=== PATIENT | male | born 1970 | race Caucasian/White ===

== ENCOUNTER → 2025-10-06 19:30 | Outpatient (BNV) | payer OTHER, SELFPAY | PROVIDERS: PCP Nurse Practitioner Family; Visit Provider Internal Medicine | DX: G47.33 Obstructive sleep apnea (adult) (pediatric) (principal) | CPT/HCPCS: 95810 ==

== ENCOUNTER → 2025-10-06 20:30 | Outpatient (REF) | payer OTHER, SELFPAY ==
--- OUTSIDE RECORDS SUMMARY | 2024-11-10 04:30 | XMS_ITS | Encounter Summary ---
Author Name [facility] [place] [facility] [place] Address [address] [place] [address] Care Team Providers Care Rn Intern Name Role Phone ZANE CAO Primary Care Provider Unavaila GASTON Richardson Primary Care Provider Unavailabl e Insurance Providers: All historical and current Section Date Range: From patient's date of to the date document was created. This section includes the names of all active insurance providers for the patient. Insurance Provider Type of Coverage Plan Name Start of Policy Coverage End of Policy Coverage Group Number Member ID Insurance Provider's Telephone Number Policy Dong's Name Patient's Relationship to Policy Dong ANTHEM [place] HIGH DEDUCTIBL E HEALTH PLAN [place] [facility] Oct 09, [id number] HUGEL,DARRICK HAEL PATIENT [place]BS [place] HIGH DEDUCTIBL E HEALTH PLAN [place] [facility] Oct 09, [id number] [phone] HUGEL,DARRICK HAEL PATIENT [place] PREFERRED PROVIDER ORGANIZAT ION (PPO) [employer] [place] [employer] Oct 09, [id number] HUGEL,DARRICK HAEL PATIENT [place] PRESCRIPT ION BCBS [place] [facility] Oct 12, 2022 [id number] HUNTERLDARRICK PATIENT [place] PRESCRIPT ION [place] [facility] Oct 09, 2022 [id number] HUNTERLDARRICK PATIENT [place] ([id number]) PRESCRIPT ION [facility] Oct 12, 2022 [id number] HUNTERL,ADRRICK KEENE PATIENT [employer] PRESCRIPT ION [employer] [place] [employer] Nov 06, 2020 [id number] HUNTERL,DARRICK KEENE PATIENT [employer] PRESCRIPT ION [employer] [place] [employer] Nov 06, 2020 [id number] HUNTERL,DARRICK KEENE PATIENT [employer] [employer] PRESCRIPT [place] Nov 06, 2020 [id number] HUNTERL,DARRICK KEENE PATIENT Selected Encounter This section includes the information on record at [place] for the Encounter. Date/Time Encounter Type Encounter Description Reason Provider Source Nov 10, 2024 09:30 AM OFF/OP EST FEBRUARY X REQ PHY/QHP PRIMARY CARE/MEDICINE ICD-10-CM Z71.89 Other specified counseling SHARON MARCELO [facility] Encounter Template Text not used by [place] Assessments - Encounter Diagnoses This section includes the primary and secondary diagnoses documented for the Encounter. Date/Time Primary/Secondary Diagnosis Diagnosis Name Provider Source Nov 10, 2024 09:50 AM PRIMARY Other specified counseling SHARON MARCELO [facility] [place] [facility] Plan of Treatment: Future Appointments (+ 6 months) and Future Tests (+/- 45 days) The Plan of Treatment section includes future care activities for the patient from all [place] treatmentfacilities. This section includes future appointments and future orders which are active, pending or scheduled. Future Appointments This section includes appointments that were scheduled to occur 6 months from the date of the Encounter, up to a maximum of 20 appointments. The data comes from all [place] treatment facilities. Appointment Date/Time Appointment Type Appointme nt Facility Name Nov 17, 2024 10:00 AM [facility]ORY - [facility] Nov 17, 2024 10:00 AM [facility]ONE [facility] [place] [facility] Nov 24, 2024 03:15 PM [facility] [place] Dec 08, 2024 03:30 PM [facility] [place] [facility] Dec 19, 2024 04:00 PM [facility] [place] Dec 26, 2024 03:00 PM [facility] [place] Jan 06, 2025 02:00 PM [facility] [place] [facility] Jan 06, 2025 02:45 PM [facility] NONE [facility] [place] Jan 09, 2025 03:00 PM [facility] [place] [facility] Jan 23, 2025 03:00 PM [facility] [place] Feb 06, 2025 03:00 PM [facility] [place] February 20, 2025 03:00 PM [facility] [place] March 10, 2025 11:00 AM [facility] [place] [facility] Mar 21, 2025 01:00 PM [facility] [place] [facility] Apr 03, 2025 03:00 PM [facility] [place] [facility] Apr 17, 2025 03:00 PM [facility] [place] [facility] May 10, 2025 03:00 PM [facility] [place] Lab Results: +/- 30 days of the encounter This section includes the Chemistry and Hematology Lab Results [facility] record with [facility] for the patient. Radiology Reports and Pathology Reports are provided separately, in subsequent sections. Lab Results This section contains the Chemistry/Hematology Results that were resulted 30 days before or 30 daysafter the date of the Encounter. Date/Time Source Result Type Result - Unit Interpretation Reference Range Specimen Type Comment Nov 10, 2024 10:37 AM [facility] ALPHA 1 ANTITRYPSIN SERUM Specimen Type: SERUM No comment entered. Ordering Provider: RADHA CAO Report Released Date/Time: Sep 30, 2024 03:27 PM Reporting Lab: [facility] [address] [facility] [address] Performing Lab: [facility] [address] [facility] [facility] [address] ALPHA 1 ANTITRYPSIN 140 mg/dL 90-200 Nov 10, 2024 10:37 AM [facility] BASIC METABOLIC PANEL (non-fasting) SERUM Spe cimen Type: SERUM No comment entered. Ordering Provider: PHILIP KESSLER Report Released Date/Time: Nov 10, 2024 10:02 AM Reporting Lab: [address] [address] Performing Lab: [address] [address] UREA NITROGEN 8 mg/dL 7-25 GLUCOSE 83 mg/dL 65-100 SODIUM 139 mmol/L 135-145 POTASSIUM 3.5 mmol/L 3.5-5.0 CHLORIDE 101 mmol/L 100-110 CO2 29 meq/L 20-30 CREATININE, Serum 0.87 mg/dL 0.50-1.40 eGFR(CKD-EPI 2020) >90 mL/min >60 Nov 10, 2024 10:37 AM [facility] CBC AND DIFF (AUTO) BLOOD Specimen Type: BLOO D No comment entered. Ordering Provider: PHILIP KESSLER Report Released Date/Time: Nov 10, 2024 10:02 AM Reporting Lab: [facility] [address] [facility] [address] Performing Lab: [address] [address] WBC 5.69 10*3/uL 4.50-11.00 RBC 5.46 10*6/uL 4.23-5.66 HGB 16.1 g/dL 12.8-17 HCT 46.9 39.2-50.4 MCV 85.9 fL 82-99 MCHC 34.3 g/dL 30.8-35.1 PLT 254 10*3/uL 140-360 RDW-CV 13.2 12.0-16.0 MONO, ABS 0.58 10*3/uL 0.30-1.10 MCH 29.5 pg 26.2-32.6 NEUT % 55.1 43.7-75.8 LYMPH % 31.1 14.0-42.3 MONO % 10.2 5.1-13.7 EOS % 3.0 0.4-6.8 BASO % 0.4 0.1-2.0 NEUT, ABS 3.14 10*3/uL 2.20-7.60 LYMPH, ABS 1.77 10*3/uL 1.00-3.20 EOS, ABS 0.17 10*3/uL 0.03-0.44 BASO, ABS 0.02 10*3/uL 0.01-0.13 IMMATURE GRAN % 0.2 0.0-0.7 IMMATURE GRAN, ABS 0.01 10*3/uL 0.00-0.0 6 NRBC % 0.0 0.0-0.0 NRBC, ABS 0.00 10*3/uL 0.00-0.00 Vital Signs: All taken on the encounter date This section contains inpatient and outpatient Vital Signs collected on the date of the Encounter. Date/Time Temperature Pulse Blood Pressure Respiratory Rate SP02 Pain Height Weight Body Mass Index Source Nov 10, 2024 09:41 AM 97.9 72 120/78 18 98 5 [facility] Social History: Smoking Status (Most current) and Tobacco Use (All prior to encounter date) This section includes the most current, and the historical, smoking and tobacco- related health factors from the [place] facility where the Encounter took place. Current Smoking Status This section includes the most current smoking, or tobacco-related health factor, from the [place] facility where the Encounter took place. Date/Time Current Smoking Status Comment Henrietta crow Jul 07, 2024 03:00 PM CO-TOBACCO FORMER USER [facility] Tobacco Use History This section includes a history of the smoking, or tobacco-related health factors, that were collected on or before the date of the Encounter. The data comes from the [place] facility where the Encounter took place. Date/Time Smoking Status/Tobacco Use Comment F acility Jul 07, 2024 03:00 PM VA-TOBACCO QUIT 5 TO < 15 YRS [facility] Jun 01, 2023 03:30 PM CO-TOBACCO FORMER USER [facility] Jun 01, 2023 03:30 PM CO-TOBACCO QUIT 5 TO < 15 YRS [facility] Radiology Reports: +/- 30 days of the encounter Radiology Reports For cases when an order for radiology services may have been completed prior to the date of the Encounter, the report list includes the Radiology Reports that were completed up to 30 days before dateof the Encounter. For cases when an order for radiology services may have been completed after the date of the Encounter, the report list also includes the Radiology Reports that were completed up to30 days after date of the Encounter. The data comes from all [place] treatment facilities. Date/Time Radiology Report Provider Source Nov 10, 2024 10:53 AM CHEST (2 VIEWS): TODD JORGENSEN MARTIN [id number] -[id number] M Exm Date: NOV 10, 2024@10:53 Req Phys: PHILIP KESSLER Pat Loc: C[facility]/NO/SICK CALL PA (Req'g Loc Img Loc: [facility]BUILDING 1 Service: [place] [address] (Case [id number] COMPLETE) CHEST (2 VIEWS) (RAD Detailed) CPT:54197 Reason for Study: cough, left rales Clinical History: Report Status: Verified Date Reported: NOV 10, 2024 Date Verified: NOV 10, 2024 Plumber'S Assistant E-Sig:/ES/MARTÍN MCLEOD JR Report: Study: PA and lateral chest x-ray. Comparison: CT scan of the chest from December 29, 2023. Findings: Apical parenchymal scarring again seen and unchanged given differences in technique. The lungs are otherwise clear. Multiple scattered bilateral punctate calcified granulomata are again seen. No acute pulmonary process is identified. The costophrenic sulci are sharp. Cardiac and mediastinal contours and pulmonary vascularity are normal. No acute skeletal abnormalities are identified. Age-appropriate degenerative changes are seen to the spine. Impression: No acute pulmonary pathology. Primary Diagnostic Code: No immediate attention required Primary Interpreting Staff: MARTÍN MCLEOD JR, Radiologist (Plumber'S Assistant) /MARTÍN STERLING JR [facility] Encounter Notes: All associated encounter notes This section contains the clinical notes associated to the Encounter. Date/Time Encounter Note(s) Provider Source Nov 10, 2024 09:42 AM PRIMARY CARE OUTPATIENT NOTE: LOCAL TITLE: AMBULATORY/OUTPATIENT CARE NOTE STANDARD TITLE: PRIMARY CARE OUTPATIENT NOTE DATE OF NOTE: NOV 10, 2024@09:42 ENTRY DATE: NOV 10, 2024@09:42:43 AUTHOR: BISI MARCELO EXP COSIGNER: URGENCY: STATUS: COMPLETED F: Walk In D/A: Vet presents to primary care with complaint of URI. Vet reports becoming ill [place]. Reports fever of 102 beginning on Thursday with productive cough. Vet reports last fever was last evening, afebrile today. Cough continues, initially producing brown phlegm, now clear. Vet believes he had flu, took Tamiflu he had at home which seems to have helped. Vet was not officially tested for flu/covid/rsv. Vet reports continued cough with deep breaths, feels he is shallow breathing because of this. Vet also reports lightheadedness and some disorientation since illness onset. Vet also states he feels congestion has moved from upper chest to lower chest and continues with heat flashes. Vet with history of asthma and lung nodules. Of note Vet also seen for RSV illness 09/13 at [facility]. Lungs are clear and equal bilaterally. Vet here today with concern for pneumonia, also Vet recently prescribe Pulmicort from [facility] which he found helpful. R: Vet to see MD provider today. /tanmay/ Bisi Marcelo MSN RN CNL Primary Care RN Signed: 11/10/2024 09:51 Receipt Acknowledged By: 11/10/2024 09:58 /tanmay/ PHILIP BOOTHE, MS,PA-C PHYSICIAN DIRECTOR MBA BISI MARCELO [facility]
--- OUTSIDE RECORDS SUMMARY | 2024-11-10 05:00 | XMS_ITS | Encounter Summary ---
Author Name [facility] [place] [facility] [place] Address [address] [place] [address] Care Team Providers Care Payroll Representative Name Role Phone ZANE CAO Primary Care [...] E HEALTH PLAN [facility] [place] [facility] Oct 09, [id number] [phone] HUGEL,DARRICK HAEL PATIENT [place] HIGH DEDUCTIBL E HEALTH PLAN [facility] [facility] Oct 09, [id number] HUGEL,DARRICK HAEL PATIENT [place] OF [place] PREFERRED PROVIDER ORGANIZAT ION (PPO) [facility] Oct 09, [id number] HUGEL,DARRICK HAEL PATIENT [place] PRESCRIPT ION BCBS [facility] Oct 12, 2022 [id number] [phone] HUNTERL,DARRICK KEENE PATIENT [place] PRESCRIPT ION [facility] [place] [facility] Oct 09, 2022 [id number] [id number] HUGEL,DARRICK KEENE PATIENT [place] ([id number]) PRESCRIPT ION [facility] Oct 12, 2022 [id number] HUGEL,DARRICK HAMARCO ANTONIO PATIENT [employer] PRESCRIPT ION [facility] [place] [facility] Nov 06, 2020 [id number] HUGEL,DARRICK HAMARCO ANTONIO PATIENT [employer] PRESCRIPT ION [place] [place] Nov 06, 2020 [id number] [phone] HUGEL,DARRICK HAMARCO ANTONIO PATIENT [employer] PRESCRIPT ION [facility] [place] [facility] Nov 06, 2020 [id number] HUGEL,DARRICK KEENE PATIENT Selected Encounter This section includes the information on record at [place] for the Encounter. Date/Time Encounter Type Encounter Description Reason Provider Source Nov 10, 2024 10:00 AM OFFICE O/P EST HI 40 MIN PRIMARY CARE/MEDICINE ICD-10-CM J44.9 Chronic obstructive pulmonary disease, unspecified SHELTON KESSLER [facility] Encounter Template Text not used by [place] Assessments - Encounter Diagnoses This section includes the primary and secondary diagnoses documented for the Encounter. Date/Time Primary/Secondary Diagnosis Diagnosis Name Provider Source Nov 10, 2024 11:23 AM PRIMARY Chronic obstructive pulmonary disease, unspecified [facility] Nov 10, 2024 11:23 AM SECONDARY Post-traumatic stress disorder, chronic SHELTON KESSLER [facility] Plan of Treatment: Future Appointments (+ 6 months) and Future Tests (+/- 45 days) The Plan of Treatment section includes future care activities for the patient from all [place] treatmentfacilities. This section includes future appointments and future orders which are active, pending or scheduled. Future Appointments This section includes appointments that were scheduled to occur 6 months from the date of the Encounter, up to a maximum of 20 appointments. The data comes from all [place] treatment facilities. Appointment Date/Time Appointment Type Appointme nt Facility Name Nov 17, 2024 10:00 AM [facility]ORY - [facility] Nov 17, 2024 10:00 AM [facility]ULATORY - NONE [facility] Nov 24, 2024 03:15 PM AMBULATORY - PSYCHIATRY [facility] Dec 08, 2024 03:30 PM AMBUL[facility]ORY [facility]AT[facility] Dec 19, 2024 04:00 PM AMBULATORY - [...] AMBULATORY - PSYCHIATRY [facility] Jan 23, 2025 03:00 PM AMBULATORY - [facility] Feb 06, 2025 03:00 PM AMBULATORY [facility] February 20, 2025 03:00 PM AMBULATORY [facility]IATRY [facility] March 10, 2025 11:00 AM AMBULATORY - PS[facility]ATRY [facility] Mar 21, 2025 01:00 PM AMBULATORY - PS[facility]ATRY [facility] Apr 03, 2025 03:00 PM AMBULATORY - PS[facility]ATRY [facility] Apr 17, 2025 03:00 PM AMBUL[facility]ORY - [facility]RY [facility] May 10, 2025 03:00 PM AMBULATORY - PS[facility]IATRY [facility] Lab Results: +/- 30 days of the [...] Type Comment Nov 10, 2024 10:37 AM [facility] ALPHA 1 ANTITRYPSIN SERUM Specimen Type: SERUM No comment entered. Ordering Provider: RADHA CAO Report Released Date/Time: Sep 30, 2024 03:27 PM Reporting Lab: [facility] [address] [address] Performing Lab: [facility] [address] [facility] [address] ALPHA 1 ANTITRYPSIN 140 mg/dL 90-200 Nov 10, 2024 10:37 AM [facility] BASIC METABOLIC PANEL (non-fasting) SERUM Spe cimen Type: SERUM No comment entered. Ordering Provider: SHELTON KESSLER Report Released Date/Time: Nov 10, 2024 10:02 AM Reporting Lab: [facility] [address] [address] Performing Lab: [address] [address] UREA NITROGEN 8 mg/dL 7-25 GLUCOSE 83 mg/dL 65-100 SODIUM 139 mmol/L 135-145 POTASSIUM 3.5 mmol/L 3.5-5.0 CHLORIDE 101 mmol/L 100-110 CO2 29 meq/L 20-30 CREATININE, Serum 0.87 mg/dL 0.50-1.40 eGFR(CKD-EPI 2020) >90 mL/min >60 Nov 10, 2024 10:37 AM [facility] CBC AND DIFF (AUTO) BLOOD Specimen Type: BLOO D No comment entered. Ordering Provider: SHELTON KESSLER Report Released Date/Time: Nov 10, 2024 10:02 AM Reporting Lab: [facility] [address] [address] Performing Lab: [address] [address] WBC 5.69 10*3/uL 4.50-11.00 RBC 5.46 10*6/uL [...] AM 97.9 72 120/78 18 98 5 [facility] Social History: Smoking Status (Most current) and Tobacco Use (All prior to encounter date) This section includes the most current, and the historical, smoking and tobacco- related health factors from the [place] facility where the Encounter took place. Current Smoking Status This section includes the most current smoking, or tobacco-related health factor, from the [place] facility where the Encounter took place. Date/Time Current Smoking Status Comment Facil ity Jul 07, 2024 03:00 PM VA-TOBACCO FORMER USER [facility] Tobacco Use History This section includes a history of the smoking, or tobacco-related health factors, that were collected on or before the date of the Encounter. The data comes from the [place] facility where the Encounter took place. Date/Time Smoking Status/Tobacco Use Comment F acility Jul 07, 2024 03:00 PM VA-TOBACCO QUIT 5 TO < 15 YRS [facility] Jun 01, 2023 03:30 PM VA-TOBACCO FORMER USER [facility] Jun 01, 2023 03:30 PM [place]-TOBACCO QUIT 5 TO < 15 YRS [facility] Radiology Reports: +/- 30 days of [...] the Encounter. The data comes from all [place] treatment facilities. Date/Time Radiology Report Provider Source Nov 10, 2024 10:53 AM CHEST (2 VIEWS): TODD JORGENSEN [id number] -[id number] M Exm Date: NOV 10, 2024@10:53 Req Phys: SHELTON KESSLER Pat Loc: CWM/NO/SICK CALL PA (Req'g Loc Img Loc: [facility]/BUILDING 1 Service: [place] [address] (Case [id number] COMPLETE) CHEST (2 VIEWS) (RAD Detailed) CPT:84604 Reason for Study: cough, left rales Clinical History: Report Status: Verified Date Reported: NOV 10, 2024 Date Verified: NOV 10, 2024 Alligator Shear Operator E-Sig:/ES/MARTÍN MCLEOD JR Report: Study: PA and [...] Primary Interpreting Staff: MARTÍN MCLEOD JR, Radiologist (Alligator Shear Operator) /MARTÍN STERLING JR [facility] Encounter Notes: All associated encounter notes This section contains the clinical notes associated to the Encounter. Date/Time Encounter Note(s) Provider Source Nov 10, 2024 11:15 AM LETTERS: LOCAL TITLE: PATIENT LETTER (T) STANDARD TITLE: LETTERS DATE OF NOTE: NOV 10, 2024@11:15 ENTRY DATE: NOV 10, 2024@11:16:05 AUTHOR: SHELTON KESSLER EXP COSIGNER: URGENCY: STATUS: COMPLETED DEPARTMENT OF [facility] Toll Free Number Primary Care Telephone Assistance can be reached at extension [phone] [facility] scheduling can be reached at extension [phone] [facility] scheduling can be reached at ext [phone] TODD JORGENSEN [address] [place] [address], [phone] TO WHOM IT MAY CONCERN: TODD JORGENSEN was seen today 11/10/2024 and may resume his regular duty at work as of 11/14/2024. Thank you. Sincerely, Shelton Kessler, MS, PA-C [facility] Sincerely, Your Primary Care Team [facility] [address] [address] [place] [address] [phone] [facility] [address] [place] [address] [place] [address] [phone] [facility] [address] [facility],1st [facility] [address] [place] [address] [place] [address] SHELTON KESSLER [facility] Nov 10, 2024 09:59 AM PHYSICIAN CRISIS MENTAL HEALTH THERAPIST NOTE: LOCAL TITLE: PA NOTE STANDARD TITLE: PHYSICIAN CRISIS MENTAL HEALTH THERAPIST NOTE DATE OF NOTE: NOV 10, 2024@09:59 ENTRY DATE: NOV 10, 2024@09:59:58 AUTHOR: SHELTON KESSLER EXP COSIGNER: URGENCY: STATUS: COMPLETED MARYLOU NOTE Has ADDENDA SICK CALL VISIT HPI: 54-year-old male with below noted past medical history presents today for evaluation of a series of upper respiratory and lower respiratory infections since September. He was diagnosed with RSV in September at [facility]. He was given Pulmicort which she finds helpful. He does endorse childhood asthma. [place] is a previous tobacco user but he is smoking cigarettes approximately 1 pack/day with cessation in 2011. He reports a fever of 102 last Thursday with symptoms consistent with influenza. He had a pack of Tamiflu at the house and used it with improvement. He is almost out of Pulmicort. He did have a discolored sputum of brown which is now mostly clear. He still feels as if he cannot get a good deep breath. has excessive stress both with work and with situations at home including a in the family. He is very anxious about possibly having pneumonia or something more sinister. Denies any chest pain. Does feel slightly weak and intermittently lightheaded with seeing spots which she feels is his blood pressure. Review of his vital signs show no abnormality. REVIEW OF SYSTEMS: A 12 point review of systems is negative except as noted in the HPI. Active Medical Problems: Active Problem Exposure to potentially hazardous s 12/30/2023 JOSE POSADA Right knee pain M25.561 10/19/2023 ZANE CAO Chronic Post-Traumatic Stress Disor 07/09/2023 ADELSO HERNANDEZ Social anxiety disorder F40.10 07/14/2023 YAYA CHOWDHURY Primary erectile dysfunction N52.9, 07/09/2023 BRANT SEGOVIA Multiple nodules of lung R91.8 06/30/2023 SHELTON KESSLER Screening for malignant neoplasm of 06/25/2023 ZANE CAO Family history of cancer of colon Z 06/25/2023 ZANE CAO Hypothyroidism ([facility] [id number]) E03.9 06/25/2023 ZANE CAO Hyperlipidemia ([facility] [id number]) E78.5 06/25/2023 ZANE CAO Asthma ([facility] [id number]) J45.909 06/25/2023 ZANE CAO Fatty liver K76.0 06/25/2023 ZANE CAO Moderate Recurrent Major Depression 06/01/2023 ADELSO HERNANDEZ Attention deficit hyperactivity dis 06/01/2023 ADELSO HERNANDEZ Meds: Active Outpatient Medications (including Supplies): ATOMOXETINE 60MG CAP TAKE ONE CAPSULE BY MOUTH TWICE DAILY ACTIVE Indication: FOR ADHD CYANOCOBALAMIN 1000MCG TAB TAKE ONE TABLET BY MOUTH ONCE ACTIVE DAILY Indication: FOR PREVENTION OF VITAMIN B12 DEFICIENCY DM 10/GUAIFENESN 100MG/5ML (AF & SF) LIQ TAKE 5 MLS BY ACTIVE MOUTH EVERY 6 HOURS NEEDED Indication: FOR COUGH LEVOTHYROXINE NA (SYNTHROID) 125MCG TAB TAKE ONE TABLET BY ACTIVE (S) MOUTH EVERY MORNING 30 MINUTES BEFORE BREAKFAST TAKE ON AN EMPTY STOMACH WITH A FULL GLASS OF WATER Indication: FOR THYROID OMEPRAZOLE 20MG EC CAP TAKE TWO CAPSULES BY MOUTH EVERY ACTIVE MORNING 30 MINUTES BEFORE BREAKFAST Indication: FOR EXCESSIVE PRODUCTION OF STOMACH ACID SERTRALINE HCL 100MG TAB TAKE ONE-HALF TABLET BY MOUTH ACTIVE ONCE DAILY Indication: FOR MAJOR DEPRESSIVE DISORDER SIMVASTATIN 80MG TAB TAKE ONE-HALF TABLET BY MOUTH ONCE ACTIVE DAILY FOR CHOLESTEROL Indication: FOR HIGH CHOLESTEROL Allergies: AMPHETAMINES, RITALIN, ADDERALL Date Vital Measurement Qualifiers 11/10/2024 09:41 Temp F (C) 97.9 (36.6) Pulse 72 Respir 18 BP 120/78 Pain 5 POx (L/Min)(%) 98 At Rest FOCUSED EXAMINATION GEN: WD, non-toxic, anxious male, NAD HEENT: NC/AT Neck: supple, No LAD Lungs: Left upper lobe with wheezes and rales noted both anterior and posterior otherwise clear COR: Regular rate and rhythm Labs: WBC 5.69 K/cmm 4.50 - 11.00 RBC 5.46 M/cmm 4.23 - 5.66 HGB 16.1 g/dL 12.8 - 17 HCT 46.9 % 39.2 - 50.4 MCV 85.9 fl 82 - 99 MCH 29.5 pg 26.2 - 32.6 MCHC 34.3 g/dL 30.8 - 35.1 RDW-CV 13.2 % 12.0 - 16.0 PLT 254 K/cmm 140 - 360 Basic: pending Chest x-ray: Report: Study: PA and lateral chest x-ray. [...] the spine. Impression: No acute pulmonary pathology. MDM: No evidence of toxicity , airway compromise or acute bacterial infection. would like a work note (written). He would like a refill of Pulmocort (this is NF). He is agreeable to Wixela with instructions to rinse after use. He will follow up with PCP if wixela is ineffective. RTC PRN. ASSESSMENT/PLAN Chronic Obstructive Pulmonary Disease, unspecified as above Chronic Post-Traumatic Stress Disorder stable, No HI/SI. Will F/U with On this date of the encounter, I spent 40 minutes on some or all of the following: chart review ,history, physical examination, treatment planning, education and counseling of the patient/family/health care / medical job titles, placing orders, communicating with other health care providers and documentation in the electronic health record. able to verbalize understanding of plan of care and agrees. >> MEDICATIONS Reviewed and reconciled with /tanmay/ SHELTON BOOTHE MS,PAShiC PHYSICIAN CRISIS MENTAL HEALTH THERAPIST Signed: 11/10/2024 11:25 11/10/2024 ADDENDUM STATUS: COMPLETED SODIUM 139 mmol/L 135 - 145 POTASSIUM 3.5 mmol/L 3.5 - 5.0 CHLORIDE 101 mmol/L 100 - 110 CO2 29 mEq/L 20 - 30 UREA NITROGEN 8 mg/dL 7 - 25 GLUCOSE 83 mg/dL 65 - 100 CREATININE, Serum 0.87 mg/dL 0.50 - 1.40 eGFR(CKD-EPI 2020) >90 mL/min Ref: >=60 /tanmay/ SHELTON BOOTHE MS,PAShiC PHYSICIAN CRISIS MENTAL HEALTH THERAPIST Signed: 11/10/2024 11:31 [facility]ESS[facility]ER [facility]
--- OUTSIDE RECORDS SUMMARY | 2024-11-24 10:15 | XMS_ITS | Encounter Summary ---
Author Name [facility] [facility] [place] [facility] [place] Address [address] [place] [address] Care Team Providers Care Charger Tester Name Role Phone ZANE CAO Primary Care [...] N [facility] Oct 09, [id number] [phone] HUGEL,DARRICK HAEL PATIENT [place] HIGH DEDUCTIBL E HEALTH PLAN [facility] [place] [facility] [facility] Oct 09, [id number] [phone] HUGEL,DARRICK HAEL PATIENT [place] OF [place] PREFERRED PROVIDER ORGANIZAT ION (PPO) [facility] [employer] Oct 09, [id number] HUGEL,DARRICK HAEL PATIENT [place] PRESCRIPT ION BCBS CAR[place] ARK [facility] Oct 12, 2022 [id number] [phone] HUGEL,DARRICK HAMARCO ANTONIO PATIENT [place] PRESCRIPT ION [place] [facility] Oct 09, 2022 [id number] [phone] HUGEL,DARRICK HAEL PATIENT [place] ([id number]) PRESCRIPT ION [facility] Oct 12, 2022 [id number] HUGEL,DARRICK HAEL PATIENT [employer] PRESCRIPT ION [facility] Nov 06, 2020 [id number] [phone] HUGEL,DARRICK HAEL PATIENT [employer] PRESCRIPT ION [place] [place] Nov 06, 2020 [id number] HUGEL,DARRICK HAEL PATIENT [employer] PRESCRIPT ION [employer] Nov 06, 2020 [id number] HUGEL,DARRICK KEENE PATIENT Selected Encounter This section includes the information on record at [place] for the Encounter. Date/Time Encounter Type Encounter Description Reason Provider Source Nov 24, 2024 03:15 PM PSYTX W PT 45 MINUTES [facility] - IND ICD-10-CM F33.1 Major depressive disorder, recurrent, moderate BINU ANGUIANO E Encounter Template Text not used by [place] Assessments - Encounter Diagnoses This section includes the primary and secondary diagnoses documented for the Encounter. Date/Time Primary/Secondary Diagnosis Diagnosis Name Provider Source Dec 03, 2024 11:20 AM PRIMARY Major depressive disorder, recurrent, moderate [facility]GUI[facility]O [facility] Dec 03, 2024 11:20 AM SECONDARY Post-traumatic stress disorder, chronic [facility] Plan of Treatment: Future Appointments (+ 6 months) and Future Tests (+/- 45 days) The Plan of Treatment section includes future care activities for the patient from all [place] treatmentfacilities. This section includes future appointments and future orders which are active, pending or scheduled. Future Appointments This section includes appointments that were scheduled to occur 6 months from the date of the Encounter, up to a maximum of 20 appointments. The data comes from all [place] treatment facilities. Appointment Date/Time Appointment Type Appointme nt Facility Name Dec 08, 2024 03:30 PM AMBULATORY - [...] AMBULATORY - PSYCHIATRY [facility] Jan 23, 2025 03:00 PM [facility] Feb 06, 2025 03:00 PM AMBULATORY - [facility] February 20, 2025 03:00 PM AMBULATORY - [facility] March 10, 2025 11:00 AM AMBULATORY - PS[facility] Mar 21, 2025 01:00 PM AMBULATORY - [facility] Apr 03, 2025 03:00 PM AMBULATORY - PS[facility]IATRY [facility] Apr 17, 2025 03:00 PM AMBULATORY - PS[facility] May 10, 2025 03:00 PM AMBULATORY - PSYCHIATRY [facility] Lab Results: +/- 30 days of [...] Type Comment Nov 10, 2024 10:37 AM [facility] ALPHA 1 ANTITRYPSIN SERUM Specimen Type: SERUM No comment entered. Ordering Provider: RADHA CAO Report Released Date/Time: Sep 30, 2024 03:27 PM Reporting Lab: [facility] [address] [address] Performing Lab: [facility] [address] [facility] [address] ALPHA 1 ANTITRYPSIN 140 mg/dL 90-200 Nov 10, 2024 10:37 AM [facility] BASIC METABOLIC PANEL (non-fasting) SERUM Spe cimen Type: SERUM No comment entered. Ordering Provider: PHILIP KESSLER Report Released Date/Time: Nov 10, 2024 10:02 AM Reporting Lab: [address] [address] Performing Lab: [facility] [address] [facility] [address] UREA NITROGEN 8 mg/dL 7-25 GLUCOSE 83 mg/dL 65-100 SODIUM 139 mmol/L 135-145 POTASSIUM 3.5 mmol/L 3.5-5.0 CHLORIDE 101 mmol/L 100-110 CO2 29 meq/L 20-30 CREATININE, Serum 0.87 mg/dL 0.50-1.40 eGFR(CKD-EPI 2020) >90 mL/min >60 Nov 10, 2024 10:37 AM [facility] CBC AND DIFF (AUTO) BLOOD Specimen Type: BLOO D No comment entered. Ordering Provider: PHILIP KESSLER Report Released Date/Time: Nov 10, 2024 10:02 AM Reporting Lab: [facility] [address] [facility] [address] Performing Lab: [facility] [address] [address] WBC 5.69 10*3/uL 4.50-11.00 RBC 5.46 10*6/uL [...] 0.0 0.0-0.0 NRBC, ABS 0.00 10*3/uL 0.00-0.00 Social History: Smoking Status (Most current) and Tobacco Use (All prior to encounter date) This section includes the most current, and the historical, smoking and tobacco- related health factors from the [place] facility where the Encounter took place. Current Smoking Status This section includes the most current smoking, or tobacco-related health factor, from the [place] facility where the Encounter took place. Date/Time Current Smoking Status Comment Facil ity Jul 07, 2024 03:00 PM VA[facility]TO[facility]ACCO [facility] Tobacco Use History This section includes a history of the smoking, or tobacco-related health factors, that were collected on or before the date of the Encounter. The data comes from the [place] facility where the Encounter took place. Date/Time Smoking Status/Tobacco Use Comment F acility Jul 07, 2024 03:00 PM VA-TOBACCO QUIT 5 TO < 15 YRS [facility] [place] [facility] Jun 01, 2023 03:30 PM VA-TOBACCO FORMER USER [facility] [place] [facility] Jun 01, 2023 03:30 PM VA-TOBACCO QUIT 5 TO < 15 YRS [place] [facility] Radiology Reports: +/- 30 days of the [...] the Encounter. The data comes from all [place] treatment facilities. Date/Time Radiology Report Provider Source Nov 10, 2024 10:53 AM CHEST (2 VIEWS): TODD JORGENSEN [id number] [phone] M Exm Date: NOV 10, 2024@10:53 Req Phys: PHILIP KESSLER Pat Loc: CWM/NO/SICK CALL PA (Req'g Loc Img Loc: [facility] 1 Service: [place] [address] (Case [id number] COMPLETE) CHEST (2 VIEWS) (RAD Detailed) CPT:16437 Reason for Study: cough, left rales Clinical History: Report Status: Verified Date Reported: NOV 10, 2024 Date Verified: NOV 10, 2024 Rehabilitation Services Counselor E-Sig:/[email or web address]/MARTÍN MCLEOD JR Report: Study: PA and lateral [...] Primary Interpreting Staff: MARTÍN MCLEOD JR, Radiologist (Rehabilitation Services Counselor) /MARTÍN STERLING JR [facility] Encounter Notes: All associated encounter notes This section contains the clinical notes associated to the Encounter. 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 and TW collaboratively discussed options to best support , namely either moving forward with a consult for an EBP to address childhood traumas and PTSD underlying present difficulties, or focusing bridge sessions (scheduled as-needed) on coping skill development to manage current stressors; [place] elected for the latter and is agreeable to a skills-based, active, and present-focused approach to bolster current coping capacities. Dx: MDD, recurrent PTSD ADHD, per chart MSE: A&O x 4, cooperative Speech: normal RRTP Psychomotor/bx/presentatio n: unremarkable Thought process: linear; goal-directed Thought content: unremarkable Mood: appeared somewhat dysphoric; congruent, full affect No recent nor remote memory impairment endorsed; not formally assessed No recent AVH endorsed nor observed in present session; did not appear to be responding to internal stimuli Insight: fair Judgment: fair denied current SI/HI; did not appear to be in any acute distress Ongoing Plan: Next appt with this content writer scheduled for 12/08/24. encouraged to continue participation in psychiatry services. /linda/ KAREN ANGUIANO PSYD CLINICAL PSYCHOLOGIST - [facility] Signed: 12/05/2024 16:08 KAREN ANGUIANO [facility]
--- OUTSIDE RECORDS SUMMARY | 2024-12-08 10:30 | XMS_ITS ---
Author Name [facility] Organization [facility] [place] Address [address] [place] [address] Care Team Providers Care Evp And Chief Operating Officer Name Role Phone ZANE CAO Primary Care [...] [place] [facility] Oct 09, [id number] [phone] HUGEL,DARRICK HAEL PATIENT [place]BS [place] HIGH DEDUCTIBL E HEALTH PLAN [facility] [place] [facility] Oct 09, [id number] [phone] HUGEL,DARRICK HAEL PATIENT [place] OF [place] PREFERRED PROVIDER ORGANIZAT ION (PPO) [facility] [employer] Oct 09, [id number] HUGEL,DARRICK HAEL PATIENT [place] PRESCRIPT ION BCBS [facility] [facility] Oct 12, 2022 [id number] HUNTERLDARRICK PATIENT [place] PRESCRIPT ION [facility] [place] [facility] Oct 09, 2022 [id number] [id number] HUNTERLDARRICK PATIENT CAREMARK ([id number]) PRESCRIPT ION [facility] Oct 12, 2022 [id number] HUNTERL,DARRICK KEENE PATIENT [employer] BR[employer]ATION PRESCRIPT ION [facility] Nov 06, 2020 [id number] HUNTERL,DARRICK HAMARCO ANTONIO PATIENT [employer] PRESCRIPT ION [facility] [place] [employer] Nov 06, 2020 [id number] HUGEL,DARRICK KEENE PATIENT [employer] [employer] PRESCRIPT ION [place] Nov 06, 2020 [id number] HUNTERL,DARRICK KEENE PATIENT Selected Encounter This section includes the information on record at MS for the Encounter. Date/Time Encounter Type Encounter Description Reason Pro vider Source Dec 08, 2024 03:30 PM Outpatient Encounter [facility] Encounter Template Text not used by MS Plan of Treatment: Future Appointments (+ 6 months) and Future Tests (+/- 45 days) The Plan of Treatment section includes future care activities for the patient from all [place] treatmentfacilities. This section includes future appointments and future orders which are active, pending or scheduled. Future Appointments This section includes appointments that were scheduled to occur 6 months from the date of the Encounter, up to a maximum of 20 appointments. The data comes from all MS treatment facilities. Appointment Date/Time Appointment Type Appointme nt Facility Name Dec 19, 2024 04:00 PM AMBULATORY - PSYCHIATRY [facility] [place] [facility] Dec 26, 2024 03:00 PM AMBULATORY - PSYCHIATRY [facility] [place] [facility] Jan 06, 2025 02:00 PM AMBULATORY - MEDICINE [facility] [place] [facility] Jan 06, 2025 02:45 PM AMBULATORY - NONE [facility] [place] [facility] Jan 09, 2025 03:00 PM AMBULATORY - PSYCHIATRY [facility] [place] [facility] Jan 23, 2025 03:00 PM AMBULATORY - PSYCHIATRY [facility] [place] [facility] Feb 06, 2025 03:00 PM AMBULATORY - PSYCHIATRY [facility] [place] [facility] February 20, 2025 03:00 PM [facility] March 10, 2025 11:00 AM [facility] [place] [facility] Mar 21, 2025 01:00 PM [facility] [place] [facility] Apr 03, 2025 03:00 PM [facility] [place] [facility] Apr 17, 2025 03:00 PM [facility] [place] [facility] May 10, 2025 03:00 PM [facility] May 29, 2025 03:00 PM [facility] Active, Pending, and Scheduled Orders This section includes a listing of several types of active, pending, and scheduled orders, including clinic medications orders, diagnostic test orders, procedure orders and consult orders; where the start date of the order is 45 days before the date of the Encounter or 45 days after the date of theEncounter. The data comes from all MS treatment facilities. Test Date/Time Test Type Test Details Facility Name Jan 19, 2025 12:00 AM Laboratory - Chemistry Order TOTAL TESTOSTERONE BLOOD (SST-SERUM) [facility] Lab Results: +/- 30 days of the encounter This section includes the Chemistry and Hematology Lab Results on record with MS for the patient. Radiology Reports and Pathology Reports are provided separately, in subsequent sections. Lab Results This section contains the Chemistry/Hematology Results that were resulted 30 days before or 30 daysafter the date of the Encounter. Date/Time Source Result Type Result - Unit Interpretation Reference Range Specimen Type Comment Jan 05, 2025 02:02 PM [facility] PT & INR (PROTIME) PLASMA Specimen Type: PLASMA No comment entered. Ordering Provider: ZANE CAO Report Released Date/Time: Dec 21, 2024 03:37 PM Reporting Lab: [facility] [address] [facility] [address] Performing Lab: [address] [address] INR 1.0 PROTIME 10.8 s 10.0-13.1 Jan 05, 2025 02:02 PM [facility] HEPATITIS B SURFACE ANTIBODY (HBsAb)- SERUM Specimen Type: SERUM No comment entered. Ordering Provider: ZANE CAO Report Released Date/Time: Dec 21, 2024 03:37 PM Reporting Lab: [address] [address] Performing Lab: [facility] Jan 05, 2025 02:02 PM [facility] CERULOPLASMIN SERUM Specimen Type: SERUM No comment entered. Ordering Provider: ZANE CAO Report Released Date/Time: Dec 21, 2024 03:37 PM Reporting Lab: [address] [address] Performing Lab: [facility] [address] [facility] [address] CERULOPLASMIN 27 mg/dL 20-60 Jan 05, 2025 02:02 PM [facility] HEPATITIS B SURFACE ANTIGEN (HBsAg)- SERUM Specimen Type: SERUM Comment: Hep B Surf Ag: Negative for HBsAg. Other markers of Hepatitis B virus are needed to ascertain Hepatitis B infection status. Ordering Provider: ZANE CAO Report Released Date/Time: Dec 21, 2024 03:37 PM Reporting Lab: [address] [address] Performing Lab: [facility] [address] [facility] [address] HBsAg Non Reactive Non Reactive Jan 05, 2025 02:02 PM [facility] TOSHA SCREEN/TITER SERUM Specimen Type: SERUM No comment entered. Ordering Provider: ZANE CAO Report Released Date/Time: Dec 21, 2024 03:37 PM Reporting Lab: [facility] [address] [facility] [address] Performing Lab: [facility] [address] [facility] [facility] [address] TOSHA SCREEN NEG NEG <1:40 Jan 05, 2025 02:02 PM [facility] HEPATITIS A ANTIBODY (IGG) SERUM Specimen Typ e: SERUM Comment: Hepatitis A IgG: A 'Reactive' result indicates previous exposure to Hepatitis A virus through infection or vaccination. Ordering Provider: ZANE CAO Report Released Date/Time: Dec 21, 2024 03:37 PM Reporting Lab: [facility] [address] Performing Lab: [facility] [address] [facility] [address] HEPATITIS A ANTIBODY (IGG) REACTIVE Non Reactive Jan 05, 2025 02:02 PM [facility] PTH INTACT SERUM Specimen Type: SERUM No comment entered. Ordering Provider: ZANE CAO Report Released Date/Time: Dec 21, 2024 03:37 PM Reporting Lab: [facility] [address] Performing Lab: [facility] [address] PTH INTACT 57.0 pg/mL 8.7-77.1 Jan 05, 2025 02:02 PM [facility] TESTOSTERONE, TOTAL (WHV) SERUM Specimen Type : SERUM No comment entered. Ordering Provider: ZANE CAO Report Released Date/Time: Dec 21, 2024 03:37 PM Reporting Lab: [facility] [address] Performing Lab: [facility] [address] [facility] [address] TESTOSTERONE, TOTAL (WHV) 147.23 ng/dL L 2 20.00-892.00 Jan 05, 2025 02:02 PM [facility] LH SERUM Specimen Type: SERUM Comment: PROLACTIN female range:PREMENOPAUSAL 3-27, POSTMENOPAUSAL 2-20 Male range changed from 2-14 to 3-20 on 01/03/13. Ordering Provider: ZANE CAO Report Released Date/Time: Dec 21, 2024 03:37 PM Reporting Lab: [facility] [place] [facility] [address] [facility] [address] Performing Lab: [facility] [place] [facility] [address] [facility] [facility] [address] LH 2.21 1-9 Jan 05, 2025 02:02 PM [facility] FSH SERUM Specimen Type: SERUM No comment entered. Ordering Provider: ZANE CAO Report Released Date/Time: Dec 21, 2024 03:37 PM Reporting Lab: [facility] [address] [facility] [address] Performing Lab: [facility] [address] [facility] [facility] [address] FSH 3.49 1-19 Jan 05, 2025 02:02 PM [facility] PROLACTIN SERUM Specimen Type: SERUM Comment: PROLACTIN female range:PREMENOPAUSAL 3-27, POSTMENOPAUSAL 2-20 Male range changed from 2-14 to 3-20 on 01/03/13. Ordering Provider: ZANE CAO Report Released Date/Time: Dec 21, 2024 03:37 PM Reporting Lab: [facility] [place] [facility] [address] [facility] [address] Performing Lab: [facility] TRN [facility] [address] [facility] [address] PROLACTIN 10.73 ng/mL 3-Jan 05, 2025 02:02 PM [facility] FERRITIN SERUM Specimen Type: SERUM No comment entered. Ordering Provider: ZANE CAO Report Released Date/Time: Dec 21, 2024 03:37 PM Reporting Lab: [facility] [place] [facility] [address] [facility] [address] Performing Lab: [facility] [address] [facility] [address] FERRITIN 229 ng/mL 20-300 Jan 05, 2025 02:02 PM [facility] HEPATITIS C ANTIBODY (HCV)-ARC SERUM Specimen Type: SERUM Comment: Hep C Ab: No HCV antibody detected. If recent infection is suspected or other evidence suggests HCV infection, consider HCV nucleic acid testing Ordering Provider: ZANE CAO Report Released Date/Time: Dec 21, 2024 03:37 PM Reporting Lab: [facility]N [facility] [address] [facility] [address] Performing Lab: [address] [address] HEPATITIS C ANTIBODY NON-REACTIVE NON-RE ACTIVE Jan 05, 2025 02:02 PM [facility] PSA SERUM Specimen Type: SERUM No comment entered. Ordering Provider: ZANE CAO Report Released Date/Time: Dec 21, 2024 03:37 PM Reporting Lab: [facility]USE[facility] [address] [facility] [address] Performing Lab: [facility] [address] [facility] [address] PSA 0.59 ng/mL 0.00-4.00 Jan 05, 2025 02:02 PM [facility] TSH SERUM Specimen Type: SERUM No comment entered. Ordering Provider: ZANE CAO Report Released Date/Time: Dec 21, 2024 03:37 PM Reporting Lab: [facility] [address] [facility] [address] Performing Lab: [facility]ITAL[facility] [address] [facility] [address] TSH 0.74 u[IU]/mL 0.35-5.00 Jan 05, 2025 02:02 PM [facility] IRON & TIBC PANEL SERUM Specimen Type: SERUM No comment entered. Ordering Provider: ZANE CAO Report Released Date/Time: Dec 21, 2024 03:37 PM Reporting Lab: [facility]ITALUSEJ[facility] [address] [facility] [address] Performing Lab: [facility]N [facility]ITAL[facility] [address] [facility] [address] TIBC 281 ug/dL 204-475 IRON 85 ug/dL 40-160 Transferrin Saturation 30.2 20.0-50.0 Transferrin (TRF) 213 mg/dL 200-360 Jan 05, 2025 02:02 PM [facility] LIVER FUNCTION SERUM Specimen Type: SERUM No comment entered. Ordering Provider: ZANE CAO Report Released Date/Time: Dec 21, 2024 03:37 PM Reporting Lab: [facility] [address] [facility] [address] Performing Lab: [address] [address] PROTEIN,TOTAL 7.9 g/dL 6.0-8.3 ALBUMIN 4.1 g/dL 3.5-5.0 ALKALINE PHOSPHATASE 72 U/L 40-150 AST 18 U/L 5-34 ALT 27 U/L BILIRUBIN, TOTAL 0.3 mg/dL 0.2-1.2 Jan 05, 2025 02:02 PM [facility] ALBUMIN SERUM Specimen Type: SERUM No comment entered. Ordering Provider: ZANE CAO Report Released Date/Time: Dec 21, 2024 03:37 PM Reporting Lab: [facility] [address] [facility] [address] Performing Lab: [facility] [address] ALBUMIN 4.1 g/dL 3.5-5.0 Jan 05, 2025 02:02 PM [facility] LIPID PANEL, NON FASTING SERUM Specimen Type: SERUM No comment entered. Ordering Provider: ZANE CAO Report Released Date/Time: Dec 21, 2024 03:37 PM Reporting Lab: [facility] [address] [facility] [address] Performing Lab: [address] [address] CHOLESTEROL 251 mg/dL H TRIGLYCERIDE 254 mg/dL H 0-150 LDL calculated 157 mg/dL H 0-129 CHOL/HDL 5.8 HDL CHOLESTEROL 43 mg/dL 40-60 Nov 10, 2024 10:37 AM [facility] ALPHA 1 ANTITRYPSIN SERUM Specimen Type: SERU M No comment entered. Ordering Provider: ZANE CAO Report Released Date/Time: Sep 30, 2024 03:27 PM Reporting Lab: [facility] [address] [facility] [address] Performing Lab: [facility] [address] [facility] [facility] [address] ALPHA 1 ANTITRYPSIN 140 mg/dL 90-200 Nov 10, 2024 10:37 AM [facility] BASIC METABOLIC PANEL (non-fasting) SERUM Spe cimen Type: SERUM No comment entered. Ordering Provider: PHILIP KESSLER Report Released Date/Time: Nov 10, 2024 10:02 AM Reporting Lab: [address] [address] Performing Lab: [address] [address] UREA NITROGEN 8 mg/dL 7-25 GLUCOSE 83 mg/dL 65-100 SODIUM 139 mmol/L 135-145 POTASSIUM 3.5 mmol/L 3.5-5.0 CHLORIDE 101 mmol/L 100-110 CO2 29 meq/L 20-30 CREATININE, Serum 0.87 mg/dL 0.50-1.40 eGFR(CKD-EPI 2020) >90 mL/min >60 Nov 10, 2024 10:37 AM [facility] CBC AND DIFF (AUTO) BLOOD Specimen Type: BLOO D No comment entered. Ordering Provider: PHILIP KESSLER Report Released Date/Time: Nov 10, 2024 10:02 AM Reporting Lab: [facility] [address] [facility] [address] Performing Lab: [address] [address] WBC 5.69 10*3/uL 4.50-11.00 RBC 5.46 10*6/uL [...] and tobacco- related health factors from the MS facility where the Encounter took place. Current Smoking Status This section includes the most current smoking, or tobacco-related health factor, from the MS facility where the Encounter took place. Date/Time Current Smoking Status Comment Facil ity Jul 07, 2024 03:00 PM MS-TOBACCO QUIT 5 TO < 15 YRS [facility] [place] [facility] Tobacco Use History This section includes a history of the smoking, or tobacco-related health factors, that were collected on or before the date of the Encounter. The data comes from the MS facility where the Encounter took place. Date/Time Smoking Status/Tobacco Use Comment F acility Jul 07, 2024 03:00 PM VA-TOBACCO QUIT 5 TO < 15 YRS [facility] Jun 01, 2023 03:30 PM VA-TOBACCO FORMER USER [facility] Jun 01, 2023 03:30 PM MS-TOBACCO QUIT 5 TO < 15 YRS [facility] Radiology Reports: +/- 30 days of the [...] the Encounter. The data comes from all [place] treatment facilities. Date/Time Radiology Report Provider Source Jan 06, 2025 02:15 PM LDCT LUNG CANCER SCREENING: TODD JORGENSEN [id number] -[id number] M Exm Date: JAN 06, 2025@14:15 Req Phys: ZANE CAO Loc: [facility] LCS CHART CONSULT (Req'g L Img Loc: [facility]/CT Service: [place] [address] (Case [id number] COMPLETE) LDCT LUNG CANCER SCREENING (CT Detailed) CPT:07840 Reason for Study: Lung Cancer Screen Clinical History: , 2011 Comparison: LDCT 6 m f/u 12/29/23 Lung RADS 2 Smaller size of a now 5.8 mm, previously 6.7 mm, solid well-circumscribed juxtapleural left lower lobe pulmonary nodule, 8-337. Other Nodules: 5.0 mm solid right upper lobe well-circumscribed ovoid pulmonary nodule on the minor fissure, 8-165, likely representing intrapulmonary lymph node is unchanged. 06/29/23, 04/20/22, 03/08/21, 09/21/20, 04/19/19. Report Status: Verified Date Reported: JAN 06, 2025 Date Verified: JAN 06, 2025 Induction Coordination Engineer E-Sig:/ES/MARTÍN MCLEOD JR Report: Study: Lung cancer screening CT of the chest. Provided History: Lung cancer screening. Comparison: CT scan of the chest from December 29, 2023 and June 29, 2023 and April 20, 2022. Technique: 1 mm lung algorithm and 3 mm soft tissue algorithm axial reconstructions from the lung apices through the lung bases without the administration of intravenous contrast as per standard department protocol for lung cancer screening. Subsequently, sagittal and coronal reformats were generated. MIP images also provided and reviewed. Secondary computer-aided detection with post-processing from [email or web address] is used. The lack of intravenous contrast inherently limits the evaluation of hilar structures, vascular structures, and abnormal enhancement patterns. Lower than standard dose was utilized limiting sensitivity for fine parenchymal detail. Dose Parameters: CTDI(vol): 2.8 mGy. DLP: 113.3 mGy*cm. Findings: Lungs: Emphysema: Mild centrilobular and paraseptal emphysematous changes with associated scattered parenchymal scarring is unchanged. Parenchymal scarring most pronounced at the pulmonary apices. Index Nodule: Stable 5.8 mm solid, well-circumscribed juxtapleural left lower lobe pulmonary nodule, 8-338. Other Nodules: 5.0 mm solid right upper lobe well-circumscribed ovoid pulmonary nodule on the minor fissure, 8-157, likely representing intrapulmonary lymph node is unchanged. Stable 4.3 mm solid, ovoid, well-circumscribed, juxtapleural left upper lobe pulmonary nodule, 8-235. Lungs/airway findings: No acute pulmonary process or pleural effusion is identified. Heart, mediastinum and lymph nodes: The heart size is normal. No pericardial effusion identified. Normal caliber thoracic aorta. No mediastinal or hilar lymphadenopathy by size criteria. No axillary lymphadenopathy by size criteria. Normal caliber pulmonary arteries. Visualized coronary artery calcifications: Atherosclerotic changes of the aorta and coronary arteries. Upper abdomen: Hepatomegaly to the visualized liver is again seen with diffuse hepatic steatotic changes again seen. Bones and soft tissues: Normal age-related degenerative changes present. No acute bony abnormality identified. No suspicious bone lesions identified. Other findings: None. Impression: No significant interval change or new abnormality, as described above. Lung-RADS Assessment: Category 2, benign appearance or behavior. Recommendation: Continue annual screening with lung cancer screening CT in 12 months. Other Significant Findings and Recommendations: None. Primary Diagnostic Code: No immediate attention required Secondary Diagnostic Codes: LUNGRADS 2: BENIGN APPEARANCE OR BEHAVIOR Primary Interpreting Staff: MARTÍN MCLEOD JR, Radiologist (Induction Coordination Engineer) /EALaura MCLEOD,EDWARD A JR [facility] Nov 10, 2024 10:53 AM CHEST (2 VIEWS): TODD JORGENSEN [id number] -[id number] M Exm Date: NOV 10, 2024@10:53 Req Phys: PHILIP KESSLER Pat Loc: CWM/NO/SICK CALL PA (Req'g Loc Img Loc: [facility]/BUILDING 1 Service: [facility] [address] (Case [id number] COMPLETE) CHEST (2 VIEWS) (RAD Detailed) CPT:61961 Reason for Study: cough, left rales Clinical History: Report Status: Verified Date Reported: NOV 10, 2024 Date Verified: NOV 10, 2024 Induction Coordination Engineer E-Sig:/ES/MARTÍN MCLEOD JR Report: Study: PA and [...] Primary Interpreting Staff: MARTÍN MCLEOD JR, Radiologist (Induction Coordination Engineer) /MARTÍN STERLING JR [facility] Encounter Notes: All associated encounter notes This section contains the clinical notes associated to the Encounter. Date/Time Encounter Note(s) Provider Source Dec 08, 2024 03:52 PM CLERICAL NOTE: LOCAL TITLE: APPOINTMENT NO SHOW STANDARD TITLE: CLERICAL NOTE DATE OF NOTE: DEC 08, 2024@15:52 ENTRY DATE: DEC 08, 2024@15:52:57 AUTHOR: KAREN ANGUIANO COSIGNER: URGENCY: STATUS: COMPLETED Patient Name: TODD JORGENSEN Patient SSN: [id number] Date and time of Appointment No show : 12/08/24 15:30 PATIENT PHONE - PHONE NUMBER [CELLULAR] - Patient's medical record was reviewed. Follow-up actions were determined and initiated: Please check/complete as applies: [X]Telephoned Directly [ ]Re-scheduled for next available appt [ ]Sent a N0-show letter ( must call for appointment) [ ]Other (Emergent/Overbook, etc.): Additional Comments: TW outreached the at 1545 as they had not yet presented for scheduled appointment. TW left a discreet VM with contact information referencing todays appointment and encouraged to return call at their convenience to r/s. Future Clinic Visits 01/06/2025 14:00 [facility] PACT 7 PROGRAM ELIGIBILITY SPECIALIST 01/06/2025 14:45 CWM/NO/CAT SCAN /es/ KAREN ANGUIANO PSYD CLINICAL PSYCHOLOGIST - [facility] Signed: 12/08/2024 15:53 KAREN ANGUIANO [facility] [place] [facility]
--- OUTSIDE RECORDS SUMMARY | 2024-12-19 11:00 | XMS_ITS | Encounter Summary ---
Author Name [facility] [place] [facility] [place] Organization [facility] [facility] [place] Address [address] [place] [address] Care Team Providers Care Art Class Model Name Role Phone ZANE CAO Primary Care [...] E HEALTH PLAN [place] [facility] Oct 09, [id number] HUGEL,DARRICK HAEL PATIENT BCBS [place] HIGH DEDUCTIBL E HEALTH PLAN [place] [facility] Oct 09, [id number] HUGEL,DARRICK HAEL PATIENT [place] OF [place] PREFERRED PROVIDER ORGANIZAT ION (PPO) [facility] [place] [facility] [employer] Oct 09, [id number] [phone] HUGEL,DARRICK HAEL PATIENT [place] PRESCRIPT ION BCBS [facility] [facility] Oct 12, 2022 [id number] HUGEL,DARRICK KEENE PATIENT [place] PRESCRIPT ION [place] [facility] Oct 09, 2022 [id number] [id number] HUGEL,DARRICK KEENE PATIENT [place] ([id number]) PRESCRIPT ION [facility] Oct 12, 2022 [id number] [phone] HUGEL,DARRICK HAEL PATIENT [employer] PRESCRIPT ION [facility] [place] [facility] Nov 06, 2020 [id number] HUGEL,DARRICK HAEL PATIENT [employer] PRESCRIPT ION [facility] [place] [facility] [employer] Nov 06, 2020 [id number] HUGEL,DARRICK HAEL PATIENT [employer] [employer] PRESCRIPT ION [place] Nov 06, 2020 [id number] [phone] HUGEL,DARRICK KEENE PATIENT Selected Encounter This section includes the information on record at [place] for the Encounter. Date/Time Encounter Type Encounter Description Reason Provider Source Dec 19, 2024 04:00 PM PSYTX W PT 45 MINUTES [facility] - IND ICD-10-CM F33.1 Major depressive disorder, recurrent, moderate ANNMARIEBINU Rocco Encounter Template Text not used by [place] Assessments - Encounter Diagnoses This section includes the primary and secondary diagnoses documented for the Encounter. Date/Time Primary/Secondary Diagnosis Diagnosis Name Provider Source Dec 22, 2024 03:58 PM PRIMARY Major depressive disorder, recurrent, moderate ANNMARIEAMPARO BURRIS [facility] [place] [facility] Dec 22, 2024 03:58 PM SECONDARY Attention-deficit hyperactivity disorder, combined type AMPARO ANGUIANO [facility] [place] [facility] Dec 22, 2024 03:58 PM SECONDARY Post-traumatic stress disorder, chronic ANNMARIEAMPARO [facility] [place] [facility] Plan of Treatment: Future Appointments (+ 6 months) and Future Tests (+/- 45 days) The Plan of Treatment section includes future care activities for the [facility] [place] [facility] This section includes future appointments and future orders which are active, pending or scheduled. Future Appointments This section includes appointments that were scheduled to occur 6 months from the date of the Encounter, up to a maximum of 20 appointments. The data comes from all [facility] facilities. Appointment Date/Time Appointment Type Appointme nt Facility Name Dec 26, 2024 03:00 PM AMBULATORY - PSYCHIATRY [facility] [place] [facility] Jan 06, 2025 02:00 PM AMBULATORY - MEDICINE [facility] [place] [facility] Jan 06, 2025 02:45 PM AMBULATORY - NONE [facility] [place] [facility] Jan 09, 2025 03:00 PM AMBULATORY - PSYCHIATRY [facility] [place] [facility] Jan 23, 2025 03:00 PM AMBULATORY - PSYCHIATRY [facility] [place] [facility] Feb 06, 2025 03:00 PM AMBULATORY - PSYCHIATRY [facility] [place] [facility] February 20, 2025 03:00 PM AMBULATORY - PSYCHIATRY [facility] [place] [facility] March 10, 2025 11:00 AM AMBULATORY - PSYCHIATRY [facility] [place] [facility] Mar 21, 2025 01:00 PM AMBULATORY - PSYCHIATRY [facility] [place] [facility] Apr 03, 2025 03:00 PM AMBULATORY - PSYCHIATRY [facility] [place] [facility] Apr 17, 2025 03:00 PM AMBULATORY - PSYCHIATRY [facility] [place] [facility] May 10, 2025 03:00 PM AMBULATORY - PSYCHIATRY [facility] [place] [facility] May 29, 2025 03:00 PM AMBULATORY - PSYCHIATRY [facility] [place] [facility] Jun 16, 2025 03:00 PM AMBULATORY - PSYCHIATRY [place] [facility] [place] [facility] Active, Pending, and Scheduled Orders This section includes a listing of several types of active, pending, and scheduled orders, including clinic medications orders, diagnostic test orders, procedure orders and consult orders; where the start date of the order is 45 days before the date of the Encounter or 45 days after the date of theEncounter. The data comes from all [place] treatment facilities. Test Date/Time Test Type Test Details Facility Name Jan 19, 2025 12:00 AM Laboratory - Chemistry Order TOTAL TESTOSTERONE BLOOD (SST-SERUM) SP [facility] Lab Results: +/- 30 days of the encounter This section includes the Chemistry and Hematology Lab Results on record with [place] for the patient. Radiology Reports and Pathology Reports are provided separately, in subsequent sections. Lab Results This section contains the Chemistry/Hematology Results that were resulted 30 days before or 30 daysafter the date of the Encounter. Date/Time Source Result Type Result - Unit Interpretation Reference Range Specimen Type Comment Jan 05, 2025 02:02 PM [facility] PT & INR (PROTIME) PLASMA Specimen Type: PLASMA No comment entered. Ordering Provider: ZANE CAO Report Released Date/Time: Dec 21, 2024 03:37 PM Reporting Lab: [address] [address] Performing Lab: [address] [address] INR 1.0 PROTIME 10.8 s 10.0-13.1 Jan 05, 2025 02:02 PM [facility] CERULOPLASMIN SERUM Specimen Type: SERUM No comment entered. Ordering Provider: ZANE CAO Report Released Date/Time: Dec 21, 2024 03:37 PM Reporting Lab: [facility] [address] [facility] [address] Performing Lab: [facility] [address] [facility] [address] CERULOPLASMIN 27 mg/dL 20-60 Jan 05, 2025 02:02 PM [facility] HEPATITIS B SURFACE ANTIBODY (HBsAb)-WH SERUM Specimen Type: SERUM No comment entered. Ordering Provider: ZANE CAO Report Released Date/Time: Dec 21, 2024 03:37 PM Reporting Lab: [address] [address] Performing Lab: [facility] Jan 05, 2025 02:02 PM [facility] HEPATITIS B SURFACE ANTIGEN (HBsAg)-WH SERUM Specimen Type: SERUM Comment: Hep B Surf Ag: Negative for HBsAg. Other markers of Hepatitis B virus are needed to ascertain Hepatitis B infection status. Ordering Provider: ZANE CAO Report Released Date/Time: Dec 21, 2024 03:37 PM Reporting Lab: [address] [address] Performing Lab: [facility] [address] [facility] [address] HBsAg Non Reactive Non Reactive Jan 05, 2025 02:02 PM [facility] TOSHA SCREEN/TITER SERUM Specimen Type: SERUM No comment entered. Ordering Provider: ZANE CAO Report Released Date/Time: Dec 21, 2024 03:37 PM Reporting Lab: [address] [address] Performing Lab: [facility] [address] [facility] [address] TOSHA SCREEN NEG NEG <1:40 Jan 05, 2025 02:02 PM [facility] HEPATITIS A ANTIBODY (IGG) SERUM Specimen Typ e: SERUM Comment: Hepatitis A IgG: A 'Reactive' result indicates previous exposure to Hepatitis A virus through infection or vaccination. Ordering Provider: ZANE CAO Report Released Date/Time: Dec 21, 2024 03:37 PM Reporting Lab: [address] [address] Performing Lab: [facility] [address] [facility] [address] HEPATITIS A ANTIBODY (IGG) REACTIVE Non Reactive Jan 05, 2025 02:02 PM [facility] PTH INTACT SERUM Specimen Type: SERUM No comment entered. Ordering Provider: ZANE CAO Report Released Date/Time: Dec 21, 2024 03:37 PM Reporting Lab: [address] [address] Performing Lab: [address] [address] PTH INTACT 57.0 pg/mL 8.7-77.1 Jan 05, 2025 02:02 PM [facility] TESTOSTERONE, TOTAL (WHV) SERUM Specimen Type : SERUM No comment entered. Ordering Provider: ZANE CAO Report Released Date/Time: Dec 21, 2024 03:37 PM Reporting Lab: [facility] [address] [facility] [address] Performing Lab: [facility] [address] [facility] [address] TESTOSTERONE, TOTAL (V) 147.23 ng/dL L 2 20.00-892.00 Jan 05, 2025 02:02 PM [facility] FSH SERUM Specimen Type: SERUM No comment entered. Ordering Provider: ZANE CAO Report Released Date/Time: Dec 21, 2024 03:37 PM Reporting Lab: [facility] [address] [address] Performing Lab: [facility] [address] [facility] [address] FSH 3.49 1-19 Jan 05, 2025 02:02 PM [facility] LH SERUM Specimen Type: SERUM Comment: PROLACTIN female range:PREMENOPAUSAL 3-27, POSTMENOPAUSAL 2-20 Male range changed from 2-14 to 3-20 on 01/03/13. Ordering Provider: ZANE CAO Report Released Date/Time: Dec 21, 2024 03:37 PM Reporting Lab: [facility] [address] [facility] [address] Performing Lab: [facility] [address] [facility] [address] LH 2.21 1-9 Jan 05, 2025 02:02 PM [facility] PROLACTIN SERUM Specimen Type: SERUM Comment: PROLACTIN female range:PREMENOPAUSAL 3-27, POSTMENOPAUSAL 2-20 Male range changed from 2-14 to 3-20 on 01/03/13. Ordering Provider: ZANE CAO Report Released Date/Time: Dec 21, 2024 03:37 PM Reporting Lab: [facility] [place] [facility] [address] [facility] [address] Performing Lab: [facility] [place] [facility] [address] [facility] [address] PROLACTIN 10.73 ng/mL 3-20 Jan 05, 2025 02:02 PM [facility] [place] [facility] HEPATITIS C ANTIBODY (HCV)-ARC SERUM Specimen Type: SERUM Comment: Hep C Ab: No HCV antibody detected. If recent infection is suspected or other evidence suggests HCV infection, consider HCV nucleic acid testing Ordering Provider: ZANE CAO Report Released Date/Time: Dec 21, 2024 03:37 PM Reporting Lab: [facility] [place] [place] [facility] [address] [facility] [address] Performing Lab: [facility] TRN [facility] [address] [address] HEPATITIS C ANTIBODY NON-REACTIVE NON-RE ACTIVE Jan 05, 2025 02:02 PM [facility] FERRITIN SERUM Specimen Type: SERUM No comment entered. Ordering Provider: ZANE CAO Report Released Date/Time: Dec 21, 2024 03:37 PM Reporting Lab: [facility] [place] [facility] [address] [facility] [address] Performing Lab: [facility]N [place] [address] [address] FERRITIN 229 ng/mL 20-300 Jan 05, 2025 02:02 PM [facility] PSA SERUM Specimen Type: SERUM No comment entered. Ordering Provider: ZANE CAO Report Released Date/Time: Dec 21, 2024 03:37 PM Reporting Lab: [facility] [place] [facility] [address] [facility] [address] Performing Lab: [place] [facility] [facility] [address] [facility] [address] PSA 0.59 ng/mL 0.00-4.00 Jan 05, 2025 02:02 PM [facility] TRN [facility] TSH SERUM Specimen Type: SERUM No comment entered. Ordering Provider: ZANE CAO Report Released Date/Time: Dec 21, 2024 03:37 PM Reporting Lab: [facility]ITALRENCOM[facility] [address] [facility] [address] Performing Lab: [facility]RL [facility]N [facility] [address] [facility] [address] TSH 0.74 u[IU]/mL 0.35-5.00 Jan 05, 2025 02:02 PM [facility] IRON & TIBC PANEL SERUM Specimen Type: SERUM No comment entered. Ordering Provider: ZANE CAO Report Released Date/Time: Dec 21, 2024 03:37 PM Reporting Lab: [facility]ITALRENCOM[facility]ENTERUSEBLY[facility] [address] [facility] [address] Performing Lab: [facility]ITALRENCOM[facility] CENTERUSETS [address] [address] TIBC 281 ug/dL 204-475 IRON 85 ug/dL 40-160 Transferrin Saturation 30.2 20.0-50.0 Transferrin (TRF) 213 mg/dL 200-360 Jan 05, 2025 02:02 PM [facility] ALBUMIN SERUM Specimen Type: SERUM No comment entered. Ordering Provider: ZANE ACO Report Released Date/Time: Dec 21, 2024 03:37 PM Reporting Lab: [facility]ITALRENCOM[facility]ENTERUSEBL[facility] [address] [facility] [address] Performing Lab: [facility]ENTERUSE[address] [address] ALBUMIN 4.1 g/dL 3.5-5.0 Jan 05, 2025 02:02 PM [facility] LIVER FUNCTION SERUM Specimen Type: SERUM No comment entered. Ordering Provider: ZANE CAO Report Released Date/Time: Dec 21, 2024 03:37 PM Reporting Lab: [facility]ITALRENCOM[facility]ENTERUS[facility] [address] [facility] [address] Performing Lab: [facility] [address] [address] PROTEIN,TOTAL 7.9 g/dL 6.0-8.3 ALBUMIN 4.1 g/dL 3.5-5.0 ALKALINE PHOSPHATASE 72 U/L 40-150 AST 18 U/L 5-34 ALT 27 U/L BILIRUBIN, TOTAL 0.3 mg/dL 0.2-1.2 Jan 05, 2025 02:02 PM [facility] LIPID PANEL, NON FASTING SERUM Specimen Type: SERUM No comment entered. Ordering Provider: ZANE CAO Report Released Date/Time: Dec 21, 2024 03:37 PM Reporting Lab: [facility] [address] [facility] [address] Performing Lab: [address] [address] CHOLESTEROL 251 mg/dL H TRIGLYCERIDE 254 mg/dL H 0-150 LDL calculated 157 mg/dL H 0-129 CHOL/HDL 5.8 HDL CHOLESTEROL 43 mg/dL 40-60 Social History: Smoking Status (Most current) and Tobacco Use (All prior to encounter date) This section includes the most current, and the historical, smoking and tobacco- related health factors from the [place] facility where the Encounter took place. Current Smoking Status This section includes the most current smoking, or tobacco-related health factor, from the [place] facility where the Encounter took place. Date/Time Current Smoking Status Comment Facil ity Jul 07, 2024 03:00 PM DE-TOBACCO FORMER USER [facility] Tobacco Use History This section includes a history of the smoking, or tobacco-related health factors, that were collected on or before the date of the Encounter. The data comes from the [place] facility where the Encounter took place. Date/Time Smoking Status/Tobacco Use Comment F acility Jul 07, 2024 03:00 PM DE-TOBACCO QUIT 5 TO < 15 YRS [facility] Jun 01, 2023 03:30 PM VA-TOBACCO FORMER USER [facility] Jun 01, 2023 03:30 PM DE-TOBACCO QUIT 5 TO < 15 YRS [facility] Radiology Reports: +/- 30 days of [...] the Encounter. The data comes from all [place] treatment facilities. Date/Time Radiology Report Provider Source Jan 06, 2025 02:15 PM LDCT LUNG CANCER SCREENING: TODD JORGENSEN [id number] [phone] M Exm Date: JAN 06, 2025@14:15 Req Phys: ZANE CAO Loc: [facility] CHART CONSULT (Req'g L Img Loc: [facility]/CT Service: Unknown [facility] [place] [address] (Case [id number] COMPLETE) LDCT LUNG CANCER SCREENING (CT Detailed) CPT:95028 Reason for Study: Lung Cancer Screen Clinical [...] 06, 2025 Date Verified: JAN 06, 2025 Insurance Premium Auditor E-Sig:/ES/MARTÍN MCLEOD JR Report: Study: Lung cancer [...] reviewed. Secondary computer-aided detection with post-processing from [employer] is used. The lack of intravenous contrast [...] Primary Interpreting Staff: MARTÍN MCLEOD JR, Radiologist (Insurance Premium Auditor) /MARTÍN STERLING JR [facility] Encounter Notes: All associated encounter notes This section contains the clinical notes associated to the Encounter. Date/Time Encounter Note(s) Provider Source Dec 19, 2024 04:00 PM PSYCHOLOGY NOTE: LOCAL TITLE: PSYCHOLOGY NOTE STANDARD TITLE: PSYCHOLOGY NOTE DATE OF NOTE: DEC 19, 2024@16:00 ENTRY DATE: DEC 19, 2024@16:32:53 AUTHOR: KAREN ANGUIANO COSIGNER: URGENCY: STATUS: COMPLETED [place] identified with 2 identifiers: [X] Full Name [X] Visual recognition [ ] VA ID Card Procedure: Individual psychotherapy Date/time: 12/19/24; [id number] Session: 2 PROBLEM: PTSD, depressive sx, recent psychosocial stressors Goals: provide bridge support while [place] awaits therapist assignment Progress: describes an upcoming stressor of having to share an Air BnB with his ex- (with whom he has not had contact in 10+ years) in addition to other family members for a planned trip to [place] to celebrate their grandchildrens' first birthdays. While normalizing this stressor given their acrimonious history, TW engaged [place] in reframing, eliciting perspectives that he plans to keep in mind, and similar strategies to support his ability to manage this situation effectively, to which he appeared receptive and generally confident in his ability to be successful. [place] and TW collaboratively discussed his recent promotion and expansion of job opportunities, which, while stressful in the short-term, he feels will be positive going forward. Dx: MDD, recurrent PTSD ADHD, per chart [...] to internal stimuli Insight: fair Judgment: fair [place] did not endorse current SI/HI; did not appear to be in any acute distress Ongoing Plan: Next appt with this promotion writer scheduled for 12/29/24. [place] encouraged to continue participation in psychiatry services. /tanmay/ KAREN ANGUIANO PSYD CLINICAL PSYCHOLOGIST - MENTAL [facility] CLINIC Signed: 12/22/2024 15:58 KAREN ANGUIANO [facility]
--- OUTSIDE RECORDS SUMMARY | 2024-12-26 10:00 | XMS_ITS | Encounter Summary ---
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 Oct 09, [id number] HUGEL,DARRICK HAEL PATIENT [place] PRESCRIPT ION BCBS CAREM ARK [facility] Oct 12, 2022 [id number] HUGEL,DARRICK HAMARCO ANTONIO PATIENT [place] PRESCRIPT ION [place] [facility] Oct 09, 2022 [id number] [phone] HUGEL,DARRICK HAMARCO ANTONIO PATIENT CAREMARK ([id number]) PRESCRIPT ION [facility] Oct 12, 2022 [id number] [phone] HUGEL,DARRICK HAEL PATIENT [employer] PRESCRIPT ION [facility] [place] [facility] [employer] Nov 06, 2020 [id number] HUGEL,DARRICK HAEL PATIENT [employer] PRESCRIPT ION [place] Nov 06, 2020 [id number] HUGEL,DARRICK HAEL PATIENT [employer] PRESCRIPT ION [facility] [place] [facility] [employer] Nov 06, 2020 [id number] HUGEL,DARRICK KEENE PATIENT Selected Encounter This section includes the information on record at [place] for the Encounter. Date/Time Encounter Type Encounter Description Reason Provider Source Dec 26, 2024 03:00 PM PSYTX W PT 60 MINUTES [facility] - IND ICD-10-CM F43.12 Post-traumatic stress disorder, chronic BINU FINK M IHE Encounter Template Text not used by [place] Assessments - Encounter Diagnoses This section includes the primary and secondary diagnoses documented for the Encounter. Date/Time Primary/Secondary Diagnosis Diagnosis Name Provider Source Dec 27, 2024 12:50 PM PRIMARY Post-traumatic stress disorder, chronic [facility]ELIZ [facility] [place] [facility] Dec 27, 2024 12:50 PM SECONDARY Attention-deficit hyperactivity disorder, combined type [facility] Plan of Treatment: Future Appointments (+ 6 months) and Future Tests (+/- 45 days) The Plan of Treatment section includes future care activities for the patient from all [place] treatmentfacilities. This section includes future appointments and future orders which are active, pending or scheduled. Future Appointments This section includes appointments that were scheduled to occur 6 months from the date of the Encounter, up to a maximum of 20 appointments. The data comes from all [place] treatment facilities. Appointment Date/Time Appointment Type Appointme nt Facility Name Jan 06, 2025 02:00 PM AMBULATORY [facility] MEDICINE [facility] [place] [facility] Jan 06, 2025 02:45 PM AMBULATORY - NONE [facility] [place] [facility] Jan 09, 2025 03:00 PM AMBULATORY - PSYCHIATRY [facility] [place] [facility] Jan 23, 2025 03:00 PM AMBULATORY - PSYCHIATRY [facility] [place] [facility] Feb 06, 2025 03:00 PM AMBULATORY - PSYCHIATRY [facility] [place] [facility] February 20, 2025 03:00 PM AMBULATORY - PSYCHIATRY [facility] [place] [facility] March 10, 2025 11:00 AM AMBULATORY - PSYCHIATRY [place] [facility] [place] [facility] Mar 21, 2025 01:00 PM AMBULATORY - PSYCHIATRY [facility] [place] [facility] Apr 03, 2025 03:00 PM AMBULATORY - PSYCHIATRY [facility] [place] [facility] Apr 17, 2025 03:00 PM AMBULATORY - PSYCHIATRY [facility] [place] [facility] May 10, 2025 03:00 PM AMBULATORY - PSYCHIATRY [place] [facility] [place] [facility] May 29, 2025 03:00 PM AMBULATORY - PSYCHIATRY [place] [facility] [place] [facility] Jun 16, 2025 03:00 PM AMBULATORY - PSYCHIATRY [place] [facility] [place] [facility] Jun 23, 2025 03:00 PM AMBULATORY - PSYCHIATRY [place] [facility] [place] [facility] Active, Pending, and Scheduled Orders This section includes a listing of several types of active, pending, and scheduled orders, including clinic medications orders, diagnostic test orders, procedure orders and consult orders; where the start date of the order is 45 days before the date of the Encounter or 45 days after the date of theEncounter. The data comes from all [place] treatment [facility]. Test Date/Time Test Type Test Details Facility Name Jan 19, 2025 12:00 AM Laboratory - Chemistry Order TOTAL TESTOSTERONE BLOOD (SST-SERUM) [facility] [place] [facility] Lab Results: +/- 30 days of the encounter This section includes the Chemistry and Hematology Lab Results on record with [place] for the patient. Radiology Reports and Pathology Reports are provided separately, in subsequent sections. Lab Results This section contains the Chemistry/Hematology Results that were resulted 30 days before or 30 daysafter the date of the Encounter. Date/Time Source Result Type Result - Unit Interpretation Reference Range Specimen Type Comment Jan 05, 2025 02:02 PM [facility] PT & INR (PROTIME) PLASMA Specimen Type: PLASMA No comment entered. Ordering Provider: ZANE CAO Report Released Date/Time: Dec 21, 2024 03:37 PM Reporting Lab: [address] [address] Performing Lab: [address] [address] INR 1.0 PROTIME 10.8 s 10.0-13.1 Jan 05, 2025 02:02 PM [facility] CERULOPLASMIN SERUM Specimen Type: SERUM No comment entered. Ordering Provider: ZANE CAO Report Released Date/Time: Dec 21, 2024 03:37 PM Reporting Lab: [address] [address] Performing Lab: [facility] [address] [facility] [address] CERULOPLASMIN 27 mg/dL 20-60 Jan 05, 2025 02:02 PM [facility] HEPATITIS B SURFACE ANTIBODY (HBsAb)- SERUM Specimen Type: SERUM No comment entered. Ordering Provider: ZANE CAO Report Released Date/Time: Dec 21, 2024 03:37 PM Reporting Lab: [address] [address] Performing Lab: [facility] Jan 05, 2025 02:02 PM [facility] HEPATITIS B SURFACE ANTIGEN (HBsAg)- SERUM Specimen Type: SERUM Comment: Hep B Surf Ag: Negative for HBsAg. Other markers of Hepatitis B virus are needed to ascertain Hepatitis B infection status. Ordering Provider: ZANE CAO Report Released Date/Time: Dec 21, 2024 03:37 PM Reporting Lab: [facility] [address] [facility] [address] Performing Lab: [facility] [address] [facility] [address] HBsAg Non Reactive Non Reactive Jan 05, 2025 02:02 PM [facility] TOSHA SCREEN/TITER SERUM Specimen Type: SERUM No comment entered. Ordering Provider: ZANE CAO Report Released Date/Time: Dec 21, 2024 03:37 PM Reporting Lab: [facility] [address] [facility] [address] Performing Lab: [facility] [address] [facility] [address] TOSHA SCREEN NEG NEG <1:40 Jan 05, 2025 02:02 PM [facility] HEPATITIS A ANTIBODY (IGG) SERUM Specimen Typ e: SERUM Comment: Hepatitis A IgG: A 'Reactive' result indicates previous exposure to Hepatitis A virus through infection or vaccination. Ordering Provider: ZANE CAO Report Released Date/Time: Dec 21, 2024 03:37 PM Reporting Lab: [facility] [address] [facility] [address] Performing Lab: [facility] [address] [address] HEPATITIS A ANTIBODY (IGG) REACTIVE Non Reactive Jan 05, 2025 02:02 PM [facility] PTH INTACT SERUM Specimen Type: SERUM No comment entered. Ordering Provider: ZANE CAO Report Released Date/Time: Dec 21, 2024 03:37 PM Reporting Lab: [facility] [address] [facility] [address] Performing Lab: [facility] [address] [address] PTH INTACT 57.0 pg/mL 8.7-77.1 Jan 05, 2025 02:02 PM [facility] TESTOSTERONE, TOTAL (WHV) SERUM Specimen Type : SERUM No comment entered. Ordering Provider: ZANE CAO Report Released Date/Time: Dec 21, 2024 03:37 PM Reporting Lab: [facility] [place] [facility] [address] [facility] [address] Performing Lab: [facility] [address] [facility] [address] TESTOSTERONE, TOTAL (V) 147.23 ng/dL L 2 20.00-892.00 Jan 05, 2025 02:02 PM [facility] LH SERUM Specimen Type: SERUM Comment: PROLACTIN female range:PREMENOPAUSAL 3-27, POSTMENOPAUSAL 2-20 Male range changed from 2-14 to 3-20 on 01/03/13. Ordering Provider: ZANE CAO Report Released Date/Time: Dec 21, 2024 03:37 PM Reporting Lab: [facility] [address] [facility] [address] Performing Lab: [facility] [address] [facility] [address] LH 2.21 1-9 Jan 05, 2025 02:02 PM [facility] FSH SERUM Specimen Type: SERUM No comment entered. Ordering Provider: ZANE CAO Report Released Date/Time: Dec 21, 2024 03:37 PM Reporting Lab: [facility] [address] [facility] [address] Performing Lab: [facility] [address] [facility] [address] FSH 3.49 1-19 Jan 05, 2025 02:02 PM [facility] PROLACTIN SERUM Specimen Type: SERUM Comment: PROLACTIN female range:PREMENOPAUSAL 3-27, POSTMENOPAUSAL 2-20 Male range changed from 2-14 to 3-20 on 01/03/13. Ordering Provider: ZANE CAO Report Released Date/Time: Dec 21, 2024 03:37 PM Reporting Lab: [facility] [address] [facility] [address] Performing Lab: [facility] [address] [facility] [address] PROLACTIN 10.73 ng/mL 3-20 Jan 05, 2025 02:02 PM [facility] HEPATITIS C ANTIBODY (HCV)-ARC SERUM Specimen Type: SERUM Comment: Hep C Ab: No HCV antibody detected. If recent infection is suspected or other evidence suggests HCV infection, consider HCV nucleic acid testing Ordering Provider: ZANE CAO Report Released Date/Time: Dec 21, 2024 03:37 PM Reporting Lab: [facility] [address] [facility] [address] Performing Lab: [facility] [address] [facility] [address] HEPATITIS C ANTIBODY NON-REACTIVE NON-RE ACTIVE Jan 05, 2025 02:02 PM [facility] FERRITIN SERUM Specimen Type: SERUM No comment entered. Ordering Provider: ZANE CAO Report Released Date/Time: Dec 21, 2024 03:37 PM Reporting Lab: [facility] [address] [facility] [address] Performing Lab: [facility] [address] [facility] [address] FERRITIN 229 ng/mL 20-300 Jan 05, 2025 02:02 PM [facility] PSA SERUM Specimen Type: SERUM No comment entered. Ordering Provider: ZANE CAO Report Released Date/Time: Dec 21, 2024 03:37 PM Reporting Lab: [facility] [place] [facility] [address] [facility] [address] Performing Lab: [facility] [address] [facility] [address] PSA 0.59 ng/mL 0.00-4.00 Jan 05, 2025 02:02 PM [facility] TSH SERUM Specimen Type: SERUM No comment entered. Ordering Provider: ZANE CAO Report Released Date/Time: Dec 21, 2024 03:37 PM Reporting Lab: [facility] [address] [facility] [address] Performing Lab: [facility] [address] [facility] [address] TSH 0.74 u[IU]/mL 0.35-5.00 Jan 05, 2025 02:02 PM [facility] IRON & TIBC PANEL SERUM Specimen Type: SERUM No comment entered. Ordering Provider: ZANE CAO Report Released Date/Time: Dec 21, 2024 03:37 PM Reporting Lab: [facility] [address] [facility] [address] Performing Lab: [facility] [address] [address] TIBC 281 ug/dL 204-475 IRON 85 ug/dL 40-160 Transferrin Saturation 30.2 20.0-50.0 Transferrin (TRF) 213 mg/dL 200-360 Jan 05, 2025 02:02 PM [facility] LIVER FUNCTION SERUM Specimen Type: SERUM No comment entered. Ordering Provider: ZANE CAO Report Released Date/Time: Dec 21, 2024 03:37 PM Reporting Lab: [address] [address] Performing Lab: [address] [address] PROTEIN,TOTAL 7.9 g/dL 6.0-8.3 ALBUMIN 4.1 g/dL 3.5-5.0 ALKALINE PHOSPHATASE 72 U/L 40-150 AST 18 U/L 5-34 ALT 27 U/L BILIRUBIN, TOTAL 0.3 mg/dL 0.2-1.2 Jan 05, 2025 02:02 PM [facility] ALBUMIN SERUM Specimen Type: SERUM No comment entered. Ordering Provider: ZANE CAO Report Released Date/Time: Dec 21, 2024 03:37 PM Reporting Lab: [facility] [address] [facility] [address] Performing Lab: [address] [address] ALBUMIN 4.1 g/dL 3.5-5.0 Jan 05, 2025 02:02 PM [facility] LIPID PANEL, NON FASTING SERUM Specimen Type: SERUM No comment entered. Ordering Provider: ZANE CAO Report Released Date/Time: Dec 21, 2024 03:37 PM Reporting Lab: [facility] [address] [facility] [address] Performing Lab: [facility] [address] [facility] [address] CHOLESTEROL 251 mg/dL H TRIGLYCERIDE 254 mg/dL H 0-150 LDL calculated 157 mg/dL H 0-129 CHOL/HDL 5.8 HDL CHOLESTEROL 43 mg/dL 40-60 Social History: Smoking Status (Most current) and Tobacco Use (All prior to encounter date) This section includes the most current, and the historical, smoking and tobacco- related health factors from the [place] facility where the Encounter took place. Current Smoking Status This section includes the most current smoking, or tobacco-related health factor, from the [place] facility where the Encounter took place. Date/Time Current Smoking Status Comment Facil ity Jul 07, 2024 03:00 PM [place]-TOBACCO FORMER USER [facility] Tobacco Use History This section includes a history of the smoking, or tobacco-related health factors, that were collected on or before the date of the Encounter. The data comes from the [place] facility where the Encounter took place. Date/Time Smoking Status/Tobacco Use Comment F acility Jul 07, 2024 03:00 PM [place]-TOBACCO QUIT 5 TO < 15 YRS [facility] Jun 01, 2023 03:30 PM VA-TOBACCO FORMER USER [facility] Jun 01, 2023 03:30 PM [place]-TOBACCO QUIT 5 TO < 15 YRS [facility] Radiology Reports: +/- 30 days of [...] the Encounter. The data comes from all [place] treatment facilities. Date/Time Radiology Report Provider Source Jan 06, 2025 02:15 PM LDCT LUNG CANCER SCREENING: TODD JORGENSEN [id number] -[phone] M Exm Date: JAN 06, 2025@14:15 Req Phys: ZANE CAO Loc: [facility] LCS CHART CONSULT (Req'g L Img Loc: [place] Service: Unknown [place] [facility] [place] [address] (Case [id number] COMPLETE) LDCT LUNG CANCER SCREENING (CT Detailed) CPT:20635 Reason for Study: Lung Cancer Screen Clinical History: 28 TPY, 2011 Comparison: LDCT 6 m f/u 12/29/23 [...] 06, 2025 Date Verified: JAN 06, 2025 Karate Instructor E-Sig:/ES/MARTÍN MCLEOD JR Report: Study: Lung cancer [...] reviewed. Secondary computer-aided detection with post-processing from [employer] is used. The lack of intravenous contrast [...] BENIGN APPEARANCE OR BEHAVIOR Primary Interpreting Staff: MATRÍN MCLEOD JR, Radiologist (Karate Instructor) /MARTÍN STERLING JR [facility] Encounter Notes: All associated encounter notes This section contains the clinical notes associated to the Encounter. Date/Time Encounter Note(s) Provider Source Dec 26, 2024 04:28 PM PSYCHOLOGY CONSULT : LOCAL TITLE: CONSULT REPORT/MENTAL HEALTH/PSYCHOLOGY STANDARD TITLE: PSYCHOLOGY CONSULT DATE OF NOTE: DEC 26, 2024@16:28 ENTRY DATE: DEC 26, 2024@16:28:55 AUTHOR: RONAN VELIZ COSIGNER: FARHEEN FINK URGENCY: STATUS: COMPLETED This case is supervised by Dr. Farheen Fink, staff psychologist in the [facility]. Diagnosis, treatment plan, and response to care are reviewed on an ongoing basis in weekly individual supervision meetings. This was a 60 minute intake session to initiate individual psychotherapy for PTSD and ADHD. The [place] was oriented to clinic proceedures and limits of confidentiality. This provider recently completed an extensive neuropsychological evaluation with this on 08/31/2024. Please see that report for full psychosocial history. DATA: Portions of the appointment involved stream of conciousness process sharing by the , combined with feedback, validation and reflections by the provider. We oriented to treatment, with the Vetern understanding and agreeing that this course of therapy was to be focused primarily on trauma, and pauliee may look differnt that previous episodes of care. The provider engaged in present-focused interpersonal process with the [place], exploring emotions, comfort in the room, vulnerability levels, etc. The said that it has historically been harder for him to be vulnerable with men. ASSESSMENT: The [place] was on time to the appointment and was engaged. Eye contact was minimal. The [place] was noted to laugh and smile while discussing difficult content. Grooming and dress were WNL. Gross motor function was WNL. Mood was anxious and affect was congruent and varied appropriately. Speech was slightly pressured, and content was tangental, but otherwise was WNL Insight and judgement were intact. There was no evidence of A/VH or thought disorder. SI was denied. Discomfort was evident throughout the session. The appeared to use humor to self-regulate when discussing difficult content. The appears to struggle with conditions of worth established in his upbringing, and was noted to actively defend against threats to worth in various ways. For example, he was noted to frequently speak of being very smart, and compared himself to others (e.g., saying that he was smarter than his teachers growing up). Treatment will likey be centered on psychodyamic and interpersonal process based techniques. Some level of exposure work may be indicated, but it will likely focus on emotional content to help the better appreciate and integrate the impact of his experiences. PLAN: He will meet on a biweekly basis for individual psychotherapy with Dr. Ronan Veliz. Our next appointment will be on 01/09/2025. We will continue refining our goals and developing our theraputic rapport. /tanmay/ RONAN VELIZ, PHD [facility] Post-Doctoral Psychology Trainee Signed: 12/27/2024 12:50 /es/ FARHEEN FINK PSYD CLINICAL PSYCHOLOGIST - MENTAL HEALTH CLINIC Cosigned: 12/28/2024 14:23 RONAN VELIZ [facility]
--- OUTSIDE RECORDS SUMMARY | 2025-01-06 09:00 | XMS_ITS | Encounter Summary ---
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 Oct 09, [id number] HUGEL,DARRICK HAEL PATIENT [place] PRESCRIPT ION BCBS CAREM ARK [facility] Oct 12, 2022 [id number] HUNTERLDARRICK PATIENT [place] PRESCRIPT ION [place] [facility] Oct 09, 2022 [id number] HUNTERLDARRICK PATIENT CAREMARK ([id number]) PRESCRIPT ION [facility] Oct 12, 2022 [id number] HUGEL,DARRICK KEENE PATIENT [employer] BROGATION PRESCRIPT ION [facility] [place] [facility] [employer] Nov 06, 2020 [id number] HUGEL,DARRICK HAMARCO ANTONIO PATIENT [employer] [employer] PRESCRIPT ION [place] Nov 06, 2020 [id number] HUGEL,DARRICK HAMARCO ANTONIO PATIENT [employer] [employer] PRESCRIPT ION [employer] Nov 06, 2020 [id number] HUGEL,DARRICK KEENE PATIENT Selected Encounter This section includes the information on record at [place] for the Encounter. Date/Time Encounter Type Encounter Description Reason Provider Source Jan 06, 2025 02:00 PM OFFICE O/P EST HI 40 MIN PRIMARY CARE/MEDICINE ICD-10-CM R91.8 Other nonspecific abnormal finding of lung field DANIA JUSTIN AM [facility] Encounter Template Text not used by [place] Assessments - Encounter Diagnoses This section includes the primary and secondary diagnoses documented for the Encounter. Date/Time Primary/Secondary Diagnosis Diagnosis Name Provider Source Jan 06, 2025 02:11 PM PRIMARY Other nonspecific abnormal finding of lung field DANIA JUSTIN AM [place] [facility] [place] [facility] Jan 06, 2025 02:11 PM SECONDARY Chronic fatigue, unspecified DANIA JUSTIN AM [place] [facility] [place] [facility] Jan 06, 2025 02:11 PM SECONDARY Fatty (change of) liver, not elsewhere classified DANIA JUSTIN AM [place] [facility] [place] [facility] Jan 06, 2025 02:11 PM SECONDARY Hyperlipidemia, unspecified DANIA JUSTIN AM [place] [facility] [place] [facility] Jan 06, 2025 02:11 PM SECONDARY Hypothyroidism, unspecified KILEY,DANIA AM J [facility] [place] [facility] Jan 06, 2025 02:11 PM SECONDARY Male erectile dysfunction, unspecified KILEY,DANIA AM J [place] [facility] [place] [facility] Plan of Treatment: Future Appointments (+ 6 months) and Future Tests (+/- 45 days) The Plan of Treatment section includes future care activities for the patient from all [place] treatmentfacilities. This section includes future appointments and future orders which are active, pending or scheduled. Future Appointments This section includes appointments that were scheduled to occur 6 months from the date of the Encounter, up to a maximum of 20 appointments. The data comes from all [place] treatment facilities. Appointment Date/Time Appointment Type Appointme nt Facility Name Jan 09, 2025 03:00 PM AMBULATORY - PSYCHIATRY [facility] [place] [facility] Jan 23, 2025 03:00 PM AMBULATORY - PSYCHIATRY [facility] [place] [facility] Feb 06, 2025 03:00 PM AMBULATORY - PSYCHIATRY [facility] [place] [facility] February 20, 2025 03:00 PM AMBULATORY - PSYCHIATRY [facility] [place] [facility] March 10, 2025 11:00 AM AMBULATORY - PSYCHIATRY [facility] [place] [facility] Mar 21, 2025 01:00 PM AMBULATORY - PSYCHIATRY [facility] [place] [facility] Apr 03, 2025 03:00 PM AMBULATORY - PSYCHIATRY [facility] [place] [facility] Apr 17, 2025 03:00 PM AMBULATORY - PSYCHIATRY [facility] [place] [facility] May 10, 2025 03:00 PM AMBULATORY - PSYCHIATRY [facility] [place] [facility] May 29, 2025 03:00 PM AMBULATORY - PSYCHIATRY [facility] [place] [facility] Jun 16, 2025 03:00 PM AMBULATORY - PSYCHIATRY [facility] [place] [facility] Jun 23, 2025 03:00 PM AMBULATORY - PSYCHIATRY [facility] [place] [facility] Jun 30, 2025 11:00 AM AMBULATORY - PSYCHIATRY [facility] [place] [facility] Jul 07, 2025 01:00 PM AMBULATORY - PSYCHIATRY [facility] [place] [facility] Active, Pending, and Scheduled Orders This section includes a listing of several types of active, pending, and scheduled orders, including clinic medications orders, diagnostic test orders, procedure orders and consult orders; where the start date of the order is 45 days before the date of the Encounter or 45 days after the date of theEncounter. The data comes from all [place] treatment facilities. Test Date/Time Test Type Test Details Facility Name Jan 19, 2025 12:00 AM Laboratory - Chemistry Order TOTAL TESTOSTERONE BLOOD (SST-SERUM) SP [facility] Lab Results: +/- 30 days of the encounter This section includes the Chemistry and Hematology Lab Results on record with [place] for the patient. Radiology Reports and Pathology Reports are provided separately, in subsequent sections. Lab Results This section contains the Chemistry/Hematology Results that were resulted 30 days before or 30 daysafter the date of the Encounter. Date/Time Source Result Type Result - Unit Interpretation Reference Range Specimen Type Comment Jan 05, 2025 02:02 PM [facility] PT & INR (PROTIME) PLASMA Specimen Type: PLASMA No comment entered. Ordering Provider: NAM JUSTIN Report Released Date/Time: Dec 21, 2024 03:37 PM Reporting Lab: [facility] [address] [facility] [address] Performing Lab: [facility] [address] [facility] [address] INR 1.0 PROTIME 10.8 s 10.0-13.1 Jan 05, 2025 02:02 PM [facility] CERULOPLASMIN SERUM Specimen Type: SERUM No comment entered. Ordering Provider: NAM JUSTIN Report Released Date/Time: Dec 21, 2024 03:37 PM Reporting Lab: [facility] [address] [facility] [address] Performing Lab: [facility] [address] [facility] [address] CERULOPLASMIN 27 mg/dL 20-60 Jan 05, 2025 02:02 PM [facility] HEPATITIS B SURFACE ANTIBODY (HBsAb)- SERUM Specimen Type: SERUM No comment entered. Ordering Provider: NAM JUSTIN Report Released Date/Time: Dec 21, 2024 03:37 PM Reporting Lab: [address] [address] Performing Lab: [facility] Jan 05, 2025 02:02 PM [facility] HEPATITIS B SURFACE ANTIGEN (HBsAg)- SERUM Specimen Type: SERUM Comment: Hep B Surf Ag: Negative for HBsAg. Other markers of Hepatitis B virus are needed to ascertain Hepatitis B infection status. Ordering Provider: NAM JUSTIN Report Released Date/Time: Dec 21, 2024 03:37 PM Reporting Lab: [address] [address] Performing Lab: [address] [address] HBsAg Non Reactive Non Reactive Jan 05, 2025 02:02 PM [facility] HEPATITIS A ANTIBODY (IGG) SERUM Specimen Typ e: SERUM Comment: Hepatitis A IgG: A 'Reactive' result indicates previous exposure to Hepatitis A virus through infection or vaccination. Ordering Provider: NAM JUSTIN Report Released Date/Time: Dec 21, 2024 03:37 PM Reporting Lab: [address] [address] Performing Lab: [facility] [address] [facility] [address] HEPATITIS A ANTIBODY (IGG) REACTIVE Non Reactive Jan 05, 2025 02:02 PM [facility] TOSHA SCREEN/TITER SERUM Specimen Type: SERUM No comment entered. Ordering Provider: NAM JUSTIN Report Released Date/Time: Dec 21, 2024 03:37 PM Reporting Lab: [facility] [address] [facility] [address] Performing Lab: [facility] [address] [facility] [address] TOSHA SCREEN NEG NEG <1:40 Jan 05, 2025 02:02 PM [facility] PTH INTACT SERUM Specimen Type: SERUM No comment entered. Ordering Provider: NAM JUSTIN Report Released Date/Time: Dec 21, 2024 03:37 PM Reporting Lab: [facility] [address] [facility] [address] Performing Lab: [facility] [address] [facility] [address] PTH INTACT 57.0 pg/mL 8.7-77.1 Jan 05, 2025 02:02 PM [facility] TESTOSTERONE, TOTAL (WHV) SERUM Specimen Type : SERUM No comment entered. Ordering Provider: NAM JUSTIN Report Released Date/Time: Dec 21, 2024 03:37 PM Reporting Lab: [facility] [address] [facility] [address] Performing Lab: [facility] [address] [facility] [address] TESTOSTERONE, TOTAL (WHV) 147.23 ng/dL L 2 20.00-892.00 Jan 05, 2025 02:02 PM [facility] LH SERUM Specimen Type: SERUM Comment: PROLACTIN female range:PREMENOPAUSAL 3-27, POSTMENOPAUSAL 2-20 Male range changed from 2-14 to 3-20 on 01/03/13. Ordering Provider: NAM JUSTIN Report Released Date/Time: Dec 21, 2024 03:37 PM Reporting Lab: [facility] [address] [facility] [address] Performing Lab: [facility] [address] [facility] [address] LH 2.21 1-9 Jan 05, 2025 02:02 PM [facility] FSH SERUM Specimen Type: SERUM No comment entered. Ordering Provider: NAM JUSTIN Report Released Date/Time: Dec 21, 2024 03:37 PM Reporting Lab: [facility] [address] [facility] [address] Performing Lab: [facility] [address] [facility] [address] FSH 3.49 1-19 Jan 05, 2025 02:02 PM [facility] PROLACTIN SERUM Specimen Type: SERUM Comment: PROLACTIN female range:PREMENOPAUSAL 3-27, POSTMENOPAUSAL 2-20 Male range changed from 2-14 to 3-20 on 01/03/13. Ordering Provider: NAM JUSTIN Report Released Date/Time: Dec 21, 2024 03:37 PM Reporting Lab: [facility] [address] [facility] [address] Performing Lab: [facility] [address] [facility] [address] PROLACTIN 10.73 ng/mL 3-20 Jan 05, 2025 02:02 PM [facility] HEPATITIS C ANTIBODY (HCV)-ARC SERUM Specimen Type: SERUM Comment: Hep C Ab: No HCV antibody detected. If recent infection is suspected or other evidence suggests HCV infection, consider HCV nucleic acid testing Ordering Provider: NAM JUSTIN Report Released Date/Time: Dec 21, 2024 03:37 PM Reporting Lab: [facility] [address] [facility] [address] Performing Lab: [facility] [address] [facility] [address] HEPATITIS C ANTIBODY NON-REACTIVE NON-RE ACTIVE Jan 05, 2025 02:02 PM [facility] FERRITIN SERUM Specimen Type: SERUM No comment entered. Ordering Provider: NAM JUSTIN Report Released Date/Time: Dec 21, 2024 03:37 PM Reporting Lab: [facility] [address] [facility] [address] Performing Lab: [facility] [address] [facility] [address] FERRITIN 229 ng/mL 20-300 Jan 05, 2025 02:02 PM [facility] PSA SERUM Specimen Type: SERUM No comment entered. Ordering Provider: NAM JUSTIN Report Released Date/Time: Dec 21, 2024 03:37 PM Reporting Lab: [facility] [place] [facility] [address] [facility] [address] Performing Lab: [facility]ITAL[facility] TRN [facility] [address] [facility] [address] PSA 0.59 ng/mL 0.00-4.00 Jan 05, 2025 02:02 PM [facility] TSH SERUM Specimen Type: SERUM No comment entered. Ordering Provider: NAM JUSTIN Report Released Date/Time: Dec 21, 2024 03:37 PM Reporting Lab: [facility] [address] [facility] [address] Performing Lab: [facility]USE[address] [address] TSH 0.74 u[IU]/mL 0.35-5.00 Jan 05, 2025 02:02 PM [facility] IRON & TIBC PANEL SERUM Specimen Type: SERUM No comment entered. Ordering Provider: NAM JUSTIN Report Released Date/Time: Dec 21, 2024 03:37 PM Reporting Lab: [facility] [address] [facility] [address] Performing Lab: [facility] [address] [address] TIBC 281 ug/dL 204-475 IRON 85 ug/dL 40-160 Transferrin Saturation 30.2 20.0-50.0 Transferrin (TRF) 213 mg/dL 200-360 Jan 05, 2025 02:02 PM [facility] ALBUMIN SERUM Specimen Type: SERUM No comment entered. Ordering Provider: NAM JUSTIN Report Released Date/Time: Dec 21, 2024 03:37 PM Reporting Lab: [facility]N [facility] [address] [facility] [address] Performing Lab: [facility]USE[address] [address] ALBUMIN 4.1 g/dL 3.5-5.0 Jan 05, 2025 02:02 PM [facility] LIVER FUNCTION SERUM Specimen Type: SERUM No comment entered. Ordering Provider: NAM JUSTIN Report Released Date/Time: Dec 21, 2024 03:37 PM Reporting Lab: [address] [address] Performing Lab: [address] [address] PROTEIN,TOTAL 7.9 g/dL 6.0-8.3 ALBUMIN 4.1 g/dL 3.5-5.0 ALKALINE PHOSPHATASE 72 U/L 40-150 AST 18 U/L 5-34 ALT 27 U/L BILIRUBIN, TOTAL 0.3 mg/dL 0.2-1.2 Jan 05, 2025 02:02 PM [facility] LIPID PANEL, NON FASTING SERUM Specimen Type: SERUM No comment entered. Ordering Provider: NAM JUSTIN Report Released Date/Time: Dec 21, 2024 03:37 PM Reporting Lab: [address] [address] Performing Lab: [address] [address] CHOLESTEROL 251 mg/dL H TRIGLYCERIDE 254 mg/dL H 0-150 LDL calculated 157 mg/dL H 0-129 CHOL/HDL 5.8 HDL CHOLESTEROL 43 mg/dL 40-60 Vital Signs: All taken on the encounter date This section contains inpatient and outpatient Vital Signs collected on the date of the Encounter. Date/Time Temperature Pulse Blood Pressure Respiratory Rate SP02 Pain Height Weight Body Mass Index Source Jan 06, 2025 01:51 PM 98.1 92 124/83 20 99 0 72 231 31 [facility] Social History: Smoking Status (Most current) and Tobacco Use (All prior to encounter date) This section includes the most current, and the historical, smoking and tobacco- related health factors from the [place] facility where the Encounter took place. Current Smoking Status This section includes the most current smoking, or tobacco-related health factor, from the [place] facility where the Encounter took place. Date/Time Current Smoking Status Comment Henrietta crow Jul 07, 2024 03:00 PM [place]-TOBACCO FORMER USER [facility] Tobacco Use History This section includes a history of the smoking, or tobacco-related health factors, that were collected on or before the date of the Encounter. The data comes from the [place] facility where the Encounter took place. Date/Time Smoking Status/Tobacco Use Comment F acility Jul 07, 2024 03:00 PM [place]-TOBACCO QUIT 5 TO < 15 YRS [facility] Jun 01, 2023 03:30 PM [place]-TOBACCO FORMER USER [facility] Jun 01, 2023 03:30 PM [place]-TOBACCO QUIT 5 TO < 15 YRS [facility] Radiology Reports: +/- 30 days of the [...] the Encounter. The data comes from all [place] treatment facilities. Date/Time Radiology Report Provider Source Jan 06, 2025 02:15 PM LDCT LUNG CANCER SCREENING: TODD JORGENSEN [id number] [id number] M Exm Date: JAN 06, 2025@14:15 Req Phys: NAM JUSTIN Loc: [facility] LCS CHART CONSULT (Pastora Rubio Img Loc: [facility]/CT Service: [place] [address] (Case [id number] COMPLETE) LDCT LUNG CANCER SCREENING (CT Detailed) CPT:83494 Reason for Study: Lung Cancer Screen Clinical History: 28 TPY, Quit 2011 Comparison: LDCT 6 m f/u 12/29/23 [...] 06, 2025 Date Verified: JAN 06, 2025 Architecture Department Chair E-Sig:/ES/MARTÍN MCLEOD JR Report: Study: Lung cancer [...] reviewed. Secondary computer-aided detection with post-processing from [employer] is used. The lack of intravenous contrast [...] Primary Interpreting Staff: MARTÍN MCLEOD JR, Radiologist (Architecture Department Chair) /MARTÍN STERLING JR [place] [facility] Encounter Notes: All associated encounter notes This section contains the clinical notes associated to the Encounter. Date/Time Encounter Note(s) Provider Source Jan 06, 2025 02:05 PM PRIMARY CARE NURSE PRACTITIONER OUTPATIENT NOTE: LOCAL TITLE: NURSE PRACTITIONER OUTPATIENT NOTE STANDARD TITLE: PRIMARY CARE NURSE PRACTITIONER OUTPATIENT NOTE DATE OF NOTE: JAN 06, 2025@14:05 ENTRY DATE: JAN 06, 2025@14:05:32 AUTHOR: NAM JUSTIN COSIGNER: URGENCY: STATUS: COMPLETED Chief complaint: Patient is a 54 year old . HPI: Pleasant male [place] here to follow up. Allergies: AMPHETAMINES, RITALIN, ADDERALL The following VA and Non-VA meds were reconciled with patient. The patient was educated on the use of the medications including indication and side effects. Active and Recently Outpatient Medications (excluding Supplies): Active Outpatient Medications Status === 1) ATOMOXETINE 60MG CAP TAKE ONE CAPSULE BY MOUTH TWICE DAILY ACTIVE Indication: FOR ADHD 2) CYANOCOBALAMIN 1000MCG TAB TAKE ONE TABLET BY MOUTH ONCE ACTIVE DAILY Indication: FOR PREVENTION OF VITAMIN B12 DEFICIENCY 3) DM 10/GUAIFENESN 100MG/5ML (AF & SF) LIQ TAKE 5 MLS BY MOUTH ACTIVE EVERY 6 HOURS NEEDED Indication: FOR COUGH 4) LEVOTHYROXINE NA 125MCG TAB TAKE ONE TABLET BY MOUTH EVERY ACTIVE MORNING 30 MINUTES BEFORE BREAKFAST TAKE ON AN EMPTY STOMACH WITH A FULL GLASS OF WATER Indication: FOR THYROID 5) OMEPRAZOLE 20MG EC CAP TAKE TWO CAPSULES BY MOUTH EVERY ACTIVE MORNING 30 MINUTES BEFORE BREAKFAST Indication: FOR EXCESSIVE PRODUCTION OF STOMACH ACID 6) SERTRALINE HCL 100MG TAB TAKE ONE-HALF TABLET BY MOUTH ONCE ACTIVE DAILY Indication: FOR MAJOR DEPRESSIVE DISORDER Pending Outpatient Medications Status === 1) FLUTICASONE PROP 50MCG 120D NASAL INHL INSTILL 1 SPRAY INTO PENDING EACH NOSTRIL TWICE DAILY Indication: FOR NASAL IRRITATION/INFLAMMATION 2) SILDENAFIL CITRATE 100MG TAB TAKE ONE TABLET BY MOUTH ONCE PENDING DAILY NEEDED TAKE 1 HOUR PRIOR TO SEXUAL ACTIVITY Indication: FOR ERECTILE DYSFUNCTION Inactive Outpatient Medications Status === 1) FLUTICAS 250/SALMETEROL 50 INHL DISK 60 INHALE 1 PUFF BY MOUTH TWICE DAILY - RINSE MOUTH AFTER USE Indication: FOR BRONCHOSPASM PREVENTION WITH COPD 2) SIMVASTATIN 80MG TAB TAKE ONE-HALF TABLET BY MOUTH ONCE DAILY FOR CHOLESTEROL Indication: FOR HIGH CHOLESTEROL 10 Total Medications Review of Systems: Constitutional: (-)for Fevers, chills, weakness, nights sweats On examination: 98.1 F [36.7 C] (01/06/2025 13:51)124/83 (01/06/2025 13:51)92 (01/06/2025 13:51)20 (01/06/2025 13:51)0 (01/06/2025 13:51)BMI: 31.4231 lb [104.78 kg] (01/06/2025 13:51) [place] is alert and oriented X3 Cardiovasc: 2plus carotids without bruits, no JVD Heart Reguler rate and rhythm NL S1S2 no S3 or murmur Respiration: Normal respiratory effort, lungs clear ABD: Benign normal active bowel sounds no HSM no rebound or referred pain EXT: no clubbing, edema, or cyanosis All diagnostics from past month were reviewed with patient. Assessment/plan: Active problems - Computerized Problem List is the source for the followin. Primary erectile dysfunction - sildenafil ordered/educated on use 2. Multiple nodules of lung - follow up ct scheduled today 3. Hypothyroidism (SCT 80366362) - euthroid 4. Hyperlipidemia (SCT 37789305) - elevated, he stopped statin, will resume 5. Fatty liver - LFTs ok, seen by hepatology with no follow up needed 6. fatigue - low T but collected in the afternoon, he will come and repeat prior to 9am, refer for sleep study 7. ear fullness - trial of fluticasone Today I spent 40 minutes on some or all of the following: chart review, history, physical examination, treatment planning, education and counseling of the patient/family/manager managed care, placing orders, communicating with other health care providers, completing health and wellness screenings (see below) and documentation in the electronic health record. Follow up visit in 6 mos. Medication Reconciliation: Outpatient: Has the patient been taking medications as documented in the EMLR? YES: The patient has been taking medications as documented in the EMLR. Essential Medication List for Review used to complete this medication reconciliation. INCLUDED IN THIS LIST: Alphabetical list of active outpatient prescriptions dispensed from this [place] (local) and dispensed from another [place] or [facility] facility (remote) as well as inpatient orders (local, pending and active), local clinic medications, locally documented non-VA medications, and local prescriptions that have or been discontinued in the past 90 days. - All changes in medications, including all non-VA/Herbal/OTC medications were entered into CPRS. - If there were any medications the patient should no longer take, they were discontinued. - The patient/caregiver was instructed to update this list, discard old lists, and take this list to the next appointment, whether with a VA or non-VA provider. /tanmay/ Nam Justin DNP, WIRE COILER MACHINE OPERATOR-BC, CNL Primary Care Nurse Practitioner Signed: 01/06/2025 14:10 NAM JUSTIN [place] [facility] [place] [facility] Jan 06, 2025 01:52 PM PREVENTIVE MEDICINE NURSING NOTE: LOCAL TITLE: CLINICAL REMINDERS/NURSING STANDARD TITLE: PREVENTIVE MEDICINE NURSING NOTE DATE OF NOTE: JAN 06, 2025@13:52 ENTRY DATE: JAN 06, 2025@13:52:57 AUTHOR: JEFERSON KIM EXP COSIGNER: URGENCY: STATUS: COMPLETED Advance Directive Screen MH AD: Patient does not have an Advance Directive completed and is requesting more information. A consult was sent to Social Work Services at this visit so that an appointment can be made with the patient to review the advance directive. The patient received education about Advance Directives and written notification of his/her rights. /tanmay/ Jeferson Kim, Health Stencil Inspector CHILD PROTECTION SPECIALIST,PRIMARY CARE Signed: 01/06/2025 13:53 JEFERSON KIM [facility]
--- OUTSIDE RECORDS SUMMARY | 2025-01-06 11:09 | XMS_ITS | Encounter Summary ---
Author Name [facility] Organization [facility] [place] Address [address] [place] [address] Care Team Providers Care Display Maker Name Role Phone NAM JUSTIN Primary Care [...] E HEALTH PLAN [facility] [facility] HP Oct 09, [id number] HUGEL,DARRICK HAEL PATIENT [place]BS [place] HIGH DEDUCTIBL E HEALTH PLAN [place] HDHP Oct 09, [id number] HUGEL,DARRICK HAEL PATIENT [place] PREFERRED PROVIDER ORGANIZAT ION (PPO) [facility] [place] [facility] [employer]. Oct 09, [id number] [phone] HUGEL,DARRICK HAEL PATIENT [place] PRESCRIPT ION BCBS [facility] Oct 12, 2022 [id number] [id number] HUGEL,DARRICK HAMARCO ANTONIO PATIENT [place] PRESCRIPT ION [place] [facility] Oct 09, 2022 [id number] [id number] HUGEL,DARRICK HAMARCO ANTONIO PATIENT [place] ([id number]) PRESCRIPT ION [facility] Oct 12, 2022 [id number] [phone] HUGEL,DARRICK HAMARCO ANTONIO PATIENT [employer] PRESCRIPT ION [facility] [place] [facility] [employer] Nov 06, 2020 [id number] HUGEL,DARRICK HAMARCO ANTONIO PATIENT [employer] PRESCRIPT ION [place] Nov 06, 2020 [id number] HUGEL,DARRICK HAMARCO ANTONIO PATIENT [employer] PRESCRIPT ION [facility] [place] [facility] [employer] Nov 06, 2020 [id number] HUGEL,DARRICK KEENE PATIENT Selected Encounter This section includes the information on record at OR for the Encounter. Date/Time Encounter Type Encounter Description Reason Provider Source Jan 06, 2025 04:09 PM NQHP OL DIG ASSMT&MGMT 21+ PULMONARY/CHEST ICD-10-CM Z12.2 Encntr screen for malignant neoplasm of respiratory organs CHRISTIAN MARIE [facility] Encounter Template Text not used by OR Assessments - Encounter Diagnoses This section includes the primary and secondary diagnoses documented for the Encounter. Date/Time Primary/Secondary Diagnosis Diagnosis Name Provider Source Jan 06, 2025 04:17 PM PRIMARY Encntr screen for malignant neoplasm of respiratory organs CHRISTIAN MARIE [place] [facility] [facility] Plan of Treatment: Future Appointments (+ 6 months) and Future Tests (+/- 45 days) The Plan of Treatment section includes future care activities for the patient from all [facility] treatmentfacilities. This section includes future appointments and future orders which are active, pending or scheduled. Future Appointments This section includes appointments that were scheduled to occur 6 months from the date of the Encounter, up to a maximum of 20 appointments. The data comes from all [place] treatment facilities. Appointment Date/Time Appointment Type Appointme nt Facility Name Jan 09, 2025 03:00 PM AMBULATORY - PSYCHIATRY [place] [facility] [facility] Jan 23, 2025 03:00 PM AMBULATORY - PSYCHIATRY [place] [facility] [place] [facility] Feb 06, 2025 03:00 PM AMBULATORY - PSYCHIATRY [place] [facility] [place] [facility] February 20, 2025 03:00 PM AMBULATORY - PSYCHIATRY [place] [facility] [place] [facility] March 10, 2025 11:00 AM AMBULATORY - PSYCHIATRY [place] [facility] [facility] Mar 21, 2025 01:00 PM AMBULATORY - PSYCHIATRY [place] [facility] [place] [facility] Apr 03, 2025 03:00 PM AMBULATORY - PSYCHIATRY [place] [facility] [place] [facility] Apr 17, 2025 03:00 PM AMBULATORY - PSYCHIATRY [place] [facility] [place] [facility] May 10, 2025 03:00 PM AMBULATORY - PSYCHIATRY [place] [facility] [place] [facility] May 29, 2025 03:00 PM AMBULATORY - PSYCHIATRY [place] [facility] [place] [facility] Jun 16, 2025 03:00 PM AMBULATORY - PSYCHIATRY [place] [facility] [place] [facility] Jun 23, 2025 03:00 PM AMBULATORY - PSYCHIATRY [place] [facility] [place] [facility] Jun 30, 2025 11:00 AM AMBULATORY - PSYCHIATRY [place] [facility] [place] [facility] Jul 07, 2025 01:00 PM AMBULATORY - PSYCHIATRY [place] [facility] [place] [facility] Active, Pending, and Scheduled Orders This section includes a listing of several types of active, pending, and scheduled orders, including clinic medications orders, diagnostic test orders, procedure orders and consult orders; where the start date of the order is 45 days before the date of the Encounter or 45 days after the date of theEncounter. The data comes from all [place] treatment [facility]. Test Date/Time Test Type Test Details Facility Name Jan 19, 2025 12:00 AM Laboratory - Chemistry Order TOTAL TESTOSTERONE BLOOD (SST-SERUM) [facility] [place] [facility] Lab Results: +/- 30 days of the [...] Type Comment Jan 05, 2025 02:02 PM [facility] PT & INR (PROTIME) PLASMA Specimen Type: PLASMA No comment entered. Ordering Provider: NAM JUSTIN Report Released Date/Time: Dec 21, 2024 03:37 PM Reporting Lab: [address] [address] Performing Lab: [address] [address] INR 1.0 PROTIME 10.8 s 10.0-13.1 Jan 05, 2025 02:02 PM [facility] CERULOPLASMIN SERUM Specimen Type: SERUM No comment entered. Ordering Provider: NAM JUSTIN Report Released Date/Time: Dec 21, 2024 03:37 PM Reporting Lab: [facility] [address] [address] Performing Lab: [facility] [address] [facility] [address] CERULOPLASMIN 27 mg/dL 20-60 Jan 05, 2025 02:02 PM [facility] HEPATITIS B SURFACE ANTIBODY (HBsAb)- SERUM Specimen Type: SERUM No comment entered. Ordering Provider: NAM JUSTIN Report Released Date/Time: Dec 21, 2024 03:37 PM Reporting Lab: [address] [address] Performing Lab: [facility] Jan 05, 2025 02:02 PM [facility] HEPATITIS B SURFACE ANTIGEN (HBsAg)- SERUM Specimen Type: SERUM Comment: Hep B Surf Ag: Negative for HBsAg. Other markers of Hepatitis B virus are needed to ascertain Hepatitis B infection status. Ordering Provider: NAM JUSTIN Report Released Date/Time: Dec 21, 2024 03:37 PM Reporting Lab: [facility] [address] [address] Performing Lab: [facility] [address] [facility] [address] HBsAg Non Reactive Non Reactive Jan 05, 2025 02:02 PM [facility] HEPATITIS A ANTIBODY (IGG) SERUM Specimen Typ e: SERUM Comment: Hepatitis A IgG: A 'Reactive' result indicates previous exposure to Hepatitis A virus through infection or vaccination. Ordering Provider: NAM JUSTIN Report Released Date/Time: Dec 21, 2024 03:37 PM Reporting Lab: [facility] [address] [address] Performing Lab: [facility] [address] [facility] [address] HEPATITIS A ANTIBODY (IGG) REACTIVE Non Reactive Jan 05, 2025 02:02 PM [facility] TOSHA SCREEN/TITER SERUM Specimen Type: SERUM No comment entered. Ordering Provider: NAM JUSTIN Report Released Date/Time: Dec 21, 2024 03:37 PM Reporting Lab: [facility] [address] [address] Performing Lab: [facility] [address] [facility] [address] TOSHA SCREEN NEG NEG <1:40 Jan 05, 2025 02:02 PM [facility] PTH INTACT SERUM Specimen Type: SERUM No comment entered. Ordering Provider: NAM JUSTIN Report Released Date/Time: Dec 21, 2024 03:37 PM Reporting Lab: [facility] [address] [address] Performing Lab: [facility]ENTERUSE[address] [address] PTH INTACT 57.0 pg/mL 8.7-77.1 Jan 05, 2025 02:02 PM [facility] TESTOSTERONE, TOTAL (WHV) SERUM Specimen Type : SERUM No comment entered. Ordering Provider: NAM JUSTIN Report Released Date/Time: Dec 21, 2024 03:37 PM Reporting Lab: [facility] [place] [facility] [address] [facility] [address] Performing Lab: [facility] [address] [facility] [address] TESTOSTERONE, TOTAL (WHV) 147.23 ng/dL L 2 20.00-892.00 Jan 05, 2025 02:02 PM [facility] LH SERUM Specimen Type: SERUM Comment: PROLACTIN female range:PREMENOPAUSAL 3-27, POSTMENOPAUSAL 2-20 Male range changed from 2-14 to 3-20 on 01/03/13. Ordering Provider: NAM JUSTIN Report Released Date/Time: Dec 21, 2024 03:37 PM Reporting Lab: [facility] [address] [facility] [address] Performing Lab: [facility] [address] [facility] [address] LH 2.21 1-9 Jan 05, 2025 02:02 PM [facility] FSH SERUM Specimen Type: SERUM No comment entered. Ordering Provider: NAM JUSTIN Report Released Date/Time: Dec 21, 2024 03:37 PM Reporting Lab: [facility] [address] [facility] [facility] [address] Performing Lab: [facility] [address] [facility] [phone] FSH 3.49 1-19 Jan 05, 2025 02:02 PM [facility] PROLACTIN SERUM Specimen Type: SERUM Comment: PROLACTIN female range:PREMENOPAUSAL 3-27, POSTMENOPAUSAL 2-20 Male range changed from 2-14 to 3-20 on 01/03/13. Ordering Provider: NAM JUSTIN Report Released Date/Time: Dec 21, 2024 03:37 PM Reporting Lab: [facility] [address] [address] Performing Lab: [facility] [address] [facility] [address] PROLACTIN 10.73 ng/mL 3-20 Jan 05, 2025 02:02 PM [facility] HEPATITIS C ANTIBODY (HCV)-ARC SERUM Specimen Type: SERUM Comment: Hep C Ab: No HCV antibody detected. If recent infection is suspected or other evidence suggests HCV infection, consider HCV nucleic acid testing Ordering Provider: NAM JUSTIN Report Released Date/Time: Dec 21, 2024 03:37 PM Reporting Lab: [facility] [address] [facility] [address] Performing Lab: [facility] [address] [facility] [address] HEPATITIS C ANTIBODY NON-REACTIVE NON-RE ACTIVE Jan 05, 2025 02:02 PM [facility] FERRITIN SERUM Specimen Type: SERUM No comment entered. Ordering Provider: NAM JUSTIN Report Released Date/Time: Dec 21, 2024 03:37 PM Reporting Lab: [facility] [address] [facility] [facility] [address] Performing Lab: [facility] [address] [facility] [address] FERRITIN 229 ng/mL 20-300 Jan 05, 2025 02:02 PM [facility] PSA SERUM Specimen Type: SERUM No comment entered. Ordering Provider: NAM JUSTIN Report Released Date/Time: Dec 21, 2024 03:37 PM Reporting Lab: [facility] [address] [facility] [address] Performing Lab: [facility] [address] [facility] [address] PSA 0.59 ng/mL 0.00-4.00 Jan 05, 2025 02:02 PM [facility] TSH SERUM Specimen Type: SERUM No comment entered. Ordering Provider: NAM JUSTIN Report Released Date/Time: Dec 21, 2024 03:37 PM Reporting Lab: [facility] [address] [facility] [facility] [address] Performing Lab: [facility] [address] [address] TSH 0.74 u[IU]/mL 0.35-5.00 Jan 05, 2025 02:02 PM [facility] IRON & TIBC PANEL SERUM Specimen Type: SERUM No comment entered. Ordering Provider: NAM JUSTIN Report Released Date/Time: Dec 21, 2024 03:37 PM Reporting Lab: [address] [address] Performing Lab: [facility] [address] [address] TIBC 281 ug/dL 204-475 IRON 85 ug/dL 40-160 Transferrin Saturation 30.2 20.0-50.0 Transferrin (TRF) 213 mg/dL 200-360 Jan 05, 2025 02:02 PM [facility] ALBUMIN SERUM Specimen Type: SERUM No comment entered. Ordering Provider: NAM JUSTIN Report Released Date/Time: Dec 21, 2024 03:37 PM Reporting Lab: [address] [address] Performing Lab: [address] [address] ALBUMIN 4.1 g/dL 3.5-5.0 Jan 05, 2025 02:02 PM [facility] LIVER FUNCTION SERUM Specimen Type: SERUM No comment entered. Ordering Provider: NAM JUSTIN Report Released Date/Time: Dec 21, 2024 03:37 PM Reporting Lab: [address] [address] Performing Lab: [address] [address] PROTEIN,TOTAL 7.9 g/dL 6.0-8.3 ALBUMIN 4.1 g/dL 3.5-5.0 ALKALINE PHOSPHATASE 72 U/L 40-150 AST 18 U/L 5-34 ALT 27 U/L BILIRUBIN, TOTAL 0.3 mg/dL 0.2-1.2 Jan 05, 2025 02:02 PM [facility] LIPID PANEL, NON FASTING SERUM Specimen Type: SERUM No comment entered. Ordering Provider: NAM JUSTIN Report Released Date/Time: Dec 21, 2024 03:37 PM Reporting Lab: [facility] [address] [facility] [address] Performing Lab: [facility] [address] [facility] [address] CHOLESTEROL 251 mg/dL H TRIGLYCERIDE 254 mg/dL [...] 124/83 20 99 0 72 231 31 [facility] Social History: Smoking Status (Most current) and Tobacco Use (All prior to encounter date) This section includes the most current, and the historical, smoking and tobacco- related health factors from the OR facility where the Encounter took place. Current Smoking Status This section includes the most current smoking, or tobacco-related health factor, from the OR facility where the Encounter took place. Date/Time Current Smoking Status Comment Henrietta crow Jul 07, 2024 03:00 PM VA-TOBACCO FORMER USER [facility] Tobacco Use History This section includes a history of the smoking, or tobacco-related health factors, that were collected on or before the date of the Encounter. The data comes from the OR facility where the Encounter took place. Date/Time Smoking Status/Tobacco Use Comment F acdon Jul 07, 2024 03:00 PM VA-TOBACCO QUIT 5 TO < 15 YRS [facility] Jun 01, 2023 03:30 PM VA-TOBACCO FORMER USER [facility] Jun 01, 2023 03:30 PM OR-TOBACCO QUIT 5 TO < 15 YRS [facility] Radiology Reports: +/- 30 days of [...] the Encounter. The data comes from all OR treatment facilities. Date/Time Radiology Report Provider Source Jan 06, 2025 02:15 PM LDCT LUNG CANCER SCREENING: CARRILLO JORGENSEN [id number] [phone] M Exm Date: JAN 06, 2025@14:15 Req Phys: NAM JUSTIN Loc: [facility] LCS CHART CONSULT (Req'g L Img Loc: [facility]/CT Service[place] [address] (Case [id number] COMPLETE) LDCT LUNG CANCER SCREENING (CT Detailed) CPT:53822 Reason for Study: Lung Cancer Screen Clinical [...] 06, 2025 Date Verified: JAN 06, 2025 Environmental Health Technician E-Sig:/ES/MARTÍN MCLEOD JR Report: Study: Lung cancer [...] reviewed. Secondary computer-aided detection with post-processing from [employer] is used. The lack of intravenous contrast [...] Primary Interpreting Staff: MARTÍN MCLEOD JR, Radiologist (Environmental Health Technician) /MARTÍN STERLING JR [facility] Encounter Notes: All associated encounter notes This section contains the clinical notes associated to the Encounter. Date/Time Encounter Note(s) Provider Source Jan 06, 2025 04:19 PM [facility] RISK ASSESSMENT SCREENING NOTE: LOCAL TITLE: LUNG CANCER SCREENING DOCUMENTATION STANDARD TITLE: PREVENTIVE MEDICINE RISK ASSESSMENT SCREENING NO DATE OF NOTE: JAN 06, 2025@16:19 ENTRY DATE: JAN 06, 2025@16:19:30 AUTHOR: MARIBEL MARIE EXP COSIGNER: URGENCY: STATUS: COMPLETED January 06, 2025 Dear [place]: Mr. Carrillo Jorgensen, Your recent lung cancer screening CT scan found a small lung nodule. Most nodules are not lung cancer, but a few can grow into lung cancer. As mentioned in the enclosed brochure, nodules are often caused by scar tissue, a healed infection, or some other irritant found in the air we breathe. 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 In general, more than 95 out of 100 nodules found on lung cancer screening CT scans are not lung cancer. A copy of the results from your Low-Dose CT scan done on 01/06/2025 are enclosed with this letter. If there are additional findings, we will alert your primary care team. Your next lung cancer screening CT scan is due in 12 months(DECEMBER 2025). You can call Imaging at [phone] to schedule this appointment. Or the Radiology team will reach out to schedule about 3 months prior to when your scan is due. If at the time of your next scan you are experiencing an upper respiratory illness like a cold or the flu, please get your scan 4 weeks after your symptoms have gone away. Lung cancer screening can detect lung cancer, but it does not prevent it. Rarely, a CT scan can miss a small lung cancer. Contact your primary care provider if you develop new symptoms like worsening shortness of breath, change in a cough, or coughing up blood. If you still smoke cigarettes, we can help you quit. We understand that quitting cigarette smoking is difficult, but it is the best way to improve your health. When you want help, let your primary care provider know. You can also call 7-986-AIFN-VET ( ) or visit aka-aki networks.smokefree.gov. Please contact us with questions or concerns about lung cancer screening. Sincerely, RAVEN Mosqueda, RN Ext [phone] [facility] Lung Cancer Screening Coordinator Enclosures: brochure entitled, Small Lung Nodules: What You Need to Know /es/ RAVEN APPIAH,RN. LUNG CANCER SCREENING NURSE Signed: 01/06/2025 16:20 MARIBEL MARIE [place] [facility] [place] [facility] Jan 06, 2025 04:09 PM PREVENTIVE MEDICINE RISK ASSESSMENT SCREENING NOTE: LOCAL TITLE: LUNG CANCER SCREENING DOCUMENTATION STANDARD TITLE: PREVENTIVE MEDICINE RISK ASSESSMENT SCREENING NO DATE OF NOTE: JAN 06, 2025@16:09 ENTRY DATE: JAN 06, 2025@16:10:01 AUTHOR: MARIBEL MARIE EXP COSIGNER: URGENCY: STATUS: COMPLETED NO LUNG NODULES or TRACKING OF NODULE NOT INDICATED per guidelines (e.g., clearly benign/some small nodules). Date of image: Date: January 06, 2025 LDCT Scan Results: Most recent LDCT scan shows a nodule for which tracking is not indicated per guidelines or radiology report. Lung RADS Score: 2 Lung-RADS Assessment: Category 2, benign appearance or behavior. Recommendation: Continue annual screening with lung cancer screening CT in 12 months. Index Nodule: Stable 5.8 mm solid, well-circumscribed juxtapleural left lower lobe pulmonary nodule, 8-338. Other Nodules: 5.0 mm solid right upper lobe well-circumscribed ovoid pulmonary nodule on the minor fissure, 8-157, likely representing intrapulmonary lymph node is unchanged. Stable 4.3 mm solid, ovoid, well-circumscribed, juxtapleural left upper lobe pulmonary nodule, 8-235. INCIDENTAL FINDINGS WILL BE MANAGED DEEMED APPROPRIATE BY PCP Incidental Findings: The following *INCIDENTAL FINDINGS* were noted: Other: Emphysema: Mild centrilobular and paraseptal emphysematous changes with associated scattered parenchymal scarring is unchanged. Parenchymal scarring most pronounced at the pulmonary apices. Visualized coronary artery calcifications: Atherosclerotic changes of the aorta and coronary arteries. Upper abdomen: Hepatomegaly to the visualized liver is again seen with diffuse hepatic steatotic changes again seen. I am notifying the Primary Care Provider for information, and for follow-up of incidental findings, if indicated. Comment: PCP as second signer in CPRS. Plan: Continue routine annual lung cancer screening. Patient Notification of results: Results letter sent to patient. Patient contacted by telephone. Call placed to the [place]. Results of LCS LDCT reviewed specific to pulmonary nodules/masses. aware of the stable lung nodules mentioned above, education provided on small lung nodues. Importance of and rationale for continued surveillance with LDCT at an annual interval discussed. agrees with continued surveillance through the lung cancer screening program and LCS LDCT in one year. [place] quit smoking 2011. Order for LCS LDCT in 12 months placed, held for PCP signature /tanmay/ RAVEN APPIAH,RN. LUNG CANCER SCREENING NURSE Signed: 01/06/2025 16:17 Receipt Acknowledged By: 01/09/2025 07:34 /tanmay/ Nam Justin DNP, HARBOR PILOT-BC, CNL Primary Care Nurse Practitioner MARIBEL MARIE [facility]
--- OUTSIDE RECORDS SUMMARY | 2025-01-09 10:00 | XMS_ITS ---
Author Name [facility] Organization [facility]) Address [address] [place] [address] Care Team Providers Care Server Programmer Name Role Phone ZANE CAO Primary Care [...] [place] [facility] Oct 09, [id number] [phone] HUGEL,DARRICK HAEL PATIENT [place]BS [place] HIGH DEDUCTIBL E HEALTH PLAN [facility] [place] [facility] Oct 09, [id number] HUGEL,DARRICK HAEL PATIENT [place] OF [place] PREFERRED PROVIDER ORGANIZAT ION (PPO) [facility] [place] [employer] Oct 09, [id number] [phone] HUGEL,DARRICK HAEL PATIENT [place] PRESCRIPT ION BCBS [place] [facility] [facility] Oct 12, 2022 [id number] HUNTERL,DARRICK KEENE PATIENT [place] PRESCRIPT ION [facility] [place] [facility] Oct 09, 2022 [id number] HUNTERL,DARRICK KEENE PATIENT [place] ([id number]) PRESCRIPT ION [place] [facility] Oct 12, 2022 [id number] HUGEL,DARRICK KEENE PATIENT [employer] BR[employer]ATION PRESCRIPT ION [facility] [place] [facility] [employer] Nov 06, 2020 [id number] HUGEL,DARRICK HAMARCO ANTONIO PATIENT [employer] [employer] PRESCRIPT ION [place] OF [place] Nov 06, 2020 [id number] HUGEL,DARRICK HAMARCO ANTONIO PATIENT [employer] [employer] PRESCRIPT ION [facility] [place] [employer] Nov 06, 2020 [id number] [phone] HUGEL,DARRICK KEENE PATIENT Selected Encounter This section includes the information on record at ID for the Encounter. Date/Time Encounter Type Encounter Description Reason Pro vider Source Jan 09, 2025 03:00 PM Outpatient Encounter [facility] Encounter Template Text not used by ID Plan of Treatment: Future Appointments (+ 6 months) and Future Tests (+/- 45 days) The Plan of Treatment section includes future care activities for the patient from all ID treatmentfacilities. This section includes future appointments and future orders which are active, pending or scheduled. Future Appointments This section includes appointments that were scheduled to occur 6 months from the date of the Encounter, up to a maximum of 20 appointments. The data comes from all ID treatment facilities. Appointment Date/Time Appointment Type Appointme nt Facility Name Jan 23, 2025 03:00 PM AMBULATORY - PSYCHIATRY [facility] [place] [facility] Feb 06, 2025 03:00 PM AMBULATORY - PSYCHIATRY [facility] [place] [facility] February 20, 2025 03:00 PM AMBULATORY - PSYCHIATRY [facility] [place] [facility] March 10, 2025 11:00 AM AMBULATORY - PSYCHIATRY [facility] [place] [facility] Mar 21, 2025 01:00 PM AMBULATORY - PSYCHIATRY [facility] [place] [facility] Apr 03, 2025 03:00 PM AMBULATORY - PSYCHIATRY [facility] [place] [facility] Apr 17, 2025 03:00 PM AMBULATORY - PSYCHIATRY [facility] [place] [facility] May 10, 2025 03:00 PM AMBULATORY - PSYCHIATRY [facility] [place] [facility] May 29, 2025 03:00 PM AMBULATORY - PSYCHIATRY [facility] [place] [facility] Jun 16, 2025 03:00 PM AMBULATORY - PSYCHIATRY [facility] [place] [facility] Jun 23, 2025 03:00 PM AMBULATORY - PSYCHIATRY [facility] [place] [facility] Jun 30, 2025 11:00 AM AMBULATORY - PSYCHIATRY [facility] [place] [facility] Jul 07, 2025 01:00 PM AMBULATORY - PSYCHIATRY [facility] [place] [facility] Jul 10, 2025 10:30 AM [facility] - [facility] Active, Pending, and Scheduled Orders This section includes a listing of several types of active, pending, and scheduled orders, including clinic medications orders, diagnostic test orders, procedure orders and consult orders; where the start date of the order is 45 days before the date of the Encounter or 45 days after the date of theEncounter. The data comes from all ID treatment facilities. Test Date/Time Test Type Test Details Facility Name Jan 19, 2025 12:00 AM Laboratory - Chemistry Order TOTAL TESTOSTERONE BLOOD (SST-SERUM) [facility] Lab Results: +/- 30 days of the encounter This section includes the Chemistry and Hematology Lab Results on record with ID for the patient. Radiology Reports and Pathology Reports are provided separately, in subsequent sections. Lab Results This section contains the Chemistry/Hematology Results that were resulted 30 days before or 30 daysafter the date of the Encounter. Date/Time Source Result Type Result - Unit Interpretation Reference Range Specimen Type Comment Jan 05, 2025 02:02 PM [facility] PT & INR (PROTIME) PLASMA Specimen Type: PLASMA No comment entered. Ordering Provider: ZANE CAO Report Released Date/Time: Dec 21, 2024 03:37 PM Reporting Lab: [facility] [address] [address] Performing Lab: [address] [address] INR 1.0 PROTIME 10.8 s 10.0-13.1 Jan 05, 2025 02:02 PM [facility] HEPATITIS B SURFACE ANTIBODY (HBsAb)- SERUM Specimen Type: SERUM No comment entered. Ordering Provider: ZANE CAO Report Released Date/Time: Dec 21, 2024 03:37 PM Reporting Lab: [address] [address] Performing Lab: [facility] Jan 05, 2025 02:02 PM [facility] CERULOPLASMIN SERUM Specimen Type: SERUM No comment entered. Ordering Provider: ZANE CAO Report Released Date/Time: Dec 21, 2024 03:37 PM Reporting Lab: [address] [address] Performing Lab: [facility] [address] [facility] [address] CERULOPLASMIN 27 mg/dL 20-60 Jan 05, 2025 02:02 PM [facility] HEPATITIS B SURFACE ANTIGEN (HBsAg)- SERUM Specimen Type: SERUM Comment: Hep B Surf Ag: Negative for HBsAg. Other markers of Hepatitis B virus are needed to ascertain Hepatitis B infection status. Ordering Provider: ZANE CAO Report Released Date/Time: Dec 21, 2024 03:37 PM Reporting Lab: [address] [address] Performing Lab: [facility] [address] [address] HBsAg Non Reactive Non Reactive Jan 05, 2025 02:02 PM [facility] TOSHA SCREEN/TITER SERUM Specimen Type: SERUM No comment entered. Ordering Provider: ZANE CAO Report Released Date/Time: Dec 21, 2024 03:37 PM Reporting Lab: [facility]ITALRU[facility]ITALTRN [facility] [address] [address] Performing Lab: [facility]ITALRUAB [facility]ITALTRN [facility] [address] [facility] [facility] [address] TOSHA SCREEN NEG NEG <1:40 Jan 05, 2025 02:02 PM [facility] HEPATITIS A ANTIBODY (IGG) SERUM Specimen Typ e: SERUM Comment: Hepatitis A IgG: A 'Reactive' result indicates previous exposure to Hepatitis A virus through infection or vaccination. Ordering Provider: ZANE CAO Report Released Date/Time: Dec 21, 2024 03:37 PM Reporting Lab: [facility]ITAL[facility]AB [facility]ITALTRN [facility]ITALUSE[address] [address] Performing Lab: [facility]ITALRCHOCTAW [facility]AL HOSPITALN [facility]ITALUSELE[facility] [address] [facility] [address] HEPATITIS A ANTIBODY (IGG) REACTIVE Non Reactive Jan 05, 2025 02:02 PM [facility] PTH INTACT SERUM Specimen Type: SERUM No comment entered. Ordering Provider: ZANE CAO Report Released Date/Time: Dec 21, 2024 03:37 PM Reporting Lab: [facility]ITALRUAB [facility]ITALTRN [facility]USE[address] [address] Performing Lab: [facility]ITALRCHOCTAW [facility]AL HOSPITALN [facility]ITALUSETS [address] [address] PTH INTACT 57.0 pg/mL 8.7-77.1 Jan 05, 2025 02:02 PM [facility] TESTOSTERONE, TOTAL (WHV) SERUM Specimen Type : SERUM No comment entered. Ordering Provider: ZANE CAO Report Released Date/Time: Dec 21, 2024 03:37 PM Reporting Lab: [facility]ITALRUAB [facility]ITALTRN [facility]ITALUSETS [address] [address] Performing Lab: [facility]ITALRCHOCTAW [facility]AL HOSPITALN [facility]ITALUSELEW[facility] [address] [facility] [address] TESTOSTERONE, TOTAL (WHV) 147.23 ng/dL L 2 20.00-892.00 Jan 05, 2025 02:02 PM [facility]ITALUSELE[facility] LH SERUM Specimen Type: SERUM Comment: PROLACTIN female range:PREMENOPAUSAL 3-27, POSTMENOPAUSAL 2-20 Male range changed from 2-14 to 3-20 on 01/03/13. Ordering Provider: ZANE CAO Report Released Date/Time: Dec 21, 2024 03:37 PM Reporting Lab: [facility] [address] [address] Performing Lab: [facility]ITAL[facility] [address] [facility] [address] LH 2.21 1-9 Jan 05, 2025 02:02 PM [facility]ITALUSELE[facility] FSH SERUM Specimen Type: SERUM No comment entered. Ordering Provider: ZANE CAO Report Released Date/Time: Dec 21, 2024 03:37 PM Reporting Lab: [facility]ITALUSELE[facility] [address] [address] Performing Lab: [facility]ITAL[facility]ETS [facility] [address] [facility] [address] FSH 3.49 1-19 Jan 05, 2025 02:02 PM [facility] PROLACTIN SERUM Specimen Type: SERUM Comment: PROLACTIN female range:PREMENOPAUSAL 3-27, POSTMENOPAUSAL 2-20 Male range changed from 2-14 to 3-20 on 01/03/13. Ordering Provider: ZANE CAO Report Released Date/Time: Dec 21, 2024 03:37 PM Reporting Lab: [facility]ITAL[facility] [address] [address] Performing Lab: [facility]ITAL[facility] [address] [address] PROLACTIN 10.73 ng/mL 3-Jan 05, 2025 02:02 PM [facility]ITALUSELE[facility] HEPATITIS C ANTIBODY (HCV)-ARC SERUM Specimen Type: SERUM Comment: Hep C Ab: No HCV antibody detected. If recent infection is suspected or other evidence suggests HCV infection, consider HCV nucleic acid testing Ordering Provider: ZANE CAO Report Released Date/Time: Dec 21, 2024 03:37 PM Reporting Lab: [facility] [place] [facility] [address] [address] Performing Lab: [facility] [place] [facility] [address] [address] HEPATITIS C ANTIBODY NON-REACTIVE NON-RE ACTIVE Jan 05, 2025 02:02 PM [facility]N [facility]ITAL[facility]ETS [facility] FERRITIN SERUM Specimen Type: SERUM No comment entered. Ordering Provider: ZANE CAO Report Released Date/Time: Dec 21, 2024 03:37 PM Reporting Lab: [facility] [place] [facility] [address] [address] Performing Lab: [place] [facility] [address] [address] FERRITIN 229 ng/mL 20-300 Jan 05, 2025 02:02 PM [facility]ITALUSELE[facility] PSA SERUM Specimen Type: SERUM No comment entered. Ordering Provider: ZANE CAO Report Released Date/Time: Dec 21, 2024 03:37 PM Reporting Lab: [facility] [place] [facility] [address] [address] Performing Lab: [facility] HOSPITALRL [place]N [place] [address] [address] PSA 0.59 ng/mL 0.00-4.00 Jan 05, 2025 02:02 PM [facility] TSH SERUM Specimen Type: SERUM No comment entered. Ordering Provider: ZANE CAO Report Released Date/Time: Dec 21, 2024 03:37 PM Reporting Lab: [facility] [place] [facility] [address] [address] Performing Lab: [place] [address] [address] TSH 0.74 u[IU]/mL 0.35-5.00 Jan 05, 2025 02:02 PM [facility]ITALUSELE[facility] IRON & TIBC PANEL SERUM Specimen Type: SERUM No comment entered. Ordering Provider: ZANE CAO Report Released Date/Time: Dec 21, 2024 03:37 PM Reporting Lab: [facility]OSPITALRL [place] [facility] [address] [address] Performing Lab: [facility]OSPITALRUAB [facility]ITALTRN [facility]ITALUSETS [facility] [address] [address] TIBC 281 ug/dL 204-475 IRON 85 ug/dL 40-160 Transferrin Saturation 30.2 20.0-50.0 Transferrin (TRF) 213 mg/dL 200-360 Jan 05, 2025 02:02 PM [facility] ALBUMIN SERUM Specimen Type: SERUM No comment entered. Ordering Provider: ZANE CAO Report Released Date/Time: Dec 21, 2024 03:37 PM Reporting Lab: [facility]ITALUSELEW[facility] [address] [address] Performing Lab: [facility]ITALUSELEW[facility] [address] [address] ALBUMIN 4.1 g/dL 3.5-5.0 Jan 05, 2025 02:02 PM [facility] LIVER FUNCTION SERUM Specimen Type: SERUM No comment entered. Ordering Provider: ZANE CAO Report Released Date/Time: Dec 21, 2024 03:37 PM Reporting Lab: [facility] [address] [facility] [address] Performing Lab: [facility]ITALUSELEW[facility] [address] [address] PROTEIN,TOTAL 7.9 g/dL 6.0-8.3 ALBUMIN 4.1 g/dL 3.5-5.0 ALKALINE PHOSPHATASE 72 U/L 40-150 AST 18 U/L 5-34 ALT 27 U/L BILIRUBIN, TOTAL 0.3 mg/dL 0.2-1.2 Jan 05, 2025 02:02 PM [facility] LIPID PANEL, NON FASTING SERUM Specimen Type: SERUM No comment entered. Ordering Provider: ZANE CAO Report Released Date/Time: Dec 21, 2024 03:37 PM Reporting Lab: [facility]OSPITALRCHOCTAW GENERAL HOSPITALN [facility]ITALUSETS [facility] [address] [address] Performing Lab: [address] [address] CHOLESTEROL 251 mg/dL H TRIGLYCERIDE 254 mg/dL H 0-150 LDL calculated 157 mg/dL H 0-129 CHOL/HDL 5.8 HDL CHOLESTEROL 43 mg/dL 40-60 Social History: Smoking Status (Most current) and Tobacco Use (All prior to encounter date) This section includes the most current, and the historical, smoking and tobacco- related health factors from the ID facility where the Encounter took place. Current Smoking Status This section includes the most current smoking, or tobacco-related health factor, from the ID facility where the Encounter took place. Date/Time Current Smoking Status Comment Facil ity Jul 07, 2024 03:00 PM [facility] Tobacco Use History This section includes a history of the smoking, or tobacco-related health factors, that were collected on or before the date of the Encounter. The data comes from the ID facility where the Encounter took place. Date/Time Smoking Status/Tobacco Use Comment F acility Jul 07, 2024 03:00 PM VA-[facility]CO QUIT 5 TO < 15 YRS [facility] Jun 01, 2023 03:30 PM [facility] Jun 01, 2023 03:30 PM ID-TOBACCO QUIT 5 TO < 15 YRS [facility] Radiology Reports: +/- 30 days of the [...] the Encounter. The data comes from all ID treatment facilities. Date/Time Radiology Report Provider Source Jan 06, 2025 02:15 PM LDCT LUNG CANCER SCREENING: JAMEELTODD MARTIN [id number] -[id number] M Ex Date: JAN 06, 2025@14:15 Req Phys: ZANE CAO Loc: [facility] LCS CHART CONSULT (Req'g L Img Loc: [facility]/CT Service: Unknown [place] [address] (Case [id number] COMPLETE) LDCT LUNG CANCER SCREENING (CT Detailed) CPT:22246 Reason for Study: Lung Cancer Screen Clinical [...] 06, 2025 Date Verified: JAN 06, 2025 Air Conditioning Technician E-Sig:/ES/MARTÍN MCLEOD JR Report: Study: Lung [...] reviewed. Secondary computer-aided detection with post-processing from [employer] is used. The lack of intravenous contrast [...] Primary Interpreting Staff: MARTÍN MCLEOD JR, Radiologist (Air Conditioning Technician) /MARTÍN STERLING JR [facility] Encounter Notes: All associated encounter notes This section contains the clinical notes associated to the Encounter. Date/Time Encounter Note(s) Provider Source Jan 09, 2025 03:14 PM CLERICAL NOTE: LOCAL TITLE: APPOINTMENT NO SHOW STANDARD TITLE: CLERICAL NOTE DATE OF NOTE: JAN 09, 2025@15:14 ENTRY DATE: JAN 09, 2025@15:14:31 AUTHOR: SALAZAR VELIZ COSIGNER: FARHEEN FINK URGENCY: STATUS: COMPLETED This case is supervised by Dr. Farheen Fink, staff [facility]. Diagnosis, treatment plan, and response to care are reviewed on an ongoing basis in weekly individual supervision meetings. Patient Name: TODD JORGENSEN Patient SSN: [id number] Date and time of Appointment No show : 01/09/25 15:00 PATIENT PHONE - PHONE NUMBER [CELLULAR] - Patient's medical record was reviewed. 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
--- OUTSIDE RECORDS SUMMARY | 2025-01-23 10:00 | XMS_ITS | Encounter Summary ---
Author Name [facility] [facility] [place] Address [address] [place] [address] Care Team Providers Care Manager Rfid Name Role Phone ZANE CAO Primary Care [...] E HEALTH PLAN [facility] [facility] Oct 09, [id number] [phone] HUGEL,DARRICK HAEL PATIENT [place]BS [place] HIGH DEDUCTIBL E HEALTH PLAN [facility] [facility] Oct 09, [id number] HUGEL,DARRICK HAEL PATIENT [place] PREFERRED PROVIDER ORGANIZAT ION (PPO) [facility] [place] [facility] [employer] Oct 09, [id number] [phone] HUGEL,DARRICK HAEL PATIENT [place] PRESCRIPT ION BCBS CAREM [facility]K [facility] Oct 12, 2022 [id number] [phone] HUGEL,DARRICK HAMARCO ANTONIO PATIENT [place] PRESCRIPT ION [facility] [place] [facility] Oct 09, 2022 [id number] [phone] HUGEL,DARRICK HAEL PATIENT CAREMARK ([id number]) PRESCRIPT ION [facility] Oct 12, 2022 [id number] [phone] HUGEL,DARRICK HAEL PATIENT [employer] PRESCRIPT ION [facility] [place] [facility] [employer] Nov 06, 2020 [id number] HUGEL,DARRICK HAEL PATIENT [employer] PRESCRIPT ION [place] Nov 06, 2020 [id number] HUGEL,DARRICK HAEL PATIENT [employer] PRESCRIPT ION [facility] [place] [facility] [employer] Nov 06, 2020 [id number] HUGEL,DARRICK KEENE PATIENT Selected Encounter This section includes the information on record at [place] for the Encounter. Date/Time Encounter Type Encounter Description Reason Provider Source Jan 23, 2025 03:00 PM PSYTX W PT 45 MINUTES [facility] - IND ICD-10-CM F43.12 Post-traumatic stress disorder, chronic BINU ANGUIANO EY M IHE Encounter Template Text not used by [place] Assessments - Encounter Diagnoses This section includes the primary and secondary diagnoses documented for the Encounter. Date/Time Primary/Secondary Diagnosis Diagnosis Name Provider Source Jan 24, 2025 02:31 PM PRIMARY Post-traumatic stress disorder, chronic SALAZAR VELIZ A [place] [facility] Plan of Treatment: Future Appointments (+ 6 months) and Future Tests (+/- 45 days) The Plan of Treatment section includes future care activities for the patient from all [place] treatmentfacilities. This section includes future appointments and future orders which are active, pending or scheduled. Future Appointments This section includes appointments that were scheduled to occur 6 months from the date of the Encounter, up to a maximum of 20 appointments. The data comes from all [place] treatment facilities. Appointment Date/Time Appointment Type Appointme nt Facility Name Feb 06, 2025 03:00 PM AMBULATORY - [facility]CHIATRY [facility] February 20, 2025 03:00 PM AMBULATORY - PSYCHIATRY [facility] March 10, 2025 11:00 AM AMBULATORY - PSYCHIATRY [facility] [place] [facility] Mar 21, 2025 01:00 PM AMBULATORY - PSYCHIATRY [facility] [place] [facility] Apr 03, 2025 03:00 PM AMBULATORY - PSYCHIATRY [facility] Apr 17, 2025 03:00 PM AMBULATORY - PSYCHIATRY [facility] May 10, 2025 03:00 PM AMBULATORY - PSYCHIATRY [facility] [place] [facility] May 29, 2025 03:00 PM AMBULATORY - PSYCHIATRY [facility] [place] [facility] Jun 16, 2025 03:00 PM AMBULATORY - PSYCHIATRY [place] [facility] [place] [facility] Jun 23, 2025 03:00 PM AMBULATORY - PSYCHIATRY [facility] [place] [facility] Jun 30, 2025 11:00 AM AMBULATORY - PSYCHIATRY [facility] [place] [facility] Jul 07, 2025 01:00 PM AMBULATORY - PSYCHIATRY [facility] [place] [facility] Jul 10, 2025 10:30 AM AMBULATORY - MEDICINE [facility] [place] [facility] Active, Pending, and Scheduled Orders This section includes a listing of several types of active, pending, and scheduled orders, including clinic medications orders, diagnostic test orders, procedure orders and consult orders; where the start date of the order is 45 days before the date of the Encounter or 45 days after the date of theEncounter. The data comes from all [place] treatment facilities. Test Date/Time Test Type Test Details Facility Name Jan 19, 2025 12:00 AM Laboratory - Chemistry Order TOTAL TESTOSTERONE BLOOD (SST-SERUM) [facility] [place] [facility] Lab Results: +/- 30 days of the [...] Type Comment Jan 05, 2025 02:02 PM [facility] PT & INR (PROTIME) PLASMA Specimen Type: PLASMA No comment entered. Ordering Provider: ZANE CAO Report Released Date/Time: Dec 21, 2024 03:37 PM Reporting Lab: [address] [address] Performing Lab: [address] [address] INR 1.0 PROTIME 10.8 s 10.0-13.1 Jan 05, 2025 02:02 PM [facility] CERULOPLASMIN SERUM Specimen Type: SERUM No comment entered. Ordering Provider: ZANE CAO Report Released Date/Time: Dec 21, 2024 03:37 PM Reporting Lab: [address] [address] Performing Lab: [facility] [address] [facility] [address] CERULOPLASMIN 27 mg/dL 20-60 Jan 05, 2025 02:02 PM [facility] HEPATITIS B SURFACE ANTIBODY (HBsAb)- SERUM Specimen Type: SERUM No comment entered. Ordering Provider: ZANE CAO Report Released Date/Time: Dec 21, 2024 03:37 PM Reporting Lab: [address] [address] Performing Lab: [facility] Jan 05, 2025 02:02 PM [facility] HEPATITIS B SURFACE ANTIGEN (HBsAg)- SERUM Specimen Type: SERUM Comment: Hep B Surf Ag: Negative for HBsAg. Other markers of Hepatitis B virus are needed to ascertain Hepatitis B infection status. Ordering Provider: ZANE CAO Report Released Date/Time: Dec 21, 2024 03:37 PM Reporting Lab: [address] [address] Performing [facility]: [facility] [address] [facility] [address] HBsAg Non Reactive Non Reactive Jan 05, 2025 02:02 PM [facility] TOSHA SCREEN/TITER SERUM Specimen Type: SERUM No comment entered. Ordering Provider: ZANE CAO Report Released Date/Time: Dec 21, 2024 03:37 PM Reporting Lab: [facility] [address] [facility] [address] Performing Lab: [facility] [address] [facility] [address] TOSHA SCREEN NEG NEG <1:40 Jan 05, 2025 02:02 PM [facility] HEPATITIS A ANTIBODY (IGG) SERUM Specimen Typ e: SERUM Comment: Hepatitis A IgG: A 'Reactive' result indicates previous exposure to Hepatitis A virus through infection or vaccination. Ordering Provider: ZANE CAO Report Released Date/Time: Dec 21, 2024 03:37 PM Reporting Lab: [facility] [address] [facility] [address] Performing Lab: [facility] [address] [facility] [address] HEPATITIS A ANTIBODY (IGG) REACTIVE Non Reactive Jan 05, 2025 02:02 PM [facility] PTH INTACT SERUM Specimen Type: SERUM No comment entered. Ordering Provider: ZANE CAO Report Released Date/Time: Dec 21, 2024 03:37 PM Reporting Lab: [facility] [address] [facility] [address] Performing Lab: [facility] [address] [address] PTH INTACT 57.0 pg/mL 8.7-77.1 Jan 05, 2025 02:02 PM [facility] TESTOSTERONE, TOTAL (WHV) SERUM Specimen Type : SERUM No comment entered. Ordering Provider: ZANE CAO Report Released Date/Time: Dec 21, 2024 03:37 PM Reporting Lab: [facility] [address] [facility] [address] Performing Lab: [facility] [address] [facility] [address] TESTOSTERONE, TOTAL (WHV) 147.23 ng/dL L 2 20.00-892.00 Jan 05, 2025 02:02 PM [facility] LH SERUM Specimen Type: SERUM Comment: PROLACTIN female range:PREMENOPAUSAL 3-27, POSTMENOPAUSAL 2-20 Male range changed from 2-14 to 3-20 on 01/03/13. Ordering Provider: ZANE CAO Report Released Date/Time: Dec 21, 2024 03:37 PM Reporting Lab: [facility] [address] [facility] [address] Performing Lab: [facility] [address] [facility] [address] LH 2.21 1-9 Jan 05, 2025 02:02 PM [facility] FSH SERUM Specimen Type: SERUM No comment entered. Ordering Provider: ZANE CAO Report Released Date/Time: Dec 21, 2024 03:37 PM Reporting Lab: [facility] [address] [facility] [address] Performing Lab: [facility] [address] [facility] [address] FSH 3.49 1-19 Jan 05, 2025 02:02 PM [facility] PROLACTIN SERUM Specimen Type: SERUM Comment: PROLACTIN female range:PREMENOPAUSAL 3-27, POSTMENOPAUSAL 2-20 Male range changed from 2-14 to 3-20 on 01/03/13. Ordering Provider: ZANE CAO Report Released Date/Time: Dec 21, 2024 03:37 PM Reporting Lab: [facility] [address] [facility] [address] Performing Lab: [facility] [address] [facility] [address] PROLACTIN 10.73 ng/mL 3-20 Jan 05, 2025 02:02 PM [facility] HEPATITIS C ANTIBODY (HCV)-ARC SERUM Specimen Type: SERUM Comment: Hep C Ab: No HCV antibody detected. If recent infection is suspected or other evidence suggests HCV infection, consider HCV nucleic acid testing Ordering Provider: ZANE CAO Report Released Date/Time: Dec 21, 2024 03:37 PM Reporting Lab: [facility] [place] [facility] [address] [facility] [address] Performing Lab: [facility]RL [facility] [address] [facility] [address] HEPATITIS C ANTIBODY NON-REACTIVE NON-RE ACTIVE Jan 05, 2025 02:02 PM [facility] FERRITIN SERUM Specimen Type: SERUM No comment entered. Ordering Provider: ZANE CAO Report Released Date/Time: Dec 21, 2024 03:37 PM Reporting Lab: [facility] [place] [facility] [address] [facility] [address] Performing Lab: [facility]N [facility] [address] [facility] [address] FERRITIN 229 ng/mL 20-300 Jan 05, 2025 02:02 PM [facility] PSA SERUM Specimen Type: SERUM No comment entered. Ordering Provider: ZANE CAO Report Released Date/Time: Dec 21, 2024 03:37 PM Reporting Lab: [facility] [place] [facility] [address] [facility] [address] Performing Lab: [facility] TRN [facility] [address] [facility] [address] PSA 0.59 ng/mL 0.00-4.00 Jan 05, 2025 02:02 PM [facility] TSH SERUM Specimen Type: SERUM No comment entered. Ordering Provider: ZANE CAO Report Released Date/Time: Dec 21, 2024 03:37 PM Reporting Lab: [facility] [address] [facility] [address] Performing Lab: [facility] [address] [facility] [address] TSH 0.74 u[IU]/mL 0.35-5.00 Jan 05, 2025 02:02 PM [facility] IRON & TIBC PANEL SERUM Specimen Type: SERUM No comment entered. Ordering Provider: ZANE CAO Report Released Date/Time: Dec 21, 2024 03:37 PM Reporting Lab: [facility] [address] [facility] [address] Performing Lab: [address] [address] TIBC 281 ug/dL 204-475 IRON 85 ug/dL 40-160 Transferrin Saturation 30.2 20.0-50.0 Transferrin (TRF) 213 mg/dL 200-360 Jan 05, 2025 02:02 PM [facility] LIVER FUNCTION SERUM Specimen Type: SERUM No comment entered. Ordering Provider: ZANE CAO Report Released Date/Time: Dec 21, 2024 03:37 PM Reporting Lab: [address] [address] Performing Lab: [address] [address] PROTEIN,TOTAL 7.9 g/dL 6.0-8.3 ALBUMIN 4.1 g/dL 3.5-5.0 ALKALINE PHOSPHATASE 72 U/L 40-150 AST 18 U/L 5-34 ALT 27 U/L BILIRUBIN, TOTAL 0.3 mg/dL 0.2-1.2 Jan 05, 2025 02:02 PM [facility] ALBUMIN SERUM Specimen Type: SERUM No comment entered. Ordering Provider: ZANE CAO Report Released Date/Time: Dec 21, 2024 03:37 PM Reporting Lab: [address] [address] Performing Lab: [address] [address] ALBUMIN 4.1 g/dL 3.5-5.0 Jan 05, 2025 02:02 PM [facility] LIPID PANEL, NON FASTING SERUM Specimen Type: SERUM No comment entered. Ordering Provider: ZANE CAO Report Released Date/Time: Dec 21, 2024 03:37 PM Reporting Lab: [facility] [address] [facility] [address] Performing Lab: [facility] [address] [facility] [address] CHOLESTEROL 251 mg/dL H TRIGLYCERIDE 254 mg/dL H 0-150 LDL calculated 157 mg/dL H 0-129 CHOL/HDL 5.8 HDL CHOLESTEROL 43 mg/dL 40-60 Social History: Smoking Status (Most current) and Tobacco Use (All prior to encounter date) This section includes the most current, and the historical, smoking and tobacco- related health factors from the [place] facility where the Encounter took place. Current Smoking Status This section includes the most current smoking, or tobacco-related health factor, from the [place] facility where the Encounter took place. Date/Time Current Smoking Status Comment Facil ity Jul 07, 2024 03:00 PM VA-TOBACCO FORMER USER [facility] Tobacco Use History This section includes a history of the smoking, or tobacco-related health factors, that were collected on or before the date of the Encounter. The data comes from the [place] facility where the Encounter took place. Date/Time Smoking Status/Tobacco Use Comment F acility Jul 07, 2024 03:00 PM VA-TOBACCO QUIT 5 TO < 15 YRS [facility] Jun 01, 2023 03:30 PM [facility] Jun 01, 2023 03:30 PM VA-TOBACCO QUIT 5 TO < 15 YRS [facility] Radiology Reports: +/- 30 days of [...] the Encounter. The data comes from all [place] treatment facilities. Date/Time Radiology Report Provider Source Jan 06, 2025 02:15 PM LDCT LUNG CANCER SCREENING: TODD JORGENSEN [id number] -[id number] M Exm Date: JAN 06, 2025@14:15 Req Phys: ZANE CAO Loc: [facility] CHART CONSULT (Rethony'marbella Rubio Img Loc: [facility]/CT Service: Unknown [facility] MG, DANIEL [id number] (Case [id number] COMPLETE) LDCT LUNG CANCER SCREENING (CT Detailed) CPT:50284 Reason for Study: Lung Cancer Screen Clinical [...] 06, 2025 Date Verified: JAN 06, 2025 Settlement Technician E-Sig:/ES/MARTÍN MCLEOD JR Report: Study: Lung [...] reviewed. Secondary computer-aided detection with post-processing from [employer] is used. The lack of intravenous contrast [...] Primary Interpreting Staff: MARTÍN MCLEOD JR, Radiologist (Settlement Technician) /MARTÍN STERLING JR [facility] Encounter Notes: All associated encounter notes This section contains the clinical notes associated to the Encounter. Date/Time Encounter Note(s) Provider Source Apr 11, 2025 04:19 PM MENTAL HEALTH VICKY TMENT PLAN NOTE: LOCAL TITLE: MH TREATMENT PLAN STANDARD TITLE: MENTAL HEALTH TREATMENT PLAN NOTE DATE OF NOTE: APR 11, 2025@16:19:06 ENTRY DATE: APR 11, 2025@16:19:37 AUTHOR: SALAZAR VELIZ COSIGNER: FARHEEN ANGUIANO URGENCY: STATUS: COMPLETED MH TREATMENT PLAN - 1 Apr, 2025 @ 04:19PM Visit Date: Jan, @ 15:00 [facility] PS[facility] 10 MH HEAVY EQUIPMENT SALES MANAGER: MIRANDA BROWN / MG Rangel STRENGTHS AND ABILITIES: Has supportive family and/or friends Expressed desire/motivation for change NEEDS: Lucid and aware of current situation BARRIERS: Chronic psychiatric symptoms, without remission TREATMENT PLAN: Problem: Social anxiety: has been experiencing a pattern of anxiety, including the following symptoms/behaviors: excessive worry in social situations, avoidance of social situations, and physical symptoms (e.g., heart racing, sweating, muscle tension). Status: COMPLETED Comments: Terminated therapy with the provider who created this treatment plan. 04/11/2025 (by SALAZAR VELIZ) Comments: Social Anxiety: Fithian has been experiencing a pattern of anxiety including the following symptoms/behaviors, excessive worry in social situations, avoidance of social situations, negative thoughts about himself as related to social skills, ruminative thoughts about past social encounters. 06/06/2024 (by CORAL ARCINIEGA) Goal: would like to reduce anxiety and feel more comfortable in social situations. Status: COMPLETED Comments: Completed by completing problem. 04/11/2025 (by SALAZAR VELIZ) Comments: 06/06/24 Update: Fithian would like to reduce anxiety, feel more comfortable, and develop skills, for social situations. Fithian reported a goal to further develop social relationships with friends, co-workers, and family. 06/06/2024 (by CORAL ARCINIEGA) Objective: will learn improved self-awareness by identifying specific triggers for anxiety in therapy. Progress will be measured through self-report and social anxiety symptom questionnaires Status: COMPLETED Comments: Completed by completing problem. 04/11/2025 (by SALAZAR VELIZ) Projected Target: 08/29/2024 Intervention: will achieve this goal and objective through individual psychotherapy, including emotional processing and CBT (e.g., identifying and challenging unhelpful thoughts). Status: COMPLETED Comments: Completed by completing problem. 04/11/2025 (by SALAZAR VELIZ) Discipline: [facility] Time Frame: One time per week for 12 weeks Providers: CORAL ARCINIEGA: DISTRICT SUPERVISOR FARHEEN ANGUIANO: PSYCHOLOGIST Problem: Depression: Fithian has been experiencing depressive symptoms including: depressed mood, anhedonia, lethargy, trouble falling asleep, and feeling bad about himself. Status: COMPLETED Comments: Terminated therapy with the provider who created this treatment plan. 04/11/2025 (by SALAZAR VELIZ) Goal: would like to decrease depression and improve mood. Status: COMPLETED Comments: Completed by completing problem. 04/11/2025 (by SALAZAR VELIZ) Objective: Through medications and psychotherapy, 's depressed mood will lessen in frequency and intensity. Status: COMPLETED Comments: Completed by completing problem. 04/11/2025 (by SALAZAR VELIZ) Projected Target: 08/29/2024 Intervention: Individual psychotherapy-CBT. Status: COMPLETED Comments: Completed by completing problem. 04/11/2025 (by SALAZAR VELIZ) Discipline: Mental Health Clinic Time Frame: One time per week for 12 weeks Providers: CORAL ARCINIEGA: DISTRICT SUPERVISOR FARHEEN ANGUIANO: PSYCHOLOGIST Intervention: Medication management Status: COMPLETED Comments: Completed by completing problem. 04/11/2025 (by SALAZAR VELIZ) Discipline: [facility] Health Clinic Time Frame: Five times per year for 1 year Providers: MAIN OZUNA: CLINICAL LIBRARIAN HELPER Problem: has not been able to recover from the traumatic event(s) they experienced, as evidenced by concentration difficulties, avoidance, mood issues. Status: ACTIVE Goal: Increase Fithian's ability to make sense of traumatic experiences, and feel the natural emotions associated with them. Status: ACTIVE Objective: will experience fewer and less intense symptoms of PTSD as measured by a decrease of greater than or equal to 10 points on the PCL. Status: ACTIVE Projected Target: 04/11/2026 Intervention: 12 sessions of Cognitive Processing Therapy Status: ACTIVE Discipline: Mental Health Clinic Time Frame: One time every 2 weeks for 1 year Providers: SALAZAR VELIZ: PSYCHOLOGIST DISCIPLINE: Mental Health Clinic Entered Treatment: 04/11/2025 @ 04:19PM Review Date: 06/06/2025 Anticipated Discharge: None PATIENT ACTION: PATIENT AGREED TO PLAN DISCUSSED. FAMILY ACTION: PATIENT DECLINED FAMILY PARTICIPATION. INTERDISCIPLINARY TEAM: MAIN OZUNA: CLINICAL LIBRARIAN HELPER FARHEEN ANGUIANO: PSYCHOLOGIST CORAL ARCINIEGA: DISTRICT SUPERVISOR SALAZAR VELIZ: PSYCHOLOGIST COLLABORATION: Other: Supervision: This case is supervised by Dr. Farheen Anguiano, Staff Psychologist. Diagnosis, treatment plan, and response to care are reviewed in standard 1-hour or more individual supervision meetings. COMMUNICATION: Relevant treatment options, including evidence-based interventions, were considered and discussed with the . YES A copy of the treatment plan was given to the . NO Risks, benefits, and potential complications were discussed with the Fithian. YES /tanmay/ SALAZAR VELIZ, PHD [facility] Post-Doctoral Psychology Trainee Signed: 04/11/2025 16:19 /es/ FARHEEN ANGUIANO PSYD CLINICAL PSYCHOLOGIST - [facility]INIC Cosigned: 04/11/2025 16:33 Receipt Acknowledged By: * AWAITING SIGNATURE * MIRANDA BROWN 04/12/2025 08:08 /es/ Main Ozuna, Jason Clinical Pharmacist Practitioner 04/12/2025 12:07 /es/ CORAL Weaver Hoop Punch Operator Helper SALAZAR VELIZ [facility] [place] [facility] Jan 23, 2025 04:30 PM TELEHEALTH NOTE: LOCAL TITLE: SD VIDEO CONNECT PSYCHOLOGY NOTE STANDARD TITLE: TELEHEALTH NOTE DATE OF NOTE: JAN 23, 2025@16:30 ENTRY DATE: JAN 23, 2025@16:30:45 AUTHOR: SALAZAR VELIZ EXP COSIGNER: FARHEEN ANGUIANO URGENCY: STATUS: COMPLETED This case is supervised by Dr. Farheen Anguiano, staff psychologist in the Mental Health Clinic. Diagnosis, treatment plan, and response to care are reviewed on an ongoing basis in weekly individual supervision meetings. This was a 50 minute appointment in the treatment of issues related to PTSD. DATA: The shared that he was very upset because his youngest son (who is 30 years old) is dying. He shared that his son has a variety of complex medical issues, including renal failure. He was reportedly recently placed in the hospital due to a heart attack. We processed the impact of this event on the Fithian. We discussed their estrangement over the course of the past 3 years and the Fithian's previous efforts to help his son with healthy behavior change. We explored the Fithian's needs/desires in this situation, identfying his desire to have a relationship with his son. We explored how he has attempted this in the past, and the feelings of rejection these efforts sometimes evoke. We discussed making space for grief. ASSESSMENT: The Fithian was on time to the appointment and was engaged. Eye contact was minimal. The was noted to laugh and smile while discussing difficult content. Grooming and dress were WNL. Gross motor function was WNL. Mood was anxious and affect was congruent and varied appropriately. Speech was slightly pressured, and content was tangental, but otherwise was WNL Insight and judgement were intact. There was no evidence of A/VH or thought disorder. No indication of any increase in SI or emergent risk. PLAN: The will RTC for individual therapy with Dr. Salazar Veliz on 02/06/2025. [place] [employer] (VV) Standard Documentation [facility] Clinician Resources Only: E911 (Emergency Call Relay Center): [phone] National Veterans Crisis Line - 988 then press #1. [place] Suicide Coordinator [phone], Ext. [phone]; Back-up Ext. [phone] [place] Police, [place] [phone] Introduction: Visit is being conducted by [place] [employer]. [place] identified with 2 identifiers: [X] Full Name [ ] Date of [ ] VA ID Card Emergency Plan: [place] confirmed and/or provided the following information in case of emergency or technology failure. PATIENT PHONE - PHONE NUMBER [CELLULAR] - Is patient phone number correct, if not, enter below: 's phone number: TODD JORGENSEN [address], [place], [address] 's present location and address for appointment: Home address above 's emergency contact name and phone number: Emergency Contact Information: E-Cont.: REJI MAYERS Relation Type: UNRELATED FRIEND/OTHER Relation Note: PARTNER [address] [place] [address] [facility] Work Phone: UNSPECIFIED reported that location is private and safe: Yes Informed Consent: informed of the risks and benefits of Telehealth video care. has the right to refuse video services. If refuses video visit, a yzhz-bi-tkta visit will be scheduled. verbalized consent for this video visit: Yes [place] provided consent for any other persons present for visit: N/A If yes, who and relationship to patient: Secure visit: Visit was locked for security and privacy:Yes Does this visit involve laterality/specific side of body? N/A /es/ SALAZAR VELIZ, PHD [facility] Post-Doctoral Psychology Trainee Signed: 01/24/2025 14:31 /tanmay/ FARHEEN ANGUIANO PSYD CLINICAL PSYCHOLOGIST - [facility] Cosigned: 01/24/2025 15:37 SALAZAR VELIZ [place] [facility]
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
--- OUTSIDE RECORDS SUMMARY | 2025-06-16 10:00 | XMS_ITS | Encounter Summary ---
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 Oct 09, [id number] [phone] HUGEL,DARRICK HAEL PATIENT [place] PRESCRIPT ION BCBS [facility] [facility] Oct 12, 2022 [id number] HUGEL,DARRICK KEENE PATIENT [place] PRESCRIPT ION [place] [facility] Oct 09, 2022 [id number] [phone] HUGEL,DARRICK KEENE PATIENT [place] ([id number]) PRESCRIPT ION [facility] Oct 12, 2022 [id number] [phone] HUGEL,DARRICK HAEL PATIENT [employer] PRESCRIPT ION [facility] [place] [facility] Nov 06, 2020 [id number] HUGEL,DARRICK HAEL PATIENT [employer] PRESCRIPT ION [facility] [place] [facility] [employer] Nov 06, 2020 [id number] HUGEL,DARRICK HAEL PATIENT [employer] [employer] PRESCRIPT I[place] Nov 06, 2020 [id number] HUGEL,DARRICK KEENE PATIENT Selected Encounter This section includes the information on record at [place] for the Encounter. Date/Time Encounter Type Encounter Description Reason Provider Source Jun 16, 2025 03:00 PM PSYTX W PT 45 MINUTES [facility] ICD-10-CM F43.12 Post-traumatic stress disorder, chronic SALAZAR VELIZ E Encounter Template Text not used by [place] Assessments - Encounter Diagnoses This section includes the primary and secondary diagnoses documented for the Encounter. Date/Time Primary/Secondary Diagnosis Diagnosis Name Provider Source Jun 16, 2025 03:57 PM PRIMARY Post-traumatic stress disorder, chronic SALAZAR VELIZ [place] [facility] [place] [facility] Plan of Treatment: Future Appointments (+ 6 months) and Future Tests (+/- 45 days) The Plan of Treatment section includes future care activities for the patient from all [place] treatmentfacilities. This section includes future appointments and future orders which are active, pending or scheduled. Future Appointments This section includes appointments that were scheduled to occur 6 months from the date of the Encounter, up to a maximum of 20 appointments. The data comes from all [place] treatment facilities. Appointment Date/Time Appointment Type Appointme nt Facility Name Jun 23, 2025 03:00 PM AMBULATORY - PS[facility]CHIATRY [facility] [place] [facility] Jun 30, 2025 11:00 AM AMBULATORY - PS[facility]CHIATRY [facility] [place] [facility] Jul 07, 2025 01:00 PM AMBULATORY - PS[facility]CHIATRY [facility] [place] [facility] Jul 10, 2025 10:30 AM AMBULATORY - MEDICINE [facility] [place] [facility] Jul 26, 2025 10:00 AM AMBULATORY - PSYCHIATRY [facility] [place] [facility] Jul 26, 2025 03:00 PM AMBULATORY - MEDICINE [facility] [place] [facility] Aug 15, 2025 02:00 PM AMBULATORY - PS[facility]CHIATRY [facility] [place] [facility] Aug 24, 2025 03:00 PM AMBULATORY - PS[facility]CHIATRY [facility] [place] [facility] Aug 31, 2025 09:30 AM AMBULATORY - PS[facility]CHIATRY [facility] [place] [facility] Sep 05, 2025 03:00 PM AMBULATORY - PSYCHIATRY [facility] [place] [facility] Sep 14, 2025 01:00 PM AMBULATORY - PS[facility]CHIATRY [facility] [place] [facility] Sep 22, 2025 03:00 PM AMBULATORY - PS[facility]CHIATRY [facility] [place] [facility] Sep 29, 2025 03:00 PM AMBULATORY - PS[facility]CHIATRY [facility] [place] [facility] Oct 06, 2025 08:30 PM AMBULATORY - MEDICINE [facility] [place] [facility] Oct 13, 2025 03:00 PM AMBULATORY - PSYCHIATRY [facility] [place] [facility] Active, Pending, and Scheduled Orders This section includes a listing of several types of active, pending, and scheduled orders, including clinic medications orders, diagnostic test orders, procedure orders and consult orders; where the start date of the order is 45 days before the date of the Encounter or 45 days after the date of theEncounter. The data comes from all [place] treatment facilities. Test Date/Time Test Type Test Details Facility Name Jul 26, 2025 12:00 AM Laboratory - Chemistry Order TOTAL TESTOSTERONE BLOOD (SST-SERUM) [facility] [place] [facility] Lab Results: +/- 30 days of the encounter This section includes the Chemistry and Hematology Lab Results on record with [place] for the patient. Radiology Reports and Pathology Reports are provided separately, in subsequent sections. Lab Results This section contains the Chemistry/Hematology Results that were resulted 30 days before or 30 daysafter the date of the Encounter. Date/Time Source Result Type Result - Unit Interpretation Reference Range Specimen Type Comment Jun 30, 2025 12:11 PM [facility] CBC BLOOD Specimen Type: BLOOD No comment entered. Ordering Provider: ZANE CAO Report Released Date/Time: Jun 23, 2025 04:31 PM Reporting Lab: [address] [address] Performing Lab: [address] [address] WBC 7.54 10*3/uL 4.50-11.00 RBC 5.18 10*6/uL 4.23-5.66 HGB 15.5 g/dL 12.8-17 HCT 45.6 39.2-50.4 MCV 88.0 fL 82-99 MCHC 34.0 g/dL 30.8-35.1 PLT 344 10*3/uL 140-360 MPV 9.4 fL 9.2-12.4 RDW-CV 13.0 12.0-16.0 MCH 29.9 pg 26.2-32.6 Jun 30, 2025 12:11 PM [facility] BASIC METABOLIC PANEL (non-fasting) SERUM Spe cimen Type: SERUM No comment entered. Ordering Provider: ZANE CAO Report Released Date/Time: Jun 23, 2025 04:31 PM Reporting Lab: [address] [address] Performing Lab: [address] [address] UREA NITROGEN 15 mg/dL 8-26 GLUCOSE 85 mg/dL 65-100 SODIUM 142 mmol/L 136-145 POTASSIUM 4.3 mmol/L 3.5-5.1 CHLORIDE 102 mmol/L 98-107 CO2 30 meq/L H 22-29 CALCIUM 9.8 mg/dL 8.4-10.2 CREATININE, Serum 0.87 mg/dL 0.72-1.25 eGFR(CKD-EPI 2020) >90 mL/min >60 ANION GAP 10 meq/L 6-16 Jun 30, 2025 12:11 PM [facility] LIPID PANEL, NON FASTING SERUM Specimen Type: SERUM No comment entered. Ordering Provider: ZANE CAO Report Released Date/Time: Jun 23, 2025 04:31 PM Reporting Lab: [facility] [address] [address] Performing Lab: [facility] [address] [facility] [address] CHOLESTEROL 217 mg/dL H TRIGLYCERIDE 197 mg/dL H 0-150 LDL calculated 135 mg/dL H 0-129 CHOL/HDL 5.0 HDL CHOLESTEROL 43 mg/dL >40 Jun 30, 2025 12:11 PM [facility] [place] TSH SERUM Specimen Type: SERUM No comment entered. Ordering Provider: ZANE CAO Report Released Date/Time: Jun 23, 2025 04:31 PM Reporting Lab: [facility] [address] [facility] [address] Performing Lab: [facility] [place] [address] [facility] [address] TSH 1.55 u[IU]/mL 0.35-4.94 Jun 30, 2025 12:11 PM [facility] PSA SERUM Specimen Type: SERUM No comment entered. Ordering Provider: ZANE CAO Report Released Date/Time: Jun 23, 2025 04:31 PM Reporting Lab: [facility] [address] [facility] [address] Performing Lab: [facility] [address] [facility] [address] PSA 0.9 ng/mL 0-4 Jun 30, 2025 12:11 PM [facility] [place] LIVER FUNCTION SERUM Specimen Type: SERUM No comment entered. Ordering Provider: ZANE CAO Report Released Date/Time: Jun 23, 2025 04:31 PM Reporting Lab: [facility] [address] [address] Performing Lab: [facility] [address] [facility] [address] PROTEIN,TOTAL 7.6 g/dL 6.4-8.3 ALBUMIN 4.9 g/dL 3.5-5.2 ALKALINE PHOSPHATASE 81 U/L 40-150 AST 21 U/L 5-34 ALT 30 U/L 0-55 BILIRUBIN, TOTAL 0.3 mg/dL 0.2-1.2 Social History: Smoking Status (Most current) and Tobacco Use (All prior to encounter date) This section includes the most current, and the historical, smoking and tobacco- related health factors from the NE facility where the Encounter took place. Current Smoking Status This section includes the most current smoking, or tobacco-related health factor, from the NE facility where the Encounter took place. Date/Time Current Smoking Status Comment Henrietta ity Jul 07, 2024 03:00 PM NE-TOBACCO QUIT 5 TO < 15 YRS [facility] Tobacco Use History This section includes a history of the smoking, or tobacco-related health factors, that were collected on or before the date of the Encounter. The data comes from the NE facility where the Encounter took place. Date/Time Smoking Status/Tobacco Use Comment F acility Jul 07, 2024 03:00 PM NE-TOBACCO QUIT 5 TO < 15 YRS [facility] Jun 01, 2023 03:30 PM VA-TOBACCO FORMER USER [facility] Jun 01, 2023 03:30 PM VA-TOBACCO QUIT 5 TO < 15 YRS [facility] Encounter Notes: All associated encounter notes This section contains the clinical notes associated to the Encounter. Date/Time Encounter Note(s) Provider Source Jun 16, 2025 03:55 PM MENTAL HEALTH NOTE : LOCAL TITLE: CPT PTSD THERAPY NOTE STANDARD TITLE: MENTAL HEALTH NOTE DATE OF NOTE: JUN 16, 2025@15:55 ENTRY DATE: JUN 16, 2025@15:55:28 AUTHOR: SALAZAR VELIZ COSIGNER: URGENCY: STATUS: COMPLETED Cognitive Processing Therapy: A-B-C Worksheet Session Time in session (in minutes): 60 SESSION NUMBER: 6 SESSION FORMAT Azfs-vp-jvpa session DIAGNOSIS: Primary (focus of treatment): PTSD ASSESSMENT: RISK INFORMATION No evidence of any SI/HI MENTAL STATUS/BEHAVIORAL OBSERVATIONS The was on time to the appointment and was engaged. Grooming and dress were WNL. Gross motor function was WNL. Mood was anxious and affect was congruent and varied appropriately. Speech was normal in rate, tone and prosody. Insight and judgement were intact. There was no evidence of A/VH or thought disorder. SESSION CONTENT: The Katy completed the Thoughts and Feelings Session of the Cognitive Processing Therapy (CPT) for PTSD. The following therapy components were addressed: -Therapist reviewed homework (A-B-C Worksheets) with Katy, and helped further differentiate between thoughts and feelings. -Discussed difficult realization regarding past relationship with his son and applied insights from ABC worksheets to them. PRACTICE ASSIGNMENT -Therapist asked Katy to continue using the A-B-C Worksheets, completing one each day and to complete the first trauma narrative. COLLABORATION The degree of collaboration between the and the therapist in the current session was medium. Description of collaboration in this session: was moderately collaborative. PLAN Next session planned for agreed upon date/time of: 06/23/2025 /tanmay/ SALAZAR VELIZ, PHD Psychologist Signed: 06/16/2025 15:57 SALAZAR VELIZ [facility] Jun 14, 2025 09:24 AM MENTAL HEALTH DIAG NOSTIC STUDY NOTE: LOCAL TITLE: MENTAL HEALTH DIAGNOSTIC STUDY STANDARD TITLE: MENTAL HEALTH DIAGNOSTIC STUDY NOTE DATE OF NOTE: JUN 14, 2025@09:24:28 ENTRY DATE: JUN 14, 2025@09:24:28 AUTHOR: SALAZAR VELIZ EXP COSIGNER: URGENCY: STATUS: COMPLETED MENTAL HEALTH DIAGNOSTIC STUDY Has ADDENDA Assessments were sent to the Katy via text/email. These assessments were completed by TODD JORGENSEN on their own device on 2025 4:50:29 PM. PATIENT HEALTH QUESTIONNAIRE-9 (PHQ-9) The patient reported symptoms consistent with a major depressive episode. The patient answered the following questions as indicated: Over the last two weeks, how often have you been bothered by any of the following problems: 1. Little interest or pleasure in doing things: More than half the days 2. Feeling down, depressed or hopeless: More than half the days 3. Trouble falling or staying asleep or sleeping too much: More than half the days 4. Feeling tired or having little energy: Nearly every day 5. Poor appetite or over-eating: More than half the days 6. Feeling bad about yourself - or that you are a failure, or have let yourself or your family down: Several Days 7. Trouble concentrating on things, such as reading the newspaper or watching television: More than half the days 8. Moving or speaking so slowly that other people could have noticed. Or the opposite - being so fidgety or restless that you have been moving around a lot more than usual: More than half the days 9. Thoughts that you would be better off , or of hurting yourself in some way: Several Days PHQ-9 total score = 17 1-4 = minimal symptoms 5-9= mild symptoms 10-14= moderate symptoms 15-19= moderately severe symptoms 20-27= severe depressive symptoms How difficult have these problems made it for you to do work, difficult to work, take care of things at home, or get along with others: somewhat. PHQ-9 Total Score (past 180 days): 2025 17 12/26/2024 18 PTSD CHECKLIST (PCL-5) - WEEKLY The patient answered the following questions as indicated: In the past week, how much were you bothered by: 1. Repeated, disturbing, and unwanted memories of the stressful experience?: Moderately 2. Repeated, disturbing dreams of the stressful experience?: A little bit 3. Suddenly feeling or acting as if the stressful experience were actually happening again (as if you were actually back there reliving it)?: A little bit 4. Feeling very upset when something reminded you of the stressful experience?: Moderately 5. Having strong physical reactions when something reminded you of the stressful experience (for example, heart pounding, trouble breathing, sweating)?: Moderately 6. Avoiding memories, thoughts, or feelings related to the stressful experience?: Quite a bit 7. Avoiding external reminders of the stressful experience (for example, people, places, conversations, activities, objects, or situations)?: A little bit 8. Trouble remembering important parts of the stressful experience?: Not at all 9. Having strong negative beliefs about yourself, other people, or the world (for example, having thoughts such as: I am bad, there is something seriously wrong with me, no one can be trusted, the world is completely dangerous)?: Quite a bit 10. Blaming yourself or someone else for the stressful experience or what happened after it?: Moderately 11. Having strong negative feelings such as fear, horror, anger, guilt, or shame?: Moderately 12. Loss of interest in activities that you used to enjoy?: Quite a bit 13. Feeling distant or cut off from other people?: Moderately 14. Trouble experiencing positive feelings (for example, being unable to feel happiness or have loving feelings for people close to you)?: A little bit 15. Irritable behavior, angry outbursts, or acting aggressively?: Quite a bit 16. Taking too many risks or doing things that could cause you harm?: A little bit 17. Being 'superalert' or watchful or on guard?: Quite a bit 18. Feeling jumpy or easily startled?: Extremely 19. Having difficulty concentrating?: Moderately 20. Trouble falling or staying asleep?: Moderately PCL-5 total score = 40 This measure assesses an individual's perception of the distress associated with possible PTSD symptoms. It is not used to diagnose PTSD. Symptoms are rated from 0-4 in terms of distress they cause the individual. Scores that are greater than or equal to 31-33 suggest that the may meet the criteria for a PTSD diagnosis. However, it is important to use caution when using this cutoff since it is possible for some Veterans with scores lower than 31-33 to meet criteria for PTSD. Additional testing using a structured diagnostic interview, such as the Clinician Administered PTSD Scale for DSM-5, is recommended to confirm diagnostic status. /tanmay/ SALAZAR VELIZ, PHD Psychologist Signed: 06/15/2025 12:25 06/15/2025 ADDENDUM STATUS: COMPLETED Provider followed up on questionnaire and did a brief risk assessment. Katy denied any SI plan or intent and stated his intention to be in our appointment tomorrow. /donald VELIZ, PHD Psychologist Signed: 06/15/2025 12:25 SALAZAR VELIZ [facility]
--- OUTSIDE RECORDS SUMMARY | 2025-06-30 06:00 | XMS_ITS | Encounter Summary ---
Author Name [facility] [place] [facility] [place] [facility] [facility] [place] Address [address] [place] [address] Care Team Providers Care Pta Name Role Phone ZANE CAO Primary Care [...] HEALTH PLAN [facility] [place] [facility] Oct 09, [id number] HUGEL,DARRICK HAEL PATIENT [place] HIGH DEDUCTIBL E HEALTH PLAN [facility] [facility] Oct 09, [id number] HUGEL,DARRICK HAEL PATIENT [place] OF [place] PREFERRED PROVIDER ORGANIZAT ION (PPO) [facility] [place] [facility] [employer] Oct 09, [id number] [phone] HUGEL,DARRICK HAEL PATIENT [place] PRESCRIPT ION BCBS [facility] Oct 12, 2022 [id number] HUGEL,DARRICK KEENE PATIENT [place] PRESCRIPT ION [facility] [place] [facility] Oct 09, 2022 [id number] [id number] HUGEL,DARRICK KEENE PATIENT [place] ([id number]) PRESCRIPT ION [facility] Oct 12, 2022 [id number] HUGEL,DARRICK HAEL PATIENT [employer] PRESCRIPT ION [facility] Nov 06, 2020 [id number] HUGEL,DARRICK HAEL PATIENT [employer] PRESCRIPT ION [place] Nov 06, 2020 [id number] HUGEL,DARRICK HAEL PATIENT [employer] PRESCRIPT ION [facility] [employer] [facility] [employer] Nov 06, 2020 [id number] HUGEL,DARRICK KEENE PATIENT Selected Encounter This section includes the information on record at [place] for the Encounter. Date/Time Encounter Type Encounter Description Reason Provider Source Jun 30, 2025 11:00 AM PSYTX W PT 45 MINUTES [facility] - IND ICD-10-CM F43.12 Post-traumatic stress disorder, chronic RONAN VELIZ [facility] Encounter Template Text not used by [place] Assessments - Encounter Diagnoses This section includes the primary and secondary diagnoses documented for the Encounter. Date/Time Primary/Secondary Diagnosis Diagnosis Name Provider Source Jun 30, 2025 02:27 PM PRIMARY Post-traumatic stress disorder, chronic [facility]AN VELIZ [facility] [place] [facility] Jun 30, 2025 02:27 PM SECONDARY Attention-deficit hyperactivity disorder, combined type RONAN VELIZ [facility] [place] [facility] Plan of Treatment: Future Appointments (+ 6 months) and Future Tests (+/- 45 days) The Plan of Treatment section includes future care activities for the patient from all [place] treatmentfacilities. This section includes future appointments and future orders which are active, pending or scheduled. Future Appointments This section includes appointments that were scheduled to occur 6 months from the date of the Encounter, up to a maximum of 20 appointments. The data comes from all [facility]. Appointment Date/Time Appointment Type Appointme nt Facility Name Jul 07, 2025 01:00 PM AMBULATORY - PS[place]CHIATRY [place] [facility] [place] [facility] Jul 10, 2025 10:30 AM AMBULATORY - MEDICINE [place] [facility] [place] [facility] Jul 26, 2025 10:00 AM AMBULATORY - PSYCHIATRY [place] [facility] [place] [facility] Jul 26, 2025 03:00 PM AMBULATORY - MEDICINE [place] [facility] [place] [facility] Aug 15, 2025 02:00 PM AMBULATORY - PSYCHIATRY [place] [facility] [place] [facility] Aug 24, 2025 03:00 PM AMBULATORY - PSYCHIATRY [place] [facility] [place] [facility] Aug 31, 2025 09:30 AM AMBULATORY - PSYCHIATRY [facility] [place] [facility] Sep 05, 2025 03:00 PM AMBULATORY - PSYCHIATRY [facility] [place] [facility] Sep 14, 2025 01:00 PM AMBULATORY - PSYCHIATRY [facility] [place] [facility] Sep 22, 2025 03:00 PM AMBULATORY - PSYCHIATRY [facility] [place] [facility] Sep 29, 2025 03:00 PM AMBULATORY - PSYCHIATRY [facility] [place] [facility] Oct 06, 2025 08:30 PM AMBULATORY - MEDICINE [place] [facility] [place] [facility] Oct 13, 2025 03:00 PM AMBULATORY - PSYCHIATRY [place] [facility] [place] [facility] Active, Pending, and Scheduled Orders This section includes a listing of several types of active, pending, and scheduled orders, including clinic medications orders, diagnostic test orders, procedure orders and consult orders; where the start date of the order is 45 days before the date of the Encounter or 45 days after the date of theEncounter. The data comes from all [facility]. Test Date/Time Test Type Test Details Facility Name Jul 26, 2025 12:00 AM Laboratory - Chemistry Order TOTAL TESTOSTERONE BLOOD (SST-SERUM) [facility] [place] [facility] Lab Results: +/- 30 days of [...] Type Comment Jun 30, 2025 12:11 PM [facility] LIPID PANEL, NON FASTING SERUM Specimen Type: SERUM No comment entered. Ordering Provider: ZANE CAO Report Released Date/Time: Jun 23, 2025 04:31 PM Reporting Lab: [facility] [address] [facility] [address] Performing Lab: [address] [address] CHOLESTEROL 217 mg/dL H TRIGLYCERIDE 197 mg/dL H 0-150 LDL calculated 135 mg/dL H 0-129 CHOL/HDL 5.0 HDL CHOLESTEROL 43 mg/dL >40 Jun 30, 2025 12:11 PM [facility] BASIC METABOLIC PANEL (non-fasting) SERUM Spe cimen Type: SERUM No comment entered. Ordering Provider: ZANE CAO Report Released Date/Time: Jun 23, 2025 04:31 PM Reporting Lab: [facility] [address] [facility] [address] Performing Lab: [address] [address] UREA NITROGEN 15 mg/dL 8-26 GLUCOSE 85 mg/dL 65-100 SODIUM 142 mmol/L 136-145 POTASSIUM 4.3 mmol/L 3.5-5.1 CHLORIDE 102 mmol/L 98-107 CO2 30 meq/L H 22-29 CALCIUM 9.8 mg/dL 8.4-10.2 CREATININE, Serum 0.87 mg/dL 0.72-1.25 eGFR(CKD-EPI 2020) >90 mL/min >60 ANION GAP 10 meq/L 6-16 Jun 30, 2025 12:11 PM [facility] CBC BLOOD Specimen Type: BLOOD No comment entered. Ordering Provider: ZANE CAO Report Released Date/Time: Jun 23, 2025 04:31 PM Reporting Lab: [place] [address] [facility] [address] Performing Lab: [facility] [address] [facility] [address] WBC 7.54 10*3/uL 4.50-11.00 RBC 5.18 10*6/uL 4.23-5.66 HGB 15.5 g/dL 12.8-17 HCT 45.6 39.2-50.4 MCV 88.0 fL 82-99 MCHC 34.0 g/dL 30.8-35.1 PLT 344 10*3/uL 140-360 MPV 9.4 fL 9.2-12.4 RDW-CV 13.0 12.0-16.0 MCH 29.9 pg 26.2-32.6 Jun 30, 2025 12:11 PM [facility] LIVER FUNCTION SERUM Specimen Type: SERUM No comment entered. Ordering Provider: ZANE CAO Report Released Date/Time: Jun 23, 2025 04:31 PM Reporting Lab: [address] [address] Performing Lab: [address] [address] PROTEIN,TOTAL 7.6 g/dL 6.4-8.3 ALBUMIN 4.9 g/dL 3.5-5.2 ALKALINE PHOSPHATASE 81 U/L 40-150 AST 21 U/L 5-34 ALT 30 U/L 0-55 BILIRUBIN, TOTAL 0.3 mg/dL 0.2-1.2 Jun 30, 2025 12:11 PM [facility] PSA SERUM Specimen Type: SERUM No comment entered. Ordering Provider: ZANE CAO Report Released Date/Time: Jun 23, 2025 04:31 PM Reporting Lab: [address] [address] Performing Lab: [address] [address] PSA 0.9 ng/mL 0-4 Jun 30, 2025 12:11 PM [facility] TSH SERUM Specimen Type: SERUM No comment entered. Ordering Provider: ZANE CAO Report Released Date/Time: Jun 23, 2025 04:31 PM Reporting Lab: [facility] [address] [facility] [address] Performing Lab: [facility] [address] [facility] [address] TSH 1.55 u[IU]/mL 0.35-4.94 Social History: Smoking Status (Most current) and Tobacco Use (All prior to encounter date) This section includes the most current, and the historical, smoking and tobacco- related health factors from the [place] facility where the Encounter took place. Current Smoking Status This section includes the most current smoking, or tobacco-related health factor, from the [place] facility where the Encounter took place. Date/Time Current Smoking Status Comment Henrietta ity Jul 07, 2024 03:00 PM VA-TOBACCO FORMER USER [facility] Tobacco Use History This section includes a history of the smoking, or tobacco-related health factors, that were collected on or before the date of the Encounter. The data comes from the [place] facility where the Encounter took place. Date/Time Smoking Status/Tobacco Use Comment F acility Jul 07, 2024 03:00 PM VA-TOBACCO QUIT 5 TO < 15 YRS [facility] Jun 01, 2023 03:30 PM VA-TOBACCO FORMER USER [place] [facility] [place] [facility] Jun 01, 2023 03:30 PM VA-TOBACCO QUIT 5 TO < 15 YRS [facility] Encounter Notes: All associated encounter notes This section contains the clinical notes associated to the Encounter. Date/Time Encounter Note(s) Provider Source Jun 30, 2025 02:22 PM PSYCHOLOGY NOTE: LOCAL TITLE: PSYCHOLOGY NOTE STANDARD TITLE: PSYCHOLOGY NOTE DATE OF NOTE: JUN 30, 2025@14:22 ENTRY DATE: JUN 30, 2025@14:22:56 AUTHOR: RONAN VELIZ COSIGNER: URGENCY: STATUS: COMPLETED This was a 50 minute appointment on 06/30/2025 in the treatment of issues related to PTSD. DATA: The [place] shared that he had been in a state of acute distress since our last appointment and had found it very difficult to work over the past week. He mentioned that he was considering taking FMLA while undergoing this portion of treatment. The [place] had completed a trauma narrative, but not ABC worksheets. We explored how memories and feelings associated with traumatic memories had been showing up for him. The provider engaged in psychoeducation regarding somatic process in relation to trauma. We discussed changing approaches temporarily towards in-session imaginal exposures and relaxation training, with the idea that we'd return to CPT after achieving some level of habituation. We worked together on a box breathing exercise and the [place] was asked to practice this daily over the coming week. ASSESSMENT: The was on time to the appointment and was engaged. Grooming and dress were WNL. Gross motor function was WNL. Mood was anxious and affect was congruent and varied appropriately. Speech was WNL. Insight and judgement were intact. There was no evidence of A/VH or thought disorder. The reported having some thoughts about over the past week but denied suicidal plan or intent. PLAN: The [place] will RTC for individual therapy with Dr. Ronan Veliz on 07/07/2025. /es/ RONAN VELIZ, PHD Psychologist Signed: 06/30/2025 14:28 RONAN VELIZ [place] [facility] [place] [facility] Jun 30, 2025 08:11 AM MENTAL HEALTH DIAG NOSTIC STUDY NOTE: LOCAL TITLE: MENTAL HEALTH DIAGNOSTIC STUDY STANDARD TITLE: MENTAL HEALTH DIAGNOSTIC STUDY NOTE DATE OF NOTE: JUN 30, 2025@08:11:25 ENTRY DATE: JUN 30, 2025@08:11:25 AUTHOR: RONAN VELIZ EXP COSIGNER: URGENCY: STATUS: COMPLETED Assessments were sent to the [place] via text/email. These assessments were completed by TODD JORGENSEN on their own device on 06/26/2025 4:47:05 PM. PATIENT HEALTH QUESTIONNAIRE-9 (PHQ-9) The patient reported symptoms consistent with a major depressive episode. The patient answered the following questions as indicated: Over the last two weeks, how often have you been bothered by any of the following problems: 1. Little interest or pleasure in doing things: Nearly every day 2. Feeling down, depressed or hopeless: Nearly every day 3. Trouble falling or staying asleep or sleeping too much: Nearly every day 4. Feeling tired or having little energy: Nearly every day 5. Poor appetite or over-eating: More than half the days 6. Feeling bad about yourself - or that you are a failure, or have let yourself or your family down: More than half the days 7. Trouble concentrating on things, such as reading the newspaper or watching television: More than half the days 8. Moving or speaking so slowly that other people could have noticed. Or the opposite - being so fidgety or restless that you have been moving around a lot more than usual: Nearly every day 9. Thoughts that you would be better off , or of hurting yourself in some way: Several Days PHQ-9 total score = 22 1-4 = minimal symptoms 5-9= mild symptoms 10-14= moderate symptoms 15-19= moderately severe symptoms 20-27= severe depressive symptoms How difficult have these problems made it for you to do work, difficult to work, take care of things at home, or get along with others: very. PHQ-9 Total Score (past 180 days): 06/26/2025 22 2025 17 PTSD CHECKLIST (PCL-5) - WEEKLY The patient answered the following questions as indicated: In the past week, how much were you bothered by: 1. Repeated, disturbing, and unwanted memories of the stressful experience?: Extremely 2. Repeated, disturbing dreams of the stressful experience?: Quite a bit 3. Suddenly feeling or acting as if the stressful experience were actually happening again (as if you were actually back there reliving it)?: Quite a bit 4. Feeling very upset when something reminded you of the stressful experience?: Extremely 5. Having strong physical reactions when something reminded you of the stressful experience (for example, heart pounding, trouble breathing, sweating)?: Extremely 6. Avoiding memories, thoughts, or feelings related to the stressful experience?: Quite a bit 7. Avoiding external reminders of the stressful experience (for example, people, places, conversations, activities, objects, or situations)?: Quite a bit 8. Trouble remembering important parts of the stressful experience?: Quite a bit 9. Having strong negative beliefs about yourself, other people, or the world (for example, having thoughts such as: I am bad, there is something seriously wrong with me, no one can be trusted, the world is completely dangerous)?: Extremely 10. Blaming yourself or someone else for the stressful experience or what happened after it?: Quite a bit 11. Having strong negative feelings such as fear, horror, anger, guilt, or shame?: Extremely 12. Loss of interest in activities that you used to enjoy?: Extremely 13. Feeling distant or cut off from other people?: Extremely 14. Trouble experiencing positive feelings (for example, being unable to feel happiness or have loving feelings for people close to you)?: Quite a bit 15. Irritable behavior, angry outbursts, or acting aggressively?: Quite a bit 16. Taking too many risks or doing things that could cause you harm?: Moderately 17. Being 'superalert' or watchful or on guard?: Extremely 18. Feeling jumpy or easily startled?: Quite a bit 19. Having difficulty concentrating?: Extremely 20. Trouble falling or staying asleep?: Quite a bit PCL-5 total score = 68 This measure assesses an individual's perception of [...] DSM-5, is recommended to confirm diagnostic status. PCL-5 Weekly Total Score (past 180 days): 06/26/2025 68 2025 40 /es/ RONAN VELIZ, PHD Psychologist Signed: 06/30/2025 12:43 RONAN VELIZ [facility]
--- OUTSIDE RECORDS SUMMARY | 2025-07-26 05:00 | XMS_ITS | Encounter Summary ---
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 Oct 09, [id number] HUGEL,DARRICK HAEL PATIENT [place] PRESCRIPT ION BCBS [facility] [facility] Oct 12, 2022 [id number] HUGEL,DARRICK HAMARCO ANTONIO PATIENT [place] PRESCRIPT ION [place] [facility] Oct 09, 2022 [id number] HUGEL,DARRICK HAEL PATIENT [place] ([id number]) PRESCRIPT ION [facility] Oct 12, 2022 [id number] HUGEL,DARRICK HAEL PATIENT [employer] PRESCRIPT ION [facility] [place] [facility] Nov 06, 2020 [id number] HUGEL,DARRICK HAEL PATIENT [employer] [employer] PRESCRIPT ION [employer] [place] Nov 06, 2020 [id number] HUGEL,DARRICK HAEL PATIENT [employer] PRESCRIPT ION [facility] [place] [facility] [employer] Nov 06, 2020 [id number] HUGEL,DARRICK KEENE PATIENT Selected Encounter This section includes the information on record at [place] for the Encounter. Date/Time Encounter Type Encounter Description Reason Provider Source Jul 26, 2025 10:00 AM PSYTX W PT 45 [facility]UTES [facility] - IND ICD-10-CM F43.12 Post-traumatic stress disorder, chronic RONAN VELIZ [facility] Encounter Template Text not used by [place] Assessments - Encounter Diagnoses This section includes the primary and secondary diagnoses documented for the Encounter. Date/Time Primary/Secondary Diagnosis Diagnosis Name Provider Source Jul 27, 2025 04:03 PM PRIMARY Post-traumatic stress disorder, chronic RONAN VELIZ [place] [facility] [place] [facility] Plan of Treatment: Future Appointments (+ 6 months) and Future Tests (+/- 45 days) The Plan of Treatment section includes future care activities for the patient from all [place] treatmentfacilities. This section includes future appointments and future orders which are active, pending or scheduled. Future Appointments This section includes appointments that were scheduled to occur 6 months from the date of the Encounter, up to a maximum of 20 appointments. The data comes from all [place] treatment facilities. Appointment Date/Time Appointment Type Appointme nt Facility Name Aug 15, 2025 02:00 PM AMBULATORY - PSYCHIATRY [facility] [place] [facility] Aug 24, 2025 03:00 PM AMBULATORY - PSYCHIATRY [facility] [place] [facility] Aug 31, 2025 09:30 AM AMBULATORY - PSYCHIATRY [facility] [place] [facility] Sep 05, 2025 03:00 PM AMBULATORY - PSYCHIATRY [facility] [place] [facility] Sep 14, 2025 01:00 PM AMBULATORY - PSYCHIATRY [facility] [place] [facility] Sep 22, 2025 03:00 PM AMBULATORY - PSYCHIATRY [facility] [place] [facility] Sep 29, 2025 03:00 PM AMBULATORY - PSYCHIATRY [facility] [place] [facility] Oct 06, 2025 08:30 PM AMBULATORY - MEDICINE [facility] [place] [facility] Oct 13, 2025 03:00 PM AMBULATORY - PS[place]CHIATRY [facility] [place] [facility] Jan 24, 2026 02:30 PM AMBULATORY - NONE [facility] [place] [facility] Jan 24, 2026 03:00 PM AMBULATORY - MEDICINE [place] [facility] [place] [facility] Active, Pending, and Scheduled Orders This section includes a listing of several types of active, pending, and scheduled orders, including clinic medications orders, diagnostic test orders, procedure orders and consult orders; where the start date of the order is 45 days before the date of the Encounter or 45 days after the date of theEncounter. The data comes from all [place] treatment facilities. Test Date/Time Test Type Test Details Facility Name Jul 26, 2025 12:00 AM Laboratory - Chemistry Order TOTAL TESTOSTERONE BLOOD (SST-SERUM) SP [facility] [place] [facility] Sep 05, 2025 03:02 PM Consult Order COMMUNITY CARE-SLEEP STUDY Cons Vp Legal Affairs's Choice [facility] [place] [facility] Lab Results: +/- 30 days [...] Type Comment Jun 30, 2025 12:11 PM [facility] LIPID PANEL, NON FASTING SERUM Specimen Type: SERUM No comment entered. Ordering Provider: ZANE CAO Report Released Date/Time: Jun 23, 2025 04:31 PM Reporting Lab: [facility] [address] [address] Performing Lab: [facility] [address] [address] CHOLESTEROL 217 mg/dL H TRIGLYCERIDE 197 mg/dL H 0-150 LDL calculated 135 mg/dL H 0-129 CHOL/HDL 5.0 HDL CHOLESTEROL 43 mg/dL >40 Jun 30, 2025 12:11 PM [facility] BASIC METABOLIC PANEL (non-fasting) SERUM Spe cimen Type: SERUM No comment entered. Ordering Provider: ZANE CAO Report Released Date/Time: Jun 23, 2025 04:31 PM Reporting Lab: [facility] [address] [address] Performing Lab: [facility] [address] [address] UREA NITROGEN 15 mg/dL 8-26 GLUCOSE 85 mg/dL 65-100 SODIUM 142 mmol/L 136-145 POTASSIUM 4.3 mmol/L 3.5-5.1 CHLORIDE 102 mmol/L 98-107 CO2 30 meq/L H 22-29 CALCIUM 9.8 mg/dL 8.4-10.2 CREATININE, Serum 0.87 mg/dL 0.72-1.25 eGFR(CKD-EPI 2020) >90 mL/min >60 ANION GAP 10 meq/L 6-16 Jun 30, 2025 12:11 PM [facility] CBC BLOOD Specimen Type: BLOOD No comment entered. Ordering Provider: ZNAE CAO Report Released Date/Time: Jun 23, 2025 04:31 PM Reporting Lab: [facility] [address] [address] Performing Lab: [address] [address] WBC 7.54 10*3/uL 4.50-11.00 RBC 5.18 10*6/uL 4.23-5.66 HGB 15.5 g/dL 12.8-17 HCT 45.6 39.2-50.4 MCV 88.0 fL 82-99 MCHC 34.0 g/dL 30.8-35.1 PLT 344 10*3/uL 140-360 MPV 9.4 fL 9.2-12.4 RDW-CV 13.0 12.0-16.0 MCH 29.9 pg 26.2-32.6 Jun 30, 2025 12:11 PM [facility] LIVER FUNCTION SERUM Specimen Type: SERUM No comment entered. Ordering Provider: ZANE CAO Report Released Date/Time: Jun 23, 2025 04:31 PM Reporting Lab: [address] [address] Performing Lab: [address] [address] PROTEIN,TOTAL 7.6 g/dL 6.4-8.3 ALBUMIN 4.9 g/dL 3.5-5.2 ALKALINE PHOSPHATASE 81 U/L 40-150 AST 21 U/L 5-34 ALT 30 U/L 0-55 BILIRUBIN, TOTAL 0.3 mg/dL 0.2-1.2 Jun 30, 2025 12:11 PM [facility] PSA SERUM Specimen Type: SERUM No comment entered. Ordering Provider: ZANE CAO Report Released Date/Time: Jun 23, 2025 04:31 PM Reporting Lab: [address] [address] Performing Lab: [address] [address] PSA 0.9 ng/mL 0-4 Jun 30, 2025 12:11 PM [facility] TSH SERUM Specimen Type: SERUM No comment entered. Ordering Provider: ZANE CAO Report Released Date/Time: Jun 23, 2025 04:31 PM Reporting Lab: [address] [address] Performing Lab: [place] [facility] [place] [facility] [address] [address] TSH 1.55 u[IU]/mL 0.35-4.94 Vital Signs: All taken on the encounter date This section contains inpatient and outpatient Vital Signs collected on the date of the Encounter. Date/Time Temperature Pulse Blood Pressure Respiratory Rate SP02 Pain Height Weight Body Mass Index Source Jul 26, 2025 02:35 PM 98.4 F 89 /min 146/89 mm[Hg] 20 /min 98 % 0 72 in 239 lb 32 [facility] Social History: Smoking Status (Most current) and Tobacco Use (All prior to encounter date) This section includes the most current, and the historical, smoking and tobacco- related health factors from the [place] facility where the Encounter took place. Current Smoking Status This section includes the most current smoking, or tobacco-related health factor, from the [place] facility where the Encounter took place. Date/Time Current Smoking Status Comment Facil ity Jul 26, 2025 03:00 PM [facility] Tobacco Use History This section includes a history of the smoking, or tobacco-related health factors, that were collected on or before the date of the Encounter. The data comes from the [place] facility where the Encounter took place. Date/Time Smoking Status/Tobacco Use Comment F acility Jul 26, 2025 03:00 PM VA-TOBACCO USE FOR JESSICA CIGARETTES [place] [facility] [place] [facility] Jul 07, 2024 03:00 PM VA-TOBACCO FORMER USER [place] [facility] [place] [facility] Jul 07, 2024 03:00 PM VA-TOBACCO QUIT 5 TO < 15 YRS [place] [facility] [place] [facility] Jun 01, 2023 03:30 PM VA-TOBACCO FORMER USER [place] [facility] [place] [facility] Jun 01, 2023 03:30 PM VA-TOBACCO QUIT 5 TO < 15 YRS [facility] Encounter Notes: All associated encounter notes This section contains the clinical notes associated to the Encounter. Date/Time Encounter Note(s) Provider Source Jul 26, 2025 04:00 PM PSYCHOLOGY NOTE: LOCAL TITLE: PSYCHOLOGY NOTE STANDARD TITLE: PSYCHOLOGY NOTE DATE OF NOTE: JUL 26, 2025@16:00 ENTRY DATE: JUL 27, 2025@16:00:44 AUTHOR: RONAN VELIZ COSIGNER: URGENCY: STATUS: COMPLETED This was a 50 minute appointment on 07/26/2025 in the treatment of issues related to PTSD. DATA: The shared that he had been doing better since our last session. He had listened to the exposure recording a few times and had noticed it getting easier to listen to. He continued to practice box breathing and was finding it to be helpful and calming. The Porter was planning on going on an extended vacation next week and so we opted to not resume exposure. We discussed avoidance, and making intentional choices about treatment strategy. We agreed that we would resume imaginal exposure upon the Porter's return. We spent the remainer of session processing the Porter's changes in perspective and the role of trauma in several interpersonal patterns. ASSESSMENT: The was on time to the appointment and was engaged. Grooming and dress were WNL. Gross motor function was WNL. Mood was anxious and affect was congruent and varied appropriately. Speech was WNL. Insight and judgement were intact. There was no evidence of A/VH or thought disorder. No evidence of any increase in SI. PLAN: The will RTC for individual therapy with Dr. Ronan Veliz on 07/15/2025. /tanmay/ RONAN VELIZ, PHD Psychologist Signed: 07/27/2025 16:03 RONAN VELIZ [place] [facility] Jul 26, 2025 10:54 AM MENTAL HEALTH DIAG NOSTIC STUDY NOTE: LOCAL TITLE: MENTAL HEALTH DIAGNOSTIC STUDY STANDARD TITLE: MENTAL HEALTH DIAGNOSTIC STUDY NOTE DATE OF NOTE: JUL 26, 2025@10:54:52 ENTRY DATE: JUL 26, 2025@10:54:52 AUTHOR: RONAN VELIZ COSIGNER: URGENCY: STATUS: COMPLETED Assessments were sent to the via text/email. These assessments were completed by TODD JORGENSEN on their own device on 07/23/2025 4:23:20 PM. PATIENT HEALTH QUESTIONNAIRE-9 (PHQ-9) The patient [...] way: Several Days PHQ-9 total score = 18 1-4 = minimal symptoms 5-9= mild symptoms 10-14= moderate symptoms 15-19= moderately severe symptoms 20-27= severe depressive symptoms How difficult have these problems made it for you to do work, difficult to work, take care of things at home, or get along with others: very. PHQ-9 Total Score (past 180 days): 07/23/2025 18 07/11/2025 21 06/26/2025 22 2025 17 PTSD CHECKLIST (PCL-5) - WEEKLY The patient answered the following questions as indicated: In the past week, how much were you bothered by: 1. Repeated, disturbing, and unwanted memories of the stressful experience?: Moderately 2. Repeated, disturbing dreams of the stressful experience?: Moderately 3. Suddenly feeling or acting as if [...] or feelings related to the stressful experience?: Moderately 7. Avoiding external reminders of the stressful experience (for example, people, places, conversations, activities, objects, or situations)?: Moderately 8. Trouble remembering important parts of the stressful experience?: Extremely 9. Having strong negative beliefs about yourself, [...] as fear, horror, anger, guilt, or shame?: Quite a bit 12. Loss of interest in activities that [...] bit 18. Feeling jumpy or easily startled?: Moderately 19. Having difficulty concentrating?: Moderately 20. Trouble falling or staying asleep?: Quite a bit PCL-5 total score = 47 This measure assesses an individual's perception of [...] PCL-5 Weekly Total Score (past 180 days): 07/23/2025 47 07/11/2025 63 06/26/2025 68 2025 40 /es/ RONAN VELIZ, PHD Psychologist Signed: 07/26/2025 12:45 RONAN VELIZ [place] [facility]
--- OUTSIDE RECORDS SUMMARY | 2025-07-26 10:00 | XMS_ITS | Encounter Summary ---
Author Name [facility] [place] Address [address] [place] [address] Care Team Providers Care Women'S Garment Fitter Name Role Phone NAM CAO Primary Care Provider Unavaila GASTON Richardson [...] E HEALTH PLAN [facility] Oct 09, [id number] HUGEL,DARRICK HAEL PATIENT BCBS [place] HIGH DEDUCTIBL E HEALTH PLAN [facility] Oct 09, [id number] HUGEL,DARRICK HAEL PATIENT [place]BS OF [place] PREFERRED PROVIDER ORGANIZAT ION (PPO) [facility] Oct 09, [id number] HUGEL,DARRICK HAEL PATIENT [place] PRESCRIPT ION BCBS [facility] Oct 12, 2022 [id number] [phone] HUNTERLDARRICK PATIENT [place] PRESCRIPT ION [facility] Oct 09, 2022 [id number] [id number] HUNTERLDARRICK PATIENT [place] ([id number]) PRESCRIPT ION [facility] Oct 12, 2022 [id number] HUNTERL,DARRICK KEENE PATIENT [employer] BR[employer] PRESCRIPT ION [facility] Nov 06, 2020 [id number] HUNTERL,DARRICK KEENE PATIENT [employer] PRESCRIPT ION [facility] Nov 06, 2020 [id number] HUGEL,DARRICK KEENE PATIENT [employer] [employer] PRESCRIPT ION [place] Nov 06, 2020 [id number] HUNTERL,DARRICK KEENE PATIENT Selected Encounter This section includes the information on record at [place] for the Encounter. Date/Time Encounter Type Encounter Description Reason Provider Source Jul 26, 2025 03:00 PM OFFICE O/P EST HI 40 MIN PRIMARY CARE/MEDICINE ICD-10-CM R91.8 Other nonspecific abnormal finding of lung field DANIA CAO AM [place] Encounter Template Text not used by [place] Assessments - Encounter Diagnoses This section includes the primary and secondary diagnoses documented for the Encounter. Date/Time Primary/Secondary Diagnosis Diagnosis Name Provider Source Jul 26, 2025 03:14 PM PRIMARY Other nonspecific abnormal finding of lung field CAO,WILL ALLAN J [place] [facility] [place] [facility] Jul 26, 2025 03:14 PM SECONDARY Gastro-esophageal reflux disease without esophagitis CAO,WILL ALLAN J [place] [facility] [place] [facility] Jul 26, 2025 03:14 PM SECONDARY Hypothyroidism, unspecified CAO,WILL ALLAN J [place] [facility] [place] [facility] Jul 26, 2025 03:14 PM SECONDARY Unspecified asthma, uncomplicated CAO,WILL ALLAN J [place] [facility] [place] [facility] Jul 26, 2025 03:14 PM SECONDARY Vitamin B12 deficiency anemia, unspecified MARCELO CAO [place] [facility] [place] [facility] Plan of Treatment: Future Appointments (+ 6 months) and Future Tests (+/- 45 days) The Plan of Treatment section includes future care activities for the patient [facility] [place] [facility] This section includes future appointments and future orders which are active, pending or scheduled. Future Appointments This section includes appointments that were scheduled to occur 6 months from the date of the Encounter, up to a maximum of 20 appointments. The data comes from all [place] treatment [facility]. Appointment Date/Time Appointment Type Appointme nt Facility Name Aug 15, 2025 02:00 PM AMBULATORY [place]RY [place] [facility] [place] [facility] Aug 24, 2025 03:00 PM AMBUL[place] [facility] [place] [facility] Aug 31, 2025 09:30 AM AMBULATORY [place] [facility] [place] [facility] Sep 05, 2025 03:00 PM AMBUL[place]ORY [place] [facility] [place] [facility] Sep 14, 2025 01:00 PM AMBUL[place]ORY [place] [facility] [place] [facility] Sep 22, 2025 03:00 PM AM[place]UL[place]ORY [place] [facility] [place] [facility] Sep 29, 2025 03:00 PM AM[place]UL[place]ORY [place] [facility] [place] [facility] Oct 06, 2025 08:30 PM AMBULATORY [place]ICINE [place] [facility] [place] [facility] Oct 13, 2025 03:00 PM AMBULATORY [place] [facility] [place] [facility] Jan 24, 2026 02:30 PM AMBULATORY - NONE [place] [facility] [place] [facility] Jan 24, 2026 03:00 PM AMBULATORY - [place]IC[place] [facility] [place] [facility] Active, Pending, and Scheduled Orders This section includes a listing of several types of active, pending, and scheduled orders, including clinic medications orders, diagnostic test orders, procedure orders and consult orders; where the start date of the order is 45 days before the date of the Encounter or 45 days after the date of theEncounter. The data comes from all [place] treatment [facility]. Test Date/Time Test Type Test Details Facility Name Jul 26, 2025 12:00 AM Laboratory - Chemistry Order TOTAL TESTOSTERONE BLOOD (SST-SERUM) SP [facility] Sep 05, 2025 03:02 PM Consult Order COMMUNITY CARE-SLEEP STUDY Cons Computer Forensic Specialist's Choice [facility] Lab Results: +/- 30 days of the encounter This section includes the Chemistry and Hematology Lab Results on record with [place] for the patient. Radiology Reports and Pathology Reports are provided separately, in subsequent sections. Lab Results This section contains the Chemistry/Hematology Results that were resulted 30 days before or 30 daysafter the date of the Encounter. Date/Time Source Result Type Result - Unit Interpretation Reference Range Specimen Type Comment Jun 30, 2025 12:11 PM [facility] CBC BLOOD Specimen Type: BLOOD No comment entered. Ordering Provider: NAM CAO Report Released Date/Time: Jun 23, 2025 04:31 PM Reporting Lab: [address] [address] Performing Lab: [address] [address] WBC 7.54 10*3/uL 4.50-11.00 RBC 5.18 10*6/uL 4.23-5.66 HGB 15.5 g/dL 12.8-17 HCT 45.6 39.2-50.4 MCV 88.0 fL 82-99 MCHC 34.0 g/dL 30.8-35.1 PLT 344 10*3/uL 140-360 MPV 9.4 fL 9.2-12.4 RDW-CV 13.0 12.0-16.0 MCH 29.9 pg 26.2-32.6 Jun 30, 2025 12:11 PM [facility] BASIC METABOLIC PANEL (non-fasting) SERUM Spe cimen Type: SERUM No comment entered. Ordering Provider: NAM CAO Report Released Date/Time: Jun 23, 2025 04:31 PM Reporting Lab: [address] [address] Performing Lab: [address] [address] UREA NITROGEN 15 mg/dL 8-26 GLUCOSE 85 mg/dL 65-100 SODIUM 142 mmol/L 136-145 POTASSIUM 4.3 mmol/L 3.5-5.1 CHLORIDE 102 mmol/L 98-107 CO2 30 meq/L H 22-29 CALCIUM 9.8 mg/dL 8.4-10.2 CREATININE, Serum 0.87 mg/dL 0.72-1.25 eGFR(CKD-EPI 2020) >90 mL/min >60 ANION GAP 10 meq/L 6-16 Jun 30, 2025 12:[address] [facility] LIPID PANEL, NON FASTING SERUM Specimen Type: SERUM No comment entered. Ordering Provider: NAM CAO Report Released Date/Time: Jun 23, 2025 04:31 PM Reporting Lab: [facility] [address] [facility] [address] Performing Lab: [address] [address] CHOLESTEROL 217 mg/dL H TRIGLYCERIDE 197 mg/dL H 0-150 LDL calculated 135 mg/dL H 0-129 CHOL/HDL 5.0 HDL CHOLESTEROL 43 mg/dL >40 Jun 30, 2025 12:11 PM [facility] TSH SERUM Specimen Type: SERUM No comment entered. Ordering Provider: NAM CAO Report Released Date/Time: Jun 23, 2025 04:31 PM Reporting Lab: [facility] [address] [facility] [address] Performing Lab: [facility] [address] [facility] [address] TSH 1.55 u[IU]/mL 0.35-4.94 Jun 30, 2025 12:11 PM [facility] PSA SERUM Specimen Type: SERUM No comment entered. Ordering Provider: NAM CAO Report Released Date/Time: Jun 23, 2025 04:31 PM Reporting Lab: [facility] [address] [facility] [address] Performing Lab: [facility] [address] PSA 0.9 ng/mL 0-4 Jun 30, 2025 12:[address] [facility] LIVER FUNCTION SERUM Specimen Type: SERUM No comment entered. Ordering Provider: NAM CAO Report Released Date/Time: Jun 23, 2025 04:31 PM Reporting Lab: [facility] [address] [facility] [address] Performing Lab: [facility] [address] [facility] [address] PROTEIN,TOTAL 7.6 g/dL 6.4-8.3 ALBUMIN 4.9 g/dL 3.5-5.2 ALKALINE PHOSPHATASE 81 U/L 40-150 AST 21 U/L 5-34 ALT 30 U/L 0-55 BILIRUBIN, TOTAL 0.3 mg/dL 0.2-1.2 Vital Signs: All taken on the encounter date This section contains inpatient and outpatient Vital Signs collected on the date of the Encounter. Date/Time Temperature Pulse Blood Pressure Respiratory Rate SP02 Pain Height Weight Body Mass Index Source Jul 26, 2025 02:35 PM 98.4 F 89 /min 146/89 mm[Hg] 20 /min 98 % 0 [address] in [address] [facility] Social History: Smoking Status (Most current) and Tobacco Use (All prior to encounter date) This section includes the most current, and the historical, smoking and tobacco- related health factors from the [place] facility where the Encounter took place. Current Smoking Status This section includes the most current smoking, or tobacco-related health factor, from the [place] facility where the Encounter took place. Date/Time Current Smoking Status Comment Facil ity Jul 26, 2025 03:00 PM VA-TOBACCO USE FOR JSESICA CIGARETTES [facility] Tobacco Use History This section includes a history of the smoking, or tobacco-related health factors, that were collected on or before the date of the Encounter. The data comes from the [place] facility where the Encounter took place. Date/Time Smoking Status/Tobacco Use Comment F acility Jul 26, 2025 03:00 PM VA-TOBACCO USE FOR JESSICA CIGARETTES [facility] Jul 07[facility] 2024 03:00 PM VA-TOBACCO FORMER USER [facility] [place] [facility] Jul 07, 2024 03:00 PM VA-TOBACCO QUIT 5 TO < 15 YRS [facility] [place] [facility] Jun 01, 2023 03:30 PM VA-TOBACCO FORMER USER [facility] [place] [facility] Jun 01, 2023 03:30 PM VA-TOBACCO QUIT 5 TO < 15 YRS [place] [facility] [place] [facility] Encounter Notes: All associated encounter notes This section contains the clinical notes associated to the Encounter. Date/Time Encounter Note(s) Provider Source Jul 26, 2025 03:09 PM PRIMARY CARE NURSE PRACTITIONER OUTPATIENT NOTE: LOCAL TITLE: NURSE PRACTITIONER OUTPATIENT NOTE STANDARD TITLE: PRIMARY CARE NURSE PRACTITIONER OUTPATIENT NOTE DATE OF NOTE: JUL 26, 2025@15:09 ENTRY DATE: JUL 26, 2025@15:09:17 AUTHOR: NAM CAO COSIGNER: URGENCY: STATUS: COMPLETED Chief complaint: Patient is a 55 year old [place]. HPI: Pleasant male here to follow up. He continues to have fatigue, he did sleep study, i have requested report through consult comment. He will come back for lab to check testosterone. He and his are going on a trans[place] cruise, leaves tomorrow, and so he will be diconnected from most technology, taking a break. Allergies: AMPHETAMINES, RITALIN, ADDERALL The following VA and Non-VA meds were reconciled with patient. The patient was educated on the use of the medications including indication and side effects. Active and Recently Outpatient Medications (excluding Supplies): Active Outpatient Medications Status === 1) DM 10/GUAIFENESN 100MG/5ML (AF & SF) LIQ TAKE 5 MLS BY MOUTH ACTIVE EVERY 6 HOURS NEEDED Indication: FOR COUGH 2) FLUTICASONE PROP 50MCG 120D NASAL INHL INSTILL 1 SPRAY INTO ACTIVE EACH NOSTRIL TWICE DAILY Indication: FOR NASAL IRRITATION/INFLAMMATION 3) LEVOTHYROXINE NA 125MCG TAB TAKE ONE TABLET BY MOUTH EVERY ACTIVE (S) MORNING 30 MINUTES BEFORE BREAKFAST TAKE ON AN EMPTY STOMACH WITH A FULL GLASS OF WATER Indication: FOR THYROID 4) SILDENAFIL CITRATE 100MG TAB TAKE ONE TABLET BY MOUTH ONCE ACTIVE DAILY NEEDED TAKE 1 HOUR PRIOR TO SEXUAL ACTIVITY Indication: FOR ERECTILE DYSFUNCTION Pending Outpatient Medications Status === 1) CYANOCOBALAMIN 1000MCG TAB TAKE ONE TABLET BY MOUTH ONCE PENDING DAILY Indication: FOR PREVENTION OF VITAMIN B12 DEFICIENCY 2) LEVOTHYROXINE NA 125MCG TAB TAKE ONE TABLET BY MOUTH EVERY PENDING MORNING 30 MINUTES BEFORE BREAKFAST TAKE ON AN EMPTY STOMACH WITH A FULL GLASS OF WATER Indication: FOR THYROID 3) OMEPRAZOLE 20MG EC CAP TAKE TWO CAPSULES BY MOUTH EVERY PENDING MORNING 30 MINUTES BEFORE BREAKFAST Indication: FOR EXCESSIVE PRODUCTION OF STOMACH ACID Inactive Outpatient Medications Status === 1) CYANOCOBALAMIN 1000MCG TAB TAKE ONE TABLET BY MOUTH ONCE DAILY Indication: FOR PREVENTION OF VITAMIN B12 DEFICIENCY 2) OMEPRAZOLE 20MG EC CAP TAKE TWO CAPSULES BY MOUTH EVERY MORNING 30 MINUTES BEFORE BREAKFAST Indication: FOR EXCESSIVE PRODUCTION OF STOMACH ACID 9 Total Medications Review of Systems: Constitutional: (-)for Fevers, chills, weakness, nights sweats On examination: 98.4 F [36.9 C] (07/26/2025 14:35)146/89 (07/26/2025 14:35)89 (07/26/2025 14:35)20 (07/26/2025 14:35)0 (07/26/2025 14:35)BMI: 32.5239 lb [108.41 kg] (07/26/2025 14:35) [place] is alert and oriented X3 Cardiovasc: 2plus [...] List is the source for the followin. Chronic Post-Traumatic Stress Disorder ([facility] [id number]) - follows mh 2. Multiple nodules of lung - stable imaging. 3. Hypothyroidism ([facility] [id number]) - euthroid 4. Asthma ([facility] [id number]) - stable 5. gerd - stable on ppi. 6. B12 defic - continue supp. Health Care Maintenance: declines flu Today I spent 40 minutes on some or all of the following: chart review, history, physical examination, treatment planning, education and counseling of the patient/family/home care associate, placing orders, communicating with other health care [...] of active outpatient prescriptions dispensed from this [place] (local) and dispensed from another [place] or [place] facility (remote) as well as inpatient orders [...] a VA or non-VA provider. /tanmay/ Nam Cao DNP, WHEAT BUYER-BC, CNL Primary Care Nurse Practitioner Signed: 07/26/2025 15:13 NAM CAO [place] [facility] Jul 26, 2025 02:38 PM PREVENTIVE MEDICINE NURSING NOTE: LOCAL TITLE: CLINICAL REMINDERS/NURSING STANDARD TITLE: PREVENTIVE MEDICINE NURSING NOTE DATE OF NOTE: JUL 26, 2025@14:38 ENTRY DATE: JUL 26, 2025@14:38:53 AUTHOR: JEFERSON KIM COSIGNER: URGENCY: STATUS: COMPLETED Advance Directive Screen MH AD: Patient does not have an Advance Directive completed and is requesting more information. A consult was sent to Social Work Services at this visit so that an appointment can be made with the patient to review the advance directive. The patient received education about Advance Directives and written notification of his/her rights. Homelessness/Food Insecurity Screen: In the past 2 months, have you been living in stable housing that you own, rent, or stay in as part of a household? Yes - Living in stable housing. Are you worried or concerned that in the next 2 months you may NOT have stable housing that you own, rent, or stay in as part of a household? No - Not worried about housing near future The [place] reports the following: Within the past 12 months, you worried whether your food would run out before you got money to buy more. Never true Within the past 12 months, the food you bought just didn't last and you didn't have money to get more. Never true Tobacco Use Screening: The patient is a former cigarette smoker. The patient has never used other types of tobacco. Alcohol Use Screen (AUDIT-C): Alcohol Screen: SCREEN FOR ALCOHOL (AUDIT-C) An alcohol screening test (AUDIT-C) was negative (score=1). 1. How often did you have a drink containing alcohol in the past year? Consider a drink to be a 12 ounce can or bottle of regular beer, 8 ounces of malt liquor, a 5 ounce glass of table wine, or a 1.5 ounce shot of liquor (like scotch, gin, or vodka). Monthly or less 2. How many drinks containing alcohol did you have on a typical day when you were drinking in the past year? One or two drinks 3. How often did you have six or more drinks on one occasion in the past year? Never RHS Screen: RHS Screen Session Format: Face to Face Environmental Check Upon inquiry, the individual reports that the environment is safe to proceed. Informed Consent to Screen and Document The individual consents to proceed with screening. The individual consents to documentation of responses. PRIMARY SCREEN: In the past 12 months, how often did a current or former intimate partner (e.g., boyfriend, girlfriend, , , sexual partner): 1. Scream or curse at you Never 2. Insult or talk down to you Never 3. Threaten you with harm Never 4. Physically hurt you Never 5. Force or pressure you to have sexual contact against your will, or when you were unable to say no Never The HITS tool (items 1-4 above) is [place] copyright protected by José Miguel Vasquez MD, and the user has full rights to use it throughout the [place] system. PRIMARY SCREEN RESULT: The Primary Screen is NEGATIVE. The individual answered never to all forms of IPV above (i.e., answered never to all 5 items) The individual accepts education and/or resources: No EDUCATION: Other: not interested at this time /tanmay/ Jeferson Kim [employer] Foreperson PANAMA HAT BLOCKER,PRIMARY CARE Signed: 07/26/2025 14:41 JEFERSON KIM [place] [facility]
--- OUTSIDE RECORDS SUMMARY | 2025-09-05 10:00 | XMS_ITS | Encounter Summary ---
Author Name [facility] [place] Organization [facility] [place] [facility] [place] Address [address] [place] [address] Care Team Providers Care Customer Liaison Name Role Phone ZANE CAO Primary Care [...] E HEALTH PLAN [place] [facility] Oct 09, [id number] [phone] HUGEL,DARRICK HAEL PATIENT [place]BS [place] DEDUCTIBL E HEALTH PLAN [place] [facility] Oct 09, [id number] HUGEL,DARRICK HAEL PATIENT [place] PREFERRED PROVIDER ORGANIZAT ION (PPO) [facility] [place] [employer] Oct 09, [id number] HUGEL,DARRICK HAEL PATIENT [place] PRESCRIPT ION BCBS CAREM ARK [facility] Oct 12, 2022 [id number] [id number] HUGEL,DARRICK HAMARCO ANTONIO PATIENT [place] PRESCRIPT ION [place] [facility] Oct 09, 2022 [id number] [phone] HUGEL,DARRICK HAEL PATIENT [place] ([id number]) PRESCRIPT ION [facility] Oct 12, 2022 [id number] HUGEL,DARRICK HAEL PATIENT [employer] PRESCRIPT ION [facility] [place] [facility] [employer] Nov 06, 2020 L4TA [id number] [id number] HUGEL,DARRICK HAEL PATIENT [employer] PRESCRIPT ION [employer] [place] Nov 06, 2020 L4TA [id number] [phone] HUGEL,DARRICK HAEL PATIENT [employer] PRESCRIPT ION [facility] [place] [facility] [employer] Nov 06, 2020 L4TA [id number] HUGEL,DARRICK KEENE PATIENT Selected Encounter This section includes the information on record at MD for the Encounter. Date/Time Encounter Type Encounter Description Reason Provider Source Sep 05, 2025 03:00 PM PSYTX W PT 45 MINUTES [facility] - IND ICD-10-CM F43.12 Post-traumatic stress disorder, chronic RONAN VELIZ E Encounter Template Text not used by MD Assessments - Encounter Diagnoses This section includes the primary and secondary diagnoses documented for the Encounter. Date/Time Primary/Secondary Diagnosis Diagnosis Name Provider Source Sep 06, 2025 04:51 PM PRIMARY Post-traumatic stress disorder, chronic RONAN VELIZ [place] [facility] [facility] Plan of Treatment: Future Appointments (+ 6 months) and Future Tests (+/- 45 days) The Plan of Treatment section includes future care activities for the patient from all MD treatmentfacilities. This section includes future appointments and future orders which are active, pending or scheduled. Future Appointments This section includes appointments that were scheduled to occur 6 months from the date of the Encounter, up to a maximum of 20 appointments. The data comes from all MD treatment facilities. Appointment Date/Time Appointment Type Appointme nt Facility Name Sep 14, 2025 01:00 PM [facility] Sep 22, 2025 03:00 PM [facility] Sep 29, 2025 03:00 PM [facility] Oct 06, 2025 08:30 PM AMBULATORY - MEDICINE [facility] Oct 13, 2025 03:00 PM [facility] Jan 24, 2026 02:30 PM [facility] Jan 24, 2026 03:00 PM AMBULATORY - MEDICINE [facility] Active, Pending, and Scheduled Orders This section includes a listing of several types of active, pending, and scheduled orders, including clinic medications orders, diagnostic test orders, procedure orders and consult orders; where the start date of the order is 45 days before the date of the Encounter or 45 days after the date of theEncounter. The data comes from all MD treatment facilities. Test Date/Time Test Type Test Details Facility Name Jul 26, 2025 12:00 AM Laboratory - Chemistry Order TOTAL TESTOSTERONE BLOOD (SST-SERUM) SP [facility] Sep 05, 2025 03:02 PM Consult Order COMMUNITY CARE-SLEEP STUDY Cons [employer] Choice [facility] Social History: Smoking Status (Most current) and Tobacco Use (All prior to encounter date) This section includes the most current, and the historical, smoking and tobacco- related health factors from the MD facility where the Encounter took place. Current Smoking Status This section includes the most current smoking, or tobacco-related health factor, from the MD facility where the Encounter took place. Date/Time Current Smoking Status Comment Facil ity Jul 26, 2025 03:00 PM VA-TOBACCO USE FOR JESSICA CIGARETTES [facility] Tobacco Use History This section includes a history of the smoking, or tobacco-related health factors, that were collected on or before the date of the Encounter. The data comes from the MD facility where the Encounter took place. Date/Time Smoking Status/Tobacco Use Comment F acility Jul 26, 2025 03:00 PM VA-TOBACCO USE FOR JESSICA CIGARETTES MD [facility] [place] [facility] Jul 07, 2024 03:00 PM VA-TOBACCO FORMER USER MD [place] [place] [facility] Jul 07, 2024 03:00 PM VA-TOBACCO QUIT 5 TO < 15 YRS [facility] [place] [facility] Jun 01, 2023 03:30 PM VA-TOBACCO FORMER USER MD [facility] [place] [facility] Jun 01, 2023 03:30 PM VA-TOBACCO QUIT 5 TO < 15 YRS [facility] Encounter Notes: All associated encounter notes This section contains the clinical notes associated to the Encounter. Date/Time Encounter Note(s) Provider Source Sep 05, 2025 04:48 PM PSYCHOLOGY NOTE: LOCAL TITLE: PSYCHOLOGY NOTE STANDARD TITLE: PSYCHOLOGY NOTE DATE OF NOTE: SEP 05, 2025@16:48 ENTRY DATE: SEP 06, 2025@16:48:46 AUTHOR: RONAN VELIZ COSIGNER: URGENCY: STATUS: COMPLETED IDENTITY VERIFICATION [X] Patient Name [X] Visual recognition [ ] Birthdate [ ] Social Security # This was a 50 minute appointment on 09/05/2025 in the treatment of issues related to PTSD. DATA: The shared that he had been in a state of distress over the past several days and had been calling out of work. We explored the reasons for this and identified perseveration on traumatic content as a contributing factor. We engaged in considerable processing and resourcing to help the [place] ground himself. SI was denied. We investigated how the 's own self-critical tendencies are a reflection of conditioning from trauma (e.g., concern about being a burden to others, expectation of rejection, etc.). ASSESSMENT: The [place] was on time to the appointment and was engaged. Grooming and dress were WNL. Gross motor function was WNL. Mood was anxious and affect was congruent and varied appropriately. Speech was WNL. Insight and judgement were intact. There was no evidence of A/VH or thought disorder. No indication of any increase in SI or emergent risk. PLAN: The [place] will RTC for individual therapy with Dr. Ronan Veliz on 09/14/2025. /es/ RONAN VELIZ, PHD Psychologist Signed: 09/06/2025 16:51 RONAN VELIZ MD [facility] [place] [facility] Sep 05, 2025 09:11 AM MENTAL HEALTH DIAG NOSTIC STUDY NOTE: LOCAL TITLE: MENTAL HEALTH DIAGNOSTIC STUDY STANDARD TITLE: MENTAL HEALTH DIAGNOSTIC STUDY NOTE DATE OF NOTE: SEP 05, 2025@09:11:07 ENTRY DATE: SEP 05, 2025@09:11:07 AUTHOR: RONAN VELIZ EXP COSIGNER: URGENCY: STATUS: COMPLETED [place] completed assessments that were sent by [facility] via text/email. These assessments were completed by TODD JORGENSEN on their own device on 09/04/2025 6:39:25 PM. PATIENT HEALTH QUESTIONNAIRE-9 (PHQ-9) The patient [...] have let yourself or your family down: Nearly every day 7. Trouble concentrating on things, such as [...] way: Several Days PHQ-9 total score = 20 1-4 = minimal symptoms 5-9= mild symptoms 10-14= moderate symptoms 15-19= moderately severe symptoms 20-27= severe depressive symptoms How difficult have these problems made it for you to do work, difficult to work, take care of things at home, or get along with others: extremely. PHQ-9 Total Score (past 180 days): 09/04/2025 20 08/22/2025 1 07/23/2025 18 07/11/2025 21 06/26/2025 22 2025 17 PTSD CHECKLIST (PCL-5) - WEEKLY The patient answered the following questions as indicated: In the past week, how much were you bothered by: 1. Repeated, disturbing, and unwanted memories of the stressful experience?: Quite a bit 2. Repeated, disturbing dreams of the stressful experience?: Extremely 3. Suddenly feeling or acting as if the stressful experience were actually happening again (as if you were actually back there reliving it)?: Moderately 4. Feeling very upset when something reminded you of the stressful experience?: Extremely 5.Having strong physical reactions when something reminded you of the stressful experience (for example, heart pounding, trouble breathing, sweating)?: Quite a bit 6. Avoiding memories, thoughts, or feelings related to the stressful experience?: Extremely 7. Avoiding external reminders of the stressful experience (for example, people, places, conversations, activities, objects, or situations)?: Extremely 8. Trouble remembering important parts of the [...] distant or cut off from other people?: Quite a bit 14. Trouble experiencing positive feelings (for example, being unable to feel happiness or have loving feelings for people close to you)?: Extremely 15. Irritable behavior, angry outbursts, or acting aggressively?: Quite a bit 16. Taking too many risks or doing things that could cause you harm?: Quite a bit 17. Being 'superalert' or watchful or on guard?: Quite a bit 18. Feeling jumpy or easily startled?: Moderately 19. Having difficulty concentrating?: Extremely 20. Trouble falling or staying asleep?: Quite a bit PCL-5 total score = 67 This measure assesses an individual's perception of [...] PCL-5 Weekly Total Score (past 180 days): 09/04/2025 67 08/22/2025 37 07/23/2025 47 07/11/2025 63 06/26/2025 68 2025 40 /es/ RONAN VELIZ, PHD Psychologist Signed: 09/05/2025 09:25 RONAN VELIZ MD CNTR[facility]
--- OUTSIDE RECORDS SUMMARY | 2025-09-22 10:00 | XMS_ITS | Encounter Summary ---
Author Name [facility] [place] Organization [place] Address [address] [place] [address] Care Team Providers Care Rehab Office Coordinator Name Role Phone ZANE CAO Primary Care [...] E HEALTH PLAN ST[place] [facility] Oct 09, [id number] [phone] HUGEL,DARRICK HAEL PATIENT [place]BS [place] HIGH DEDUCTIBL E HEALTH PLAN [place] [facility] Oct 09, [id number] HUGEL,DARRICK HAEL PATIENT [place] PREFERRED PROVIDER ORGANIZAT ION (PPO) [facility] [place] [employer] Oct 09, [id number] HUGEL,DARRICK HAEL PATIENT [place] PRESCRIPT ION BCBS CAR[employer] AR[facility] Oct 12, 2022 RX22MA [id number] HUGEL,DARRICK HAMARCO ANTONIO PATIENT [place] PRESCRIPT ION [place] [facility] Oct 09, 2022 [id number] [id number] HUGEL,DARRICK HAEL PATIENT [place] ([id number]) PRESCRIPT ION [facility] Oct 12, 2022 [id number] [id number] HUGEL,DARRICK HAEL PATIENT [employer] PRESCRIPT ION [place] [employer] Nov 06, 2020 L4TA [id number] HUGEL,DARRICK HAEL PATIENT [employer] PRESCRIPT ION [employer] [place] Nov 06, 2020 L4TA [id number] HUGEL,DARRICK HAEL PATIENT [employer] PRESCRIPT ION [facility] [employer] Nov 06, 2020 L4TA [id number] HUGEL,DARRICK KEENE PATIENT Selected Encounter This section includes the information on record at [place] for the Encounter. Date/Time Encounter Type Encounter Description Reason Provider Source Sep 22, 2025 03:00 PM PSYTX W PT 60 MINUTES [facility] - IND ICD-10-CM F43.12 Post-traumatic stress disorder, chronic RONAN VELIZ E Encounter Template Text not used by AR Assessments - Encounter Diagnoses This section includes the primary and secondary diagnoses documented for the Encounter. Date/Time Primary/Secondary Diagnosis Diagnosis Name Provider Source Sep 22, 2025 04:27 PM PRIMARY Post-traumatic stress disorder, chronic RONAN VELIZ A [place] [facility] [place] [facility] Plan of Treatment: Future Appointments (+ 6 months) and Future Tests (+/- 45 days) The Plan of Treatment section includes future care activities for the patient from all [place] treatmentfacilities. This section includes future appointments and future orders which are active, pending or scheduled. Future Appointments This section includes appointments that were scheduled to occur 6 months from the date of the Encounter, up to a maximum of 20 appointments. The data comes from all [place] treatment facilities. Appointment Date/Time Appointment Type Appointme nt Facility Name Sep 29, 2025 03:00 PM AMBULATORY - PSYCHIATRY [facility] [place] [facility] Oct 06, 2025 08:30 PM AMBULATORY - MEDICINE AR [facility] [place] [place] [facility] Oct 13, 2025 03:00 PM AMBULATORY - PSYCHIATRY [facility] [facility] Jan 24, 2026 02:30 PM AMBULATORY - NONE [facility] Jan 24, 2026 03:00 PM AMBULATORY - MEDICINE [facility] Active, Pending, and Scheduled Orders This section includes a listing of several types of active, pending, and scheduled orders, including clinic medications orders, diagnostic test orders, procedure orders and consult orders; where the start date of the order is 45 days before the date of the Encounter or 45 days after the date of theEncounter. The data comes from all [place] treatment facilities. Test Date/Time Test Type Test Details Facility Name Sep 05, 2025 03:02 PM Consult Order COMMUNITY CARE-SLEEP STUDY Cons Precinct Police Sergeant's Choice [facility] Social History: Smoking Status (Most current) and Tobacco Use (All prior to encounter date) This section includes the most current, and the historical, smoking and tobacco- related health factors from the VA facility where the Encounter took place. Current Smoking Status This section includes the most current smoking, or tobacco-related health factor, from the [place] facility where the Encounter took place. Date/Time Current Smoking Status Comment Facil ity Jul 26, 2025 03:00 PM VA-TOBACCO USE FOR JESSICA CIGARETTES [facility] Tobacco Use History This section includes a history of the smoking, or tobacco-related health factors, that were collected on or before the date of the Encounter. The data comes from the [place] facility where the Encounter took place. Date/Time Smoking Status/Tobacco Use Comment F acility Jul 26, 2025 03:00 PM VA-TOBACCO USE FOR JESSICA CIGARETTES AR [facility] [place] [facility] Jul 07, 2024 03:00 PM VA-TOBACCO FORMER USER AR [facility]TR [facility] Jul 07, 2024 03:00 PM VA-TOBACCO QUIT 5 TO < 15 YRS [facility] Jun 01, 2023 03:30 PM VA-TOBACCO FORMER USER AR [facility] [place] [facility] Jun 01, 2023 03:30 PM VA-TOBACCO QUIT 5 TO < 15 YRS AR [facility] [place] [facility] Encounter Notes: All associated encounter notes This section contains the clinical notes associated to the Encounter. Date/Time Encounter Note(s) Provider Source Sep 22, 2025 04:25 PM PSYCHOLOGY NOTE: LOCAL TITLE: PSYCHOLOGY NOTE STANDARD TITLE: PSYCHOLOGY NOTE DATE OF NOTE: SEP 22, 2025@16:25 ENTRY DATE: SEP 22, 2025@16:25:13 AUTHOR: RONAN VELIZ COSIGNER: URGENCY: STATUS: COMPLETED IDENTITY VERIFICATION [X] Patient Name [X] Visual recognition [ ] Birthdate [ ] Social Security # This was a 50 minute appointment on 09/22/2025 in the treatment of issues related to PTSD. DATA: The reported improved mental well being and stability since our last meeting. We processed his reflections on what he had learned regarding his family and the impact it had on him. The [place] shared that he was learning to sit with the emotions traumatic content brought up, and had been trying intentionally to do this on a daily basis. He shared the sense that this was helping. We discussed this and it's integration into treatment process at length. ASSESSMENT: The [place] was on time to the appointment and was engaged. Grooming and dress were WNL. Gross motor function was WNL. Mood was anxious and affect was congruent and varied appropriately. Speech was WNL. Insight and judgement were intact. There was no evidence of A/VH or thought disorder. Homocidality/suicidality were denied. PLAN: The [place] will RTC for individual therapy with Dr. Ronan Veliz on 09/29/2025. /tanmay/ RONAN VELIZ, PHD Psychologist Signed: 09/22/2025 16:27 RONAN VELIZ [place] [facility] [place] [facility] Sep 18, 2025 02:16 PM MENTAL HEALTH DIAG NOSTIC STUDY NOTE: LOCAL TITLE: MENTAL HEALTH DIAGNOSTIC STUDY STANDARD TITLE: MENTAL HEALTH DIAGNOSTIC STUDY NOTE DATE OF NOTE: SEP 18, 2025@14:16:10 ENTRY DATE: SEP 18, 2025@14:16:10 AUTHOR: KEREN,RONAN A EXP COSIGNER: URGENCY: STATUS: COMPLETED [place] completed assessments that were sent by [facility] via text/email. These assessments were completed by TODD JORGENSEN on their own device on 09/18/2025 1:07:02 PM. PATIENT HEALTH QUESTIONNAIRE-9 (PHQ-9) The patient [...] every day 5. Poor appetite or over-eating: Nearly every day 6. Feeling bad about yourself - or that you are a failure, or have let yourself or your family down: Nearly every day 7. Trouble concentrating on things, such as reading the newspaper or watching television: Nearly every day 8. Moving or speaking so slowly that other people could have noticed. Or the opposite - being so fidgety or restless that you have been moving around a lot more than usual: Nearly every day 9. Thoughts that you would be better off , or of hurting yourself in some way: More than half the days PHQ-9 total score = 23 1-4 = minimal symptoms 5-9= mild symptoms 10-14= moderate symptoms 15-19= moderately severe symptoms 20-27= severe depressive symptoms How difficult have these problems made it for you to do work, difficult to work, take care of things at home, or get along with others: extremely. PHQ-9 Total Score (past 180 days): 09/18/2025 23 09/04/2025 20 08/22/2025 1 07/23/2025 18 07/11/2025 [...] Irritable behavior, angry outbursts, or acting aggressively?: Extremely 16. Taking too many risks or doing things that could cause you harm?: Quite a bit 17. Being 'superalert' or watchful or on guard?: Extremely 18. Feeling jumpy or easily startled?: Extremely 19. Having difficulty concentrating?: Quite a bit 20. Trouble falling or staying asleep?: Extremely PCL-5 total score = 70 This measure assesses an individual's perception of [...] PCL-5 Weekly Total Score (past 180 days): 09/18/2025 70 09/04/2025 67 08/22/2025 37 07/23/2025 47 07/11/2025 63 06/26/2025 68 2025 40 /es/ RONAN VELIZ, PHD Psychologist Signed: 09/18/2025 15:59 RONAN VELIZ AR [facility]
--- OUTSIDE RECORDS SUMMARY | 2025-10-06 15:18 | XMS_ITS | Continuity of Care Document ---
Author Name [facility] Organization [facility] Care Team Providers Care Tool Clerk Name Role Phone [facility] Unavailable Unavailable Problems Combined list of problems from Department of Defense and Veterans Affairs facilities. It does not include entries that were removed or entered in error. Problem Status Onset Date Problem Type Date of Resolution Comments Source Primary erectile dysfunction Active 10/12/19 14 Condition [facility] Adult attention deficit hyperactivity disorder (SNOMED CT 911753934) Active Condition [place] Asthma (SCT 944101675) Active Condition [facility] Attention deficit hyperactivity disorder, combined type Active Condition [facility] Chronic Post-Traumatic Stress Disorder (SCT 537597140) Active Condition [facility] Cough (SNOMED CT 52052695) Active Condition [facility] Exposure to potentially hazardous substance Active Condition Dec 30, 2023 Entered By: ALISA POSADA Comment: Connect Snomed Code to ICD 10 Code refer to note dated 06/24/23 [facility] Family history of cancer of colon Active Condition [facility] Fatty liver Active Condition [facility] Gastroesophageal reflux disease Active Condition [facility] Hyperlipidemia (SCT 91321390) Active Condition [facility] Hyperlipidemia (SNOMED CT 26823649) Active Condition [facility] Hypothyroid (SNOMED CT 54364934) Active Condition [facility] Hypothyroidism (SCT 09090549) Active Condition [facility] Impotence (SNOMED CT 531929043) Active Condition [facility] Moderate Recurrent Major Depression (SCT 33940958) Active Condition [facility] Multiple nodules of lung Active Condition [facility] Right knee pain Active Condition [facility] Screening for malignant neoplasm of colon done Active Condition Jun 25, 2023 Entered By: VANESSA CAO Comment: due Oct 2024 [facility] Social anxiety disorder Active Condition [facility] Diagnosis: ICD-10-CM F43.12 Post-traumatic stress disorder, chronic Active Diagnosis [facility] Diagnosis: ICD-10-CM G47.30 Sleep apnea, unspecified Active Diagnosis [facility] Diagnosis: ICD-10-CM R91.8 Other nonspecific abnormal finding of lung field Active Diagnosis [facility] Diagnosis: ICD-10-CM R06.83 Snoring Active Diagnosis [facility] Diagnosis: ICD-10-CM Z12.2 Encntr screen for malignant neoplasm of respiratory organs Active Diagnosis [facility] Diagnosis: ICD-10-CM F33.1 Major depressive disorder, recurrent, moderate Active Diagnosis [facility] Diagnosis: ICD-10-CM K76.0 Fatty (change of) liver, not elsewhere classified Active Diagnosis [facility] Diagnosis: ICD-10-CM J44.9 Chronic obstructive pulmonary disease, unspecified Active Diagnosis [facility] Diagnosis: ICD-10-CM Z71.89 Other specified counseling Active Diagnosis [facility] Diagnosis: ICD-10-CM G47.33 Obstructive sleep apnea (adult) (pediatric) Active Diagnosis [facility] Diagnosis: ICD-10-CM F90.2 Attention-deficit hyperactivity disorder, combined type Active Diagnosis [facility] Diagnosis: ICD-10-CM J20.9 Acute bronchitis, unspecified Active Diagnosis [facility] Diagnosis: ICD-10-CM F40.10 Social phobia, unspecified Active Diagnosis [facility] Diagnosis: ICD-10-CM F84.0 Autistic disorder Active Diagnosis [facility] Diagnosis: ICD-10-CM N52.9 Male erectile dysfunction, unspecified Active Diagnosis [facility] Diagnosis: ICD-10-CM J01.90 Acute sinusitis, unspecified Active Diagnosis [facility] Medications Combined list of outpatient medications from Department of Defense and Veterans Affairs facilities.Medications provided include 1) outpatient medications from the last 15 months, and 2) patient-reported medications. Medication Details Route Status Indication(s) Patie nt Instructions Prescription Expires Prescription Number Last Dispense Date Ordering Provider Order Date Order Qty Source ALBUTEROL SO4 3MG/IPRATRO PIUM BR 0.5MG/3ML INHL,3ML INHALE 1 VIAL (3ML) IN NEBULIZE R THREE TIMES DAILY NEEDED FOR BRONCHOS PASM RESPIR ATORY (INHAL ATION) 09/25/2024 [id number] DAVID KESSLER 2023 30 [facility] ATOMOXETINE 60MG CAP TAKE ONE CAPSULE BY MOUTH TWICE DAILY FOR ADHD ORAL HOLD 12/28/2025 [id number] 5 SANCHEZ DANIELLE 2024 180 [facility] ATOMOXETINE 60MG CAP TAKE ONE CAPSULE BY MOUTH TWICE DAILY FOR ADHD ORAL DISCONT INUED 06/17/2025 [id number] 5 SANCHEZ DANIELLE 2023 180 [facility] CYANOCOBALA MIN 1000MCG TAB TAKE ONE TABLET BY MOUTH ONCE DAILY FOR PREVENTI ON OF VITAMIN B12 DEFICIEN CY ORAL ACTIVE 07/27/2026 [id number] ZANE CAO 2024 90 [facility] CYANOCOBALA MIN 1000MCG TAB TAKE ONE TABLET BY MOUTH ONCE DAILY FOR PREVENTI ON OF VITAMIN B12 DEFICIEN CY ORAL DISCONT INUED 07/22/2025 [id number] 5 ZANE CAO 2023 90 [facility] DEXTROMETHO RPHAN HBR 10MG/GUAIFE NESIN 100MG/5ML (AF & SF) LIQUID TAKE 5 MLS BY MOUTH EVERY 6 HOURS NEEDED FOR COUGH ORAL 08/27/2025 [id number] 4 DAVID KESSLER 2023 240 [facility] FLUTICASONE 250MCG/SALM ETEROL 50MCG INHL,ORAL,D ISKUS,60 INHALE 1 PUFF BY MOUTH TWICE DAILY FOR BRONCHOS PASM PREVENTI ON WITH COPD - RINSE MOUTH AFTER USE RESPIR ATORY (INHAL ATION) 12/10/2024 [id number] 5 DAVID KESSLER 2024 1 [facility] FLUTICASONE PROPIONATE 50MCG/SPRAY SOLN,NASAL, 16GM INSTILL 1 SPRAY INTO EACH NOSTRIL TWICE DAILY FOR NASAL IRRITATI ON/INFLA MMATION NASAL ACTIVE 01/07/2026 [id number] 5 ZANE CAO 2024 1 [facility] LEVOTHYROXI NE NA 125MCG TAB TAKE ONE TABLET BY MOUTH EVERY MORNING 30 MINUTES BEFORE BREAKFAS T FOR THYROID TAKE ON AN EMPTY STOMACH WITH A FULL GLASS OF WATER ORAL SUSPEND ED 07/27/2026 [id number] 6 ZANE CAO 2024 90 [facility] LEVOTHYROXI NE NA 125MCG TAB TAKE ONE TABLET BY MOUTH EVERY MORNING 30 MINUTES BEFORE BREAKFAS T FOR THYROID TAKE ON AN EMPTY STOMACH WITH A FULL GLASS OF WATER ORAL DISCONT INUED 05/15/2026 [id number] 5 ZANE CAO 2024 90 [facility] LEVOTHYROXI NE NA 125MCG TAB TAKE ONE TABLET BY MOUTH EVERY MORNING 30 MINUTES BEFORE BREAKFAS T FOR THYROID TAKE ON AN EMPTY STOMACH WITH A FULL GLASS OF WATER ORAL DISCONT INUED 09/29/2025 [id number] 5 ZANE CAO 2023 90 [facility] MECLIZINE HCL 12.5MG TAB TAKE ONE TABLET BY MOUTH EVERY 12 HOURS NEEDED FOR DIZZINES S ORAL 09/25/2024 [id number] 4 DAVID KESSLER 2023 30 [facility] OMEPRAZOLE 20MG CAP,EC TAKE TWO CAPSULES BY MOUTH EVERY MORNING 30 MINUTES BEFORE BREAKFAS T FOR EXCESSIV E PRODUCTI ON OF STOMACH ACID ORAL SUSPEND ED 07/27/2026 [id number] 6 ZANE CAO 2024 180 [facility] OMEPRAZOLE 20MG CAP,EC TAKE TWO CAPSULES BY MOUTH EVERY MORNING 30 MINUTES BEFORE BREAKFAS T FOR EXCESSIV E PRODUCTI ON OF STOMACH ACID ORAL DISCONT INUED 07/08/2025 [id number] 5 ZANE CAO 2023 180 [facility] PREDNISONE 20MG TAB TAKE THREE TABLETS BY MOUTH ONCE DAILY FOR 2 DAYS, THEN TAKE TWO TABLETS ONCE DAILY FOR 2 DAYS, THEN TAKE ONE TABLET ONCE DAILY FOR 2 DAYS ORAL 09/25/2024 [id number] 4 DAVID KESSLER 2023 12 [facility] SERTRALINE HCL 100MG TAB TAKE ONE-HALF TABLET BY MOUTH ONCE DAILY FOR MAJOR DEPRESSI VE DISORDER ORAL ACTIVE 12/28/2025 [id number] 5 SANCHEZ DANIELLE 2024 45 [facility] SERTRALINE HCL 100MG TAB TAKE ONE-HALF TABLET BY MOUTH ONCE DAILY FOR MAJOR DEPRESSI VE DISORDER ORAL 06/17/2025 [id number] 5 SANCHEZ DANIELLE 2023 45 [facility] SILDENAFIL CITRATE 100MG TAB TAKE ONE TABLET BY MOUTH ONCE DAILY NEEDED FOR ERECTILE DYSFUNCT ION TAKE 1 HOUR PRIOR TO SEXUAL ACTIVITY ORAL ACTIVE 01/07/2026 [id number] 5 ZANE CAO 2024 18 [facility] SIMVASTATIN 80MG TAB TAKE ONE-HALF TABLET BY MOUTH ONCE DAILY FOR HIGH CHOLESTE ROL FOR CHOLESTE ROL ORAL 12/08/2024 [id number] 5 CAOZANE MCGREGOR 2023 45 [facility] Allergies, Adverse Reactions, Alerts Combined list of allergies from Department of Defense and Veterans [facility] facilities. It does not include entries that were removed or entered in error. Substance Category Reaction Severity Reaction type Status Date Reported Comments Source ADDERALL Propensity to adverse reactions to drug (finding) Dizziness active 3 [facility] AMPHETAMINES Propensity to adverse reactions to drug (finding) Drowsy, Lethargy, Excessive salivation - symptom active 3 [facility] RITALIN Propensity to adverse reactions to drug (finding) Dizziness active 3 [place] [facility] RITALIN Propensity to adverse reactions to drug (finding) active 3 [facility] Immunizations Combined list of available immunizations from the Department of Defense and Veterans Affairs facilities. Immunization Series Date Given Administered By Site Reaction Lot Number CVX Code Drug Hand Bender Status Comments Source COVID-19 (MODERNA), MRNA, LNP-S, PF, 50 MCG/0.5 ML (AGES 12+ YEARS) 2023 EDMOND MARCELO LEFT DELTO ID [id number] 312 complet ed Booster for Series, [facility] PNEUMOCOCCAL CONJUGATE PCV20, POLYSACCHARID E [id number] CONJUGATE, ADJUVANT, PF 2022 FRNAK ARANA HY E LEFT DELTO ID [id number] 216 complet ed [facility] TDAP 2022 FRANK ARANA HY E RIGHT DELTO ID [id number] 115 complet ed [facility] HEP A-HEP B 1 2021 104 complet ed HISTORICA L INFORMATI ON - FROM OTHER REGISTRY, HEP A-HEP B- V/[facility] [place] [facility] PNEUMOCOCCAL CONJUGATE PCV20, POLYSACCHARID E [id number] CONJUGATE, ADJUVANT, PF 2021 216 complet ed [facility] TDAP 2021 NONE 115 complet ed Adacel, mnf. Jordan Prado [facility] , left deltoid IM [id number] exp.10/23 [facility] COVID-19 (MODERNA), MRNA, LNP-S, PF, 100 MCG/0.5ML DOSE OR 50 MCG/0.25ML DOSE 3 2020 207 complet ed HISTORICA L INFORMATI ON - FROM OTHER REGISTRY, COVID-19 (MODERNA) , MRNA, LNP-S, PF, 100 MCG/0.5ML DOSE OR 50 MCG/0.25M L DOSE-[facility]/ [place] Mfr: [employer] [place] [facility] [place] [facility] COVID-19 (MODERNA), MRNA, LNP-S, PF, 100 MCG/0.5ML DOSE OR 50 MCG/0.25ML DOSE 2 2020 207 complet ed HISTORICA L INFORMATI ON - FROM OTHER REGISTRY, COVID-19 (MODERNA) , MRNA, LNP-S, PF, 100 MCG/0.5ML DOSE OR 50 MCG/0.25M L DOSE- V/[place] Mfr: [employer] [place] [facility] [facility] COVID-19 (MODERNA), MRNA, LNP-S, PF, 100 MCG/0.5 ML DOSE 1 2020 207 complet ed MOD; [id number]; 1 [facility] TD(ADULT) UNSPECIFIED FORMULATION 2007 139 complet ed [place] [facility] Results Combined list of recent chemistry, hematology and other laboratory results from Department of Defense and Veterans Affairs, ranging from 15 months to all on record, depending upon the facility. Order Name Results Value Reference Range Date Interpretation Specimen Comments Source LIPID PANEL, NON FASTING CHOLESTERO L [MASS/VOLU ME] IN SERUM OR PLASMA 217 mg/dL 06/30 H Specimen Type: SERUM No comment entered. Ordering Provider: VANESSA CAO Report Released Date/Time: Jun 23, 2025 04:31 PM Reporting Lab: [facility] [place] [facility] [address] [facility] [address] Performing Lab: [place] [facility] [address] [facility] [address] [facility] [place] [facility] LIPID PANEL, NON FASTING TRIGLYCERI DE [MASS/VOLU ME] IN SERUM OR PLASMA 197 mg/dL 0 - 150 06/30 H Specimen Type: SERUM No comment entered. Ordering Provider: VANESSA CAO Report Released Date/Time: Jun 23, 2025 04:31 PM Reporting Lab: [facility] [place] [facility] [address] [facility] [address] Performing Lab: [place] [facility] [address] [facility] [address] [facility] LIPID PANEL, NON FASTING CHOLESTERO L IN LDL [MASS/VOLU ME] IN SERUM OR PLASMA BY CALCEDYTA N 135 mg/dL 0 - 129 06/30 H Specimen Type: SERUM No comment entered. Ordering Provider: VANESSA CAO Report Released Date/Time: Jun 23, 2025 04:31 PM Reporting Lab: [facility] [place] [address] [address] Performing Lab: [facility] [place] [facility] [address] [facility] [address] [place] [facility] [facility] LIPID PANEL, NON FASTING CHOLESTERO L.TOTAL/CH OLESTEROL IN HDL [MASS RATIO] IN SERUM OR PLASMA 5.0 06/30 Specimen Type: SERUM No comment entered. Ordering Provider: VANESSA CAO Report Released Date/Time: Jun 23, 2025 04:31 PM Reporting Lab: [facility] [address] [address] Performing Lab: [place] [facility] [address] [address] [facility]ITALRCITIZENS BAPTISTN [facility] LIPID PANEL, NON FASTING CHOLESTERO L IN HDL [MASS/VOLU ME] IN SERUM OR PLASMA 43 mg/dL 40 06/30 Specimen Type: SERUM No comment entered. Ordering Provider: VANESSA CAO Report Released Date/Time: Jun 23, 2025 04:31 PM Reporting Lab: [facility]ITALR[facility]IZENS BAPTISTN [facility] [address] Performing Lab: [facility]ITALRL TRN [facility]ITALUSE[facility] [address] [address] [facility] BASIC METABOLI C PANEL (non-fas ting) UREA NITROGEN [MASS/VOLU ME] IN SERUM OR PLASMA 15 mg/dL 8 - 26 06/30 Specimen Type: SERUM No comment entered. Ordering Provider: VANESSA CAO Report Released Date/Time: Jun 23, 2025 04:31 PM Reporting Lab: [facility]N [facility] [address] Performing Lab: [facility]ITALRCITIZENS BAPTISTN [facility]ITALUSE[address] [address] [facility] BASIC METABOLI C PANEL (non-fas ting) GLUCOSE [MASS/VOLU ME] IN SERUM OR PLASMA 85 mg/dL 65 - 100 06/30 Specimen Type: SERUM No comment entered. Ordering Provider: VANESSA CAO Report Released Date/Time: Jun 23, 2025 04:31 PM Reporting Lab: [facility]ITAL[facility] [address] Performing Lab: [facility]ITALRL TRN [facility] [address] [facility]ITALRCITIZENS BAPTISTN [facility]ITALUSE [facility] BASIC METABOLI C PANEL (non-fas ting) SODIUM [MOLES/VOL UME] IN SERUM OR PLASMA 142 mmol/L 136 - 145 06/30 Specimen Type: SERUM No comment entered. Ordering Provider: VANESSA CAO Report Released Date/Time: Jun 23, 2025 04:31 PM Reporting Lab: [facility] [place] [facility] [address] [facility] [address] Performing Lab: [place] [facility] [facility] [address] [facility] [address] [place] [facility] [place] [facility] BASIC METABOLI C PANEL (non-fas ting) POTASSIUM [MOLES/VOL UME] IN SERUM OR PLASMA 4.3 mmol/L 3.5 - 5.1 06/30 Specimen Type: SERUM No comment entered. Ordering Provider: VANESSA CAO Report Released Date/Time: Jun 23, 2025 04:31 PM Reporting Lab: [facility] [place] [address] [address] Performing Lab: [place] [address] [address] [place] [facility] [facility] [facility] BASIC METABOLI C PANEL (non-fas ting) CHLORIDE [MOLES/VOL UME] IN SERUM OR PLASMA 102 mmol/L 98 - 107 06/30 Specimen Type: SERUM No comment entered. Ordering Provider: VANESSA CAO Report Released Date/Time: Jun 23, 2025 04:31 PM Reporting Lab: [facility] [place] [address] [address] Performing Lab: [facility] [place] [address] [address] [facility] [place] [facility] BASIC METABOLI C PANEL (non-fas ting) CARBON DIOXIDE, TOTAL [MOLES/VOL UME] IN SERUM OR PLASMA 30 meq/L 22 - 29 06/30 H Specimen Type: SERUM No comment entered. Ordering Provider: VANESSA CAO Report Released Date/Time: Jun 23, 2025 04:31 PM Reporting Lab: [facility] [place] [address] [address] Performing Lab: [place] [facility] [place] [address] [address] [facility] [place] [facility] BASIC METABOLI C PANEL (non-fas ting) CALCIUM [MASS/VOLU ME] IN SERUM OR PLASMA 9.8 mg/dL 8.4 - 10.2 06/30 Specimen Type: SERUM No comment entered. Ordering Provider: VANESSA CAO Report Released Date/Time: Jun 23, 2025 04:31 PM Reporting Lab: [facility]OSPITALRUAB [facility] HOSPITALTRN [address] [address] Performing Lab: [facility]PITALRL TRN [facility]ITALUSE[address] [address] [facility]ITALUSE [facility] BASIC METABOLI C PANEL (non-fas ting) CREATININE [MASS/VOLU ME] IN SERUM OR PLASMA 0.87 mg/dL 0.72 - 1.25 06/30 Specimen Type: SERUM No comment entered. Ordering Provider: VANESSA CAO Report Released Date/Time: Jun 23, 2025 04:31 PM Reporting Lab: [facility]PITALRCITIZENS BAPTISTN [facility]ITALUSE[address] [address] Performing Lab: [facility]ITALRCITIZENS BAPTISTN [facility]ITALUSE[address] [address] [facility] BASIC METABOLI C PANEL (non-fas ting) GLOMERULAR FILTRATION RATE [VOLUME RATE/AREA] IN SERUM, PLASMA OR BLOOD BY CREATININE -BASED FORMULA (CKD-EPI 2020)/1.73 SQ M >90mL/mi n 60 06/30 Specimen Type: SERUM No comment entered. Ordering Provider: VANESSA CAO Report Released Date/Time: Jun 23, 2025 04:31 PM Reporting Lab: [facility]ITALRL TRN [facility]ITAL[facility] [address] Performing Lab: [facility]OSPITALRCITIZENS BAPTISTN [facility]ITALUSE[address] [address] [facility]ITALRCITIZENS BAPTISTN [facility]ITALUSE [facility] BASIC METABOLI C PANEL (non-fas ting) ANION GAP IN SERUM OR PLASMA BY CALCULATIO N 10 meq/L 6 - 16 06/30 Specimen Type: SERUM No comment entered. Ordering Provider: VANESSA CAO Report Released Date/Time: Jun 23, 2025 04:31 PM Reporting Lab: [facility] [place] [facility] [address] [facility] [address] Performing Lab: [facility] [place] [facility] [address] [facility] [address] [facility] [place] [facility] CBC LEUKOCYTES [#/VOLUME] IN BLOOD BY AUTOMATED COUNT 7.54 10*3/uL 4.50 - 11.00 06/30 Specimen Type: BLOOD No comment entered. Ordering Provider: VANESSA CAO Report Released Date/Time: Jun 23, 2025 04:31 PM Reporting Lab: [facility] [place] [facility] [address] [facility] [address] Performing Lab: [facility] [place] [facility] [address] [facility] [address] [place] [facility] [place] [facility] CBC ERYTHROCYT ES [#/VOLUME] IN BLOOD BY AUTOMATED COUNT 5.18 10*6/uL 4.23 - 5.66 06/30 Specimen Type: BLOOD No comment entered. Ordering Provider: VANESSA CAO Report Released Date/Time: Jun 23, 2025 04:31 PM Reporting Lab: [facility] [place] [facility] [address] [facility] [address] Performing Lab: [facility] [place] [facility] [address] [facility] [address] [place] [facility] [place] [facility] CBC HEMOGLOBIN [MASS/VOLU ME] IN BLOOD 15.5 g/dL 12.8 - 17 06/30 Specimen Type: BLOOD No comment entered. Ordering Provider: VANESSA CAO Report Released Date/Time: Jun 23, 2025 04:31 PM Reporting Lab: [facility] [place] [facility] [address] [facility] [address] Performing Lab: [facility] [place] [facility] [address] [facility] [address] [place] [facility] [place] [facility] CBC HEMATOCRIT [VOLUME FRACTION] OF BLOOD BY AUTOMATED COUNT 45.6 39.2 - 50.4 06/30 Specimen Type: BLOOD No comment entered. Ordering Provider: VANESSA CAO Report Released Date/Time: Jun 23, 2025 04:31 PM Reporting Lab: [facility] [place] [facility] [address] [facility] [address] Performing Lab: [facility] [place] [facility] [address] [facility] [address] [place] [facility] [place] [facility] CBC MCV [ENTITIC MEAN VOLUME] IN RED BLOOD CELLS BY AUTOMATED COUNT 88.0 fL 82 - 99 06/30 Specimen Type: BLOOD No comment entered. Ordering Provider: VANESSA CAO Report Released Date/Time: Jun 23, 2025 04:31 PM Reporting Lab: [facility] [place] [facility] [address] [facility] [address] Performing Lab: [facility] [place] [facility] [address] [facility] [address] [place] [facility] [place] [facility] CBC MCHC [ENTITIC MASS/VOLUM E] IN RED BLOOD CELLS BY AUTOMATED COUNT 34.0 g/dL 30.8 - 35.1 06/30 Specimen Type: BLOOD No comment entered. Ordering Provider: VANESSA CAO Report Released Date/Time: Jun 23, 2025 04:31 PM Reporting Lab: [place] [facility] [facility] [address] [facility] [address] Performing Lab: [facility] [place] [facility] [address] [facility] [address] [place] [facility] [place] [facility] CBC PLATELETS [#/VOLUME] IN BLOOD BY AUTOMATED COUNT 344 10*3/uL 140 - 360 06/30 Specimen Type: BLOOD No comment entered. Ordering Provider: VANESSA CAO Report Released Date/Time: Jun 23, 2025 04:31 PM Reporting Lab: [facility] [place] [facility] [address] [facility] [address] Performing Lab: [facility] [place] [facility] [address] [facility] [address] [place] [facility] CBC PLATELET [ENTITIC MEAN VOLUME] IN BLOOD BY AUTOMATED COUNT 9.4 fL 9.2 - 12.4 06/30 Specimen Type: BLOOD No comment entered. Ordering Provider: VANESSA CAO Report Released Date/Time: Jun 23, 2025 04:31 PM Reporting Lab: [facility] [place] [facility] [address] [facility] [address] Performing Lab[facility] [place] [facility] [address] [facility] [address] [facility] [place] [facility] CBC ERYTHROCYT E [DISTWIDTH ] IN RED BLOOD CELLS BY AUTOMATED COUNT 13.0 12.0 - 16.0 06/30 Specimen Type: BLOOD No comment entered. Ordering Provider: VANESSA CAO Report Released Date/Time: Jun 23, 2025 04:31 PM Reporting [facility] [place] [address] [address] Performing Lab[facility] [place] [facility] [address] [facility] [address] [facility] [facility] CBC MCH [ENTITIC MASS] BY AUTOMATED COUNT 29.9 pg 26.2 - 32.6 06/30 Specimen Type: BLOOD No comment entered. Ordering Provider: VANESSA CAO Report Released Date/Time: Jun 23, 2025 04:31 PM Reporting [facility] [place] [facility] [address] [facility] [address] Performing Lab: [place] [facility] [place] [facility] [address] [facility] [address] [facility] LIVER FUNCTION PROTEIN [MASS/VOLU ME] IN SERUM OR PLASMA 7.6 g/dL 6.4 - 8.3 06/30 Specimen Type: SERUM No comment entered. Ordering Provider: VANESSA CAO Report Released Date/Time: Jun 23, 2025 04:31 PM Reporting Lab: [place] [facility] [place] [address] [address] Performing Lab: [place] [facility] [place] [facility] [address] [facility] [address] [facility] LIVER FUNCTION ALBUMIN [MASS/VOLU ME] IN SERUM OR PLASMA BY BROMOCRESO L PURPLE (BCP) DYE BINDING METHOD 4.9 g/dL 3.5 - 5.2 06/30 Specimen Type: SERUM No comment entered. Ordering Provider: VANESSA CAO Report Released Date/Time: Jun 23, 2025 04:31 PM Reporting Lab: [facility] [address] [facility] [address] Performing Lab: [facility] B[facility]TIST[facility] [address] [address] [facility]ITALUSE [facility] LIVER FUNCTION ALKALINE PHOSPHATAS E [ENZYMATIC ACTIVITY/V OLUME] IN SERUM OR PLASMA 81 U/L 40 - 150 06/30 Specimen Type: SERUM No comment entered. Ordering Provider: VANESSA CAO Report Released Date/Time: Jun 23, 2025 04:31 PM Reporting Lab: [facility]ITALUSE[address] [address] Performing Lab: [facility]ITALUSE[address] [address] [facility] LIVER FUNCTION ASPARTATE AMINOTRANS FERASE [ENZYMATIC ACTIVITY/V OLUME] IN SERUM OR PLASMA BY WITH P-5'-P 21 U/L 5 - 34 06/30 Specimen Type: SERUM No comment entered. Ordering Provider: VANESSA CAO Report Released Date/Time: Jun 23, 2025 04:31 PM Reporting Lab: [facility]N [facility] [address] [facility] [address] Performing Lab: [facility] TRN [facility]ITALUSE[address] [address] [facility] LIVER FUNCTION ALANINE AMINOTRANS FERASE [ENZYMATIC ACTIVITY/V OLUME] IN SERUM OR PLASMA BY WITH P-5'-P 30 U/L 0 - 55 06/30 Specimen Type: SERUM No comment entered. Ordering Provider: VANESSA CAO Report Released Date/Time: Jun 23, 2025 04:31 PM Reporting Lab: [facility] [place] [facility] [address] [facility] [address] Performing Lab: [facility] [place] [facility] [address] [facility] [address] [facility] [place] [facility] LIVER FUNCTION BILIRUBIN. TOTAL [MASS/VOLU ME] IN SERUM OR PLASMA 0.3 mg/dL 0.2 - 1.2 06/30 Specimen Type: SERUM No comment entered. Ordering Provider: VANESSA CAO Report Released Date/Time: Jun 23, 2025 04:31 PM Reporting Lab: [facility] [place] [facility] [address] [facility] [address] Performing Lab: [place] [facility] [place] [address] [address] [place] [facility] [place] [facility] PSA PROSTATE SPECIFIC AG [MASS/VOLU ME] IN SERUM OR PLASMA BY IMMUNOASSA Y 0.9 ng/mL 0 - 4 06/30 Specimen Type: SERUM No comment entered. Ordering Provider: VANESSA CAO Report Released Date/Time: Jun 23, 2025 04:31 PM Reporting Lab: [facility] [place] [address] [address] Performing Lab: [facility] [place] [address] [address] [facility] [place] [facility] TSH THYROTROPI N [UNITS/VOL UME] IN SERUM OR PLASMA BY DETECTION LIMIT <= 0.005 MIU/L 1.55 u[IU]/mL 0.35 - 4.94 06/30 Specimen Type: SERUM No comment entered. Ordering Provider: VANESSA CAO Report Released Date/Time: Jun 23, 2025 04:31 PM Reporting Lab: [facility] [place] [address] [address] Performing Lab: [facility] [place] [address] [address] [facility]ITAL[facility] PT & INR (PROTIME ) INR IN PLATELET POOR PLASMA BY COAGULATIO N ASSAY 1.0 01/05 Specimen Type: PLASMA No comment entered. Ordering Provider: VANESSA CAO Report Released Date/Time: Dec 21, 2024 03:37 PM Reporting Lab: [address] [address] Performing Lab: [facility]ITALUSE[address] [address] [facility]ITALUSE [facility] PT & INR (PROTIME ) PROTHROMBI N TIME (PT) 10.8 s 10.0 - 13.1 01/05 Specimen Type: PLASMA No comment entered. Ordering Provider: VANESSA CAO Report Released Date/Time: Dec 21, 2024 03:37 PM Reporting Lab: [address] [address] Performing Lab: [facility] [address] [address] [facility] CERULOPL ASMIN CERULOPLAS MIN [MASS/VOLU ME] IN SERUM OR PLASMA 27 mg/dL 20 - 60 01/05 Specimen Type: SERUM No comment entered. Ordering Provider: VANESSA CAO Report Released Date/Time: Dec 21, 2024 03:37 PM Reporting Lab: [address] [address] Performing Lab: [facility]ITALUSE[facility] [address] [facility] [address] [employer] HEPATITI S B SURFACE ANTIGEN (HBsAg)- WH HEPATITIS B VIRUS SURFACE AG [PRESENCE] IN SERUM OR PLASMA BY IMMUNOASSA Y Non Reactive 01/05 Specimen Type: SERUM Comment: Hep B Surf Ag: Negative for HBsAg. Other markers of Hepatitis B virus are needed to ascertain Hepatitis B infection status. Ordering Provider: VANESSA CAO Report Released Date/Time: Dec 21, 2024 03:37 PM Reporting Lab: [facility] [place] [facility] [address] [facility] [address] Performing Lab: [facility] [place] [facility] [address] [facility] [address] [facility] [place] Vital Signs Combined list of inpatient and outpatient Vital Signs from Department of Defense and Veterans Affairs, ranging from 12 months to all on record, depending upon the facility. Vital Sign Value Date Comments Source SYSTOLIC BLOOD PRESSURE 146 07/26/20 14:35:03 [facility] [place] [facility] DIASTOLIC BLOOD PRESSURE 89 025 14:35:03 [facility] [place] [facility] PULSE OXIMETRY 98 % 07/26/2025 14:35:03 [facility] [place] [facility] WEIGHT 239 07/26/2025 14:35:03 [facility] [place] [facility] BMI 32 kg/m2 07/26/2025 14:35:03 [facility] [place] [facility] PAIN 0 07/26/2025 14:35:03 [facility] [place] [facility] HEIGHT 72 07/26/2025 14:35:03 [facility] [place] [facility] TEMPERATURE 98.4 07/26/2025 14:35:03 [facility] [place] [facility] PULSE 89 07/26/2025 14:35:03 [facility] [place] [facility] RESPIRATION 20 07/26/2025 14:35:03 [facility] [place] [facility] SYSTOLIC BLOOD PRESSURE 124 01/07/20 25 13:51:00 [facility] [place] [facility] DIASTOLIC BLOOD PRESSURE 83 025 13:51:00 [facility] [place] [facility] PULSE OXIMETRY 99 01/06/2025 13:51:00 [facility] [place] [facility] WEIGHT 231 01/06/2025 13:51:00 [facility] [place] [facility] BMI 31 kg/m2 01/06/2025 13:51:00 [facility] [place] [facility] PAIN 0 01/06/2025 13:51:00 [facility] [place] [facility] HEIGHT 72 01/06/2025 13:51:00 [facility] [place] [facility] TEMPERATURE 98.1 01/06/2025 13:51:00 [facility] [place] [facility] PULSE 92 01/06/2025 13:51:00 [facility] [place] [facility] RESPIRATION 20 01/06/2025 13:51:00 [facility] [place] [facility] SYSTOLIC BLOOD PRESSURE 138 11/17/19 09:52:49 [facility] [place] [facility] DIASTOLIC BLOOD PRESSURE 90 025 09:52:49 [facility] [place] [facility] PULSE OXIMETRY 98 11/17/2024 09:52:49 [facility] [place] [facility] WEIGHT 232.4 11/17/2024 09:52:49 [facility] [place] [facility] BMI 32 kg/m2 11/17/2024 09:52:49 [facility] [place] PAIN 0 11/17/2024 09:52:49 [facility] [place] [facility] TEMPERATURE 97.4 11/17/2024 09:52:49 [facility] [place] [facility] PULSE 93 11/17/2024 09:52:49 [facility] [place] [facility] RESPIRATION 14 11/17/2024 09:52:49 [facility] [place] [facility] SYSTOLIC BLOOD PRESSURE 120 11/10/19 09:41:56 [facility] [place] [facility] DIASTOLIC BLOOD PRESSURE 78 025 09:41:56 [facility] [place] [facility] PULSE OXIMETRY 98 11/10/2024 09:41:56 [facility] [place] [facility] PAIN 5 11/10/2024 09:41:56 [facility] [place] [facility] TEMPERATURE 97.9 11/10/2024 09:41:56 [facility] [place] [facility] PULSE 72 11/10/2024 09:41:56 [facility] [place] [facility] RESPIRATION 18 11/10/2024 09:41:56 [facility] [place] [facility] Encounters Combined list of: 1) Encounters from Department of Veterans Affairs facilities going backup to the last 18 months, not all VA inpatient encounters are included; 2) Encounters from the Department of Defense facilities going backup to 280 months. Location Location Details Encounter Type Encounter Number Reason For Visit Attending Provider ADM Date DC Date Status Disposition Source [facility] PSY[facility] W PT 60 MINUTES [id number] Diagnos is: ICD-10- CM F40.10 Social phobia, unspeci fied LAINE ANGUIANO 04/11 [facility] C.Antoinette [facility] Outpatient Encounter [id number] 04/26 [place] Out[facility] Encounter [id number] 05/09 [facility] PSYTX W PT 45 MINUTES [id number] Diagnos is: ICD-10- CM F43.12 Post-tr aumatic stress disorde r, chronic LAINE ANGUIANO 05/16 [facility] En[facility] [id number] 05/17 [facility] En[facility] [id number] 05/24 [facility] En[facility] [id number] 05/25 [facility] Encounter [id number] 05/25 [facility] OFFICE O/P EST LOW 20 MIN [id number] Diagnos is: ICD-10- CM J01.90 Acute sinusit is, unspeci fied KHANG BOLIVAR 05/26 [facility] PSYTX W PT 45 MINUTES [id number] Diagnos is: ICD-10- CM F40.10 Social phobia, unspeci fied ANNMARIELAINE TOURE M 05/30 [facility] [place] [facility] PSYTX W PT 45 MINUTES [id number] 1. Diagnos is: ICD-10- CM F40.10 Social phobia, unspeci fied ANNMARIELAINE TOURE M 06/06 [facility] [place] [facility] Outpatient Encounter [id number] 1.06/14 [facility] [place] [facility] Outpatient Encounter [id number] [facility] [place] [facility] MTMS BY PHARM ADDL 15 MIN [id number] 1. 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, combine d type ANNMARIE,LAINE Leger 06/27 [facility] Out[facility] Encounter [id number] 06/30 [facility] PSYTX W PT 45 MINUTES [id number] Diagnos is: ICD-10- CM F40.10 Social phobia, unspeci fied ANNMARIE,LAINE Leger 07/04 [facility] [place] [facility] OFFICE O/P EST MOD 30 MIN [id number] Diagnos is: ICD-10- CM N52.9 Male erectil e dysfunc tion, unspeci fied CAO,W RAMIN J 07/07 [facility] PSYTX W PT 30 MINUTES [id number] Diagnos is: ICD-10- CM F40.10 Social phobia, unspeci fied ANNMARIE,LAINE Leger 07/11 [facility] PSYTX W PT 45 MINUTES [id number] Diagnos is: ICD-10- CM F40.10 Social phobia, unspeci fied ANNMARIE,LAINE Leger 08/01 [facility] [place] [facility] PSYCL/NRPS YC TST PHY/Q[place] [id number] Diagnos is: ICD-10- CM F84.0 Autisti c disorde r FEARING,MS FIDE A 08/08 [facility] PSYTX W PT 45 MINUTES [id number] Diagnos is: ICD-10- CM F40.10 Social phobia, unspeci fied ANNMARIE,LAINE TOURE M 08/08 [facility] PSYTX W PT 45 MINUTES [id number] Diagnos is: ICD-10- CM F40.10 Social phobia, unspeci fied ANNMARIE,LAINE TOURE M 08/15 [facility] [place] [facility] HC PRO PHONE CALL 5-10 MIN [id number] 1. Diagnos is: ICD-10- CM F43.12 Post-tr aumatic stress disorde r, chronic ANNMARIE,LAINE TOURE M 08/25 [facility] [place] [facility] Outpatient Encounter [id number] TIFFANIE MARCELO 08/26 [facility] OFF/OP EST MAY X REQ PHY/QHP [id number] 1. 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 Diagnos is: ICD-10- CM G47.33 Obstruc tive sleep apnea (adult) ([facility] mireya) LYNDSAY VALLE MIREYA 09/07 [facility] En[facility] [id number] 1.09/13 [facility] En[facility] [id number] 1. 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 TIFFANIE MARCELO 11/10 [facility] [place] [place] [place] OFFICE O/P EST HI 40 MIN [id number] Diagnos is: ICD-10- CM J44.9 Chronic obstruc tive pulmona ry disease , unspeci CARI Glover 11/10 [facility] [place] Outpatient Encounter [id number] 11/17 [facility] [place] [place] OFFICE O/P NEW MOD 45 MIN [id number] Diagnos is: ICD-10- CM K76.0 Fatty (change of) liver, not elsewhe re classif ied AILEEN BLACK 11/17 [facility] F[facility] FEE [id number] Diagnos is: ICD-10- CM K76.0 Fatty (change of) liver, not elsewhe re classif ied AILEEN BLACK 11/17 [facility] [place] [place] PSYTX W PT 45 MINUTES [id number] Diagnos is: ICD-10- CM F33.1 Major depress ortega disorde r, recurre nt, moderat e LAINE ANGUIANO 11/24 [facility] [place] [place] Outpatient Encounter [id number] 12/08 [facility] [place] [place] Outpatient Encounter [id number] 12/13 [facility] [place] PSYTX W PT 45 MINUTES [id number] Diagnos is: ICD-10- CM F33.1 Major depress ortega disorde r, recurre nt, moderat e LAINE ANGUIANO TEJAL M 12/19 [facility] PSYTX W PT 60 MINUTES [id number] Diagnos is: ICD-10- CM F43.12 Post-tr aumatic stress disorde r, chronic ANNMARIELAINE TOURE M 12/26 [facility] En[facility] [id number] LAINE VELIZ A 12/26 [facility] Out[facility] En[facility] [id number] 12/28 [facility] En[facility] [id number] 1.01/06 [facility] OFFICE O/P EST HI 40 MIN [id number] Diagnos is: ICD-10- CM R91.8 Other nonspec ific abnorma l finding of lung field Jaskaran CAO 01/06 [facility] NQHP OL DIG ASSMT&MGMT 21+ [id number] 1. Diagnos is: ICD-10- CM Z12.2 Encntr screen for maligna nt neoplas m of respira tory organs MARIBEL MARIE 01/06 [facility] Out[facility] En[facility] [id number] 01/09 [facility] PSYTX W PT 45 MINUTES [id number] Diagnos is: ICD-10- CM F43.12 Post-tr aumatic stress disorde r, el ANNMARIELAINE VILLALBA 01/23 [facility] PSYTX W PT 45 MINUTES [id number] Diagnos is: ICD-10- CM F43.12 Post-tr aumatic stress disorde r, chronic ANNMARIELAINE 02/06 [facility] PSYTX W PT 45 MINUTES [id number] Diagnos is: ICD-10- CM F43.12 Post-tr aumatic stress disorde r, el ANNMARIELAINE VILLALBA 02/20 [facility] PSYTX W PT 45 MINUTES [id number] Diagnos is: ICD-10- CM F43.12 Post-tr aumatic stress disorde r, el PITTSDMLAINE VILLALBA 03/10 [facility] PSYTX W PT 30 MINUTES [id number] Diagnos is: ICD-10- CM F43.12 Post-tr aumatic stress disorde r, chronic ANNMARIELAINE 03/21 [facility] PSYTX W PT 45 MINUTES [id number] Diagnos is: ICD-10- CM F43.12 Post-tr aumatic stress disorde r, chronic ANNMARIELAINE 04/03 [facility] PSYTX W PT 45 MINUTES [id number] Diagnos is: ICD-10- CM F43.12 Post-tr aumatic stress disorde r, chronic ANNMARIE,BR CARINANEY M 04/17 [facility] PSYTX W PT 60 MINUTES [id number] Diagnos is: ICD-10- CM F43.12 Post-tr aumatic stress disorde r, chronic KEREN,BR YAYA A 05/10 [facility] Out[facility] En[facility] [id number] TIFFANIE MARCELO A 05/11 [facility] PSYTX W PT 45 MINUTES [id number] Diagnos is: ICD-10- CM F43.12 Post-tr aumatic stress disorde r, chronic KEREN,BR YAYA A 05/29 [facility] PSYTX W PT 45 MINUTES [id number] Diagnos is: ICD-10- CM F43.12 Post-tr aumatic stress disorde r, chronic KEREN,BR YAYA A 06/16 [facility] PSYTX W PT 45 MINUTES [id number] Diagnos is: ICD-10- CM F43.12 Post-tr aumatic stress disorde r, chronic KEREN,BR YAYA A 06/23 [facility] Out[facility] Encounter [id number] 06/29 [facility] PSYTX W PT 45 MINUTES [id number] Diagnos is: ICD-10- CM F43.12 Post-tr aumatic stress disorde r, chronic KEREN,BR YAYA A 06/30 [facility] En[facility] [id number] Jaskaran CAO 06/30 [facility] PSYTX W PT 45 MINUTES [id number] Diagnos is: ICD-10- CM F43.12 Post-tr aumatic stress disorde r, chronic KEREN,BR YAYA A 07/07 [facility] EDU&TRN PT SELF-MGMT NQHP 1 [id number] Diagnos is: ICD-10- CM R06.83 Snoring TORI,FREDE MIREYA 07/10 [facility] Out[facility] Encounter [id number] 07/11 [facility] Out[facility] Encounter [id number] 07/11 [facility] PSYTX W PT 45 MINUTES [id number] Diagnos is: ICD-10- CM F43.12 Post-tr aumatic stress disorde r, chronic KEREN,BR YAYA A 07/26 [facility] OFFICE O/P EST HI 40 MIN [id number] Diagnos is: ICD-10- CM R91.8 Other nonspec ific abnorma l finding of lung field Jaskaran CAO 07/26 [facility] PSYTX W PT 45 MINUTES [id number] Diagnos is: ICD-10- CM F43.12 Post-tr aumatic stress disorde r, chronic KEREN,BR YAYA A 08/15 [facility] UN[facility]&RESP EFFT [id number] Diagnos is: ICD-10- CM G47.30 Sleep apnea, unspeci fied CURIOSO-UY ,BRAXTON 08/15 [facility] PSYTX W PT 45 MINUTES [id number] Diagnos is: ICD-10- CM F43.12 Post-tr aumatic stress disorde r, chronic KEREN,BR YAYA A 08/24 [facility] PSYTX W PT 45 MINUTES [id number] Diagnos is: ICD-10- CM F43.12 Post-tr aumatic stress disorde r, chronic KEREN,BR YAYA A 08/31 [facility] Out[facility] Encounter [id number] 09/04 [facility] PSYTX W PT 45 MINUTES [id number] Diagnos is: ICD-10- CM F43.12 Post-tr aumatic stress disorde r, chronic KEREN,BR YAYA A 09/05 [facility] Out[facility] En[facility] [id number] 09/06 [facility] PSYTX W PT 45 MINUTES [id number] Diagnos is: ICD-10- CM F43.12 Post-tr aumatic stress disorde r, chronic KEREN,BR YAYA A 09/14 [facility] PSYTX W PT 60 MINUTES [id number] Diagnos is: ICD-10- CM F43.12 Post-tr aumatic stress disorde r, chronic KEREN,BR YAYA A 09/22 [facility] PSYTX W PT 45 MINUTES [id number] Diagnos is: ICD-10- CM F43.12 Post-tr aumatic stress disorde r, chronic KEREN,BR YAYA A 09/29 [facility] [facility] Social History Combined list of available smoking, tobacco, and other social history from Department of Defense and Veterans Affairs facilities. Social History Type Response Date Comment Source Tobacco smoking status [facility] VA-TOBACCO USE FORMER CIGARETTES 07/26/2025 [facility] [place] [facility] History of tobacco use TX-TOBACCO NEVER USED OTHER TYPE 07/26/2025 [facility] [place] [facility] History of tobacco use VA-TOBACCO FORMER USER 07/07/2024 [facility] [place] [facility] History of tobacco use VA-TOBACCO FORMER USER 06/01/2023 [facility] [place] [facility] History of tobacco use VA-TOBACCO FORMER USER 03/17/2022 [facility] History of tobacco use VA-TOBACCO FORMER USER 01/31/2021 [facility] History of tobacco use VA-TOBACCO QUIT 5 TO < 15 YRS 11/07/2019 [facility] History of tobacco use TX-TOBACCO QUIT 5 TO < 15 YRS 10/19/2018 [facility] History of tobacco use PREVIOUS TOBACCO USER 12/30/2017 quit 2011 [facility] History of tobacco use LIFETIME NON TOBACCO USER 08/14/2017 [facility] History of tobacco use LIFETIME NON TOBACCO USER 06/10/2017 [facility] History of tobacco use PREVIOUS TOBACCO USER 12/10/2016 Patient reports that he quit smoking in 2011. [facility] History of tobacco use LIFETIME NON TOBACCO USER 05/28/2016 Patient reports that he quit smoking in 2012. [facility] History of tobacco use PREVIOUS TOBACCO USER 02/14/2015 quit 3 years ago [facility] History of tobacco use PREVIOUS TOBACCO USER 09/22/2014 quit in 2010; quit chewing in 2012 [facility] History of tobacco use LIFETIME NON TOBACCO USER 08/31/2014 [facility] History of tobacco use PREVIOUS TOBACCO USER 03/08/2014 quit smoking 2 years ago and chewing about 1.5 years ago [facility] History of tobacco use PREVIOUS TOBACCO USER 01/13/2014 [facility] History of tobacco use PREVIOUS TOBACCO USER 11/11/2013 quit smoking 3 yrs ago; quit chewing 1 year ago. [facility] Plan of Care List of future care activities from Department of [facility] Affairs facilities. Additional future care activities may be listed in the Assessment and Plan section. Date/Time Care Activity Care Activity Detail Facili ty 10/06/2025 AMBULATORY - MEDICINE AMBULATORY - MEDICI [place] [facility] [place] [facility]
--- OUTSIDE RECORDS SUMMARY | 2025-10-06 21:20 | XMS_ITS | Clinical Summary ---
Author Organization [facility] Address [address] [place] [id number] Phone Care Team Providers Care Personal Consultant Name Role Phone Nam Justin NP Primary Care Provide r Allergies Active Allergy Reactions Criticality Noted Date Comments Dextroamphetamine-Amphetamine 2023 Methylphenidate Hcl 12/23/2023 Medications levothyroxine (SYNTHROID) 125 MCG tablet Active simvastatin (ZOCOR) 40 MG tablet Active atomoxetine HCl (STRATTERA ORAL) daily. Act ortega sertraline (ZOLOFT) 100 MG tablet Take 100 mg by mouth daily. Active Social History Tobacco Use Types Packs/Day Years Used Date Smoking Tobacco: Former Cigarettes Q uit: 2012 Smokeless Tobacco: Never Tobacco Cessation:Counseling Given: Not Answered Education Answer Date Recorded Are you interested in more education? Not on jeanne e 12/02/2023 Are you concerned about learning? Not on file 12/02/2023 No 12/02/2023 No 12/02/2023 Digital Access Answer Date Recorded No 12/02/2023 No 12/02/2023 Reliable internet access at home? Not on file 12/02/2023 Device with a working camera? Not on file Sex and Gender Information Value Date Recorded Sex Assigned at Not on file Legal Sex Male 1:02 PM EST Gender Identity Not on file Sexual Orientation Not on file Last Filed Vital Signs Vital Sign Reading Time Taken Comments Blood Pressure - - Pulse - - Temperature - - Respiratory Rate - - Oxygen Saturation - - Inhaled Oxygen Concentration - - Weight 108.9 kg (240 lb) 12/23/2023 3:22 PM EDT Height 182.9 cm (6') 12/23/2023 3:22 PM EDT Body Mass Index 32.55 12/23/2023 3:22 PM EDT Plan of Treatment Health Maintenance Due Date Last Done Comments Adult Td,Tdap Booster 1969 LIPID PANEL 1969 TSH LEVEL 1969 DEPRESSION SCREENING 1981 SMOKING Hx and SMOKELESS TOB ACCO SCREENING 1982 HEPATITIS C SCREENING 1987 HIV ONE-TIME SCREENING (18-6 5 YEARS) 1987 SCREENING FOR DIABETES 2004 COLOGUARD 2014 COLONOSCOPY 2014 COLORECTAL CANCER SCREENING 2014 FIT TEST 2014 FOBT 2014 SIGMOIDOSCOPY 2014 VIRTUAL COLONOSCOPY 2014 PNEUMOCOCCAL VACCINES (50+ y ears) (1 of 1 - PCV) 2019 ZOSTER VACCINES (1 of 2) 2019 INFLUENZA VACCINE (#1) 2025 COVID-19 VACCINE (1 - 2024-2 6 season) 2025 RSV VACCINE (1 - 1-dose 75+ series) 2044 HEPATITIS A VACCINES Aged Out No long er eligible based on patient's age to complete this topic HIB VACCINES Aged Out No longer eligi ble based on patient's age to complete this topic MENINGOCOCCAL VACCINES (ACWY) Aged Out No longer eligible based on patient's age to complete this topic MENINGOCOCCAL VACCINES (B) Aged Out N o longer eligible based on patient's age to complete this topic Medical Devices Not on file Insurance [facility] [place] [address] [facility] Care Teams Personal Consultant Relationship Specialty Start Date End Date Nam Justin NP [address] [place] [address] PCP - General Nurse Practitioner 12/02/23 Additional Source Comments The information contained in this document represents components of the legal health record. It is not the complete legal health record.[facility]
--- OUTSIDE RECORDS SUMMARY | 2025-10-06 21:21 | XMS_ITS | Data Portability ---
Author Organization [facility], [address] [place] [address] Care Team Providers Care News Intern Name Role Phone [facility]) Primary Care Pro vider Assessment No assessment recorded. Plan of Treatment Reminders Order Date Submit Date Provider Last Modified By Organization Details Last Modified Time Details Appointments None recorded. Lab None recorded. Referral None recorded. Procedures None recorded. Surgeries None recorded. Imaging None recorded. Medication Orders prednisone 20 mg tablet 2022 023 [email or web address] [id number], [address] [place] [address], [address], 15:54:50 benzonatate 100 mg capsule 2022 023 [email or web address] [id number], [address] [place], [address], 19:49:08 Patient TargetsNo targets recorded. Patient Instructions Encounter Date Encounter Id Patient Instructions Last Modified By Organization Details Last Modified Time 07/04/2023 [id number] cough: care instructions [email or web address] Not available 07/04/2023 15:54:47 Reason for Referral None Reported. Problems Name Problem SNOMED Code Status Onset Date Resolution Date Notes Provider Name and Address Organization Details Recorded Time Hypothyroidism 14016877 Active 2022 MARYLOU Penaloza [facility] 15:39:50 Attention deficit hyperactivity disorder 152835774 Active 2022 MARYLOU Penaloza [facility] 15:39:56 Hypercholester olemia 22052092 Active 2022 MIAH taylor [place] - [facility] 3 15:40:06 Notes: monitoring my lung & my bowels Problem Notes None recorded. Medical Equipment None Reported. Allergies No known drug allergies Medications Name Sig Start Date Stop Date Status Note LastModified by Organization Details LastModified Time celecoxib 200 mg capsule 07/04 completed Not Available Not Available Not Available Synthroid 125 mcg tablet active Not Available Not Available Not Available prednisone 20 mg tablet Take 2 tablets every day by oral route for 5 days. 2022 active Not Available Not Available Not Avai lable simvastatin 80 mg tablet active Not Available Not Available Not Available simvastatin 40 mg tablet active Not Available Not Available Not Available benzonatate 100 mg capsule Take 1 capsule 3 times a day by oral route as needed for 10 days. 2022 active Not Available Not Available Not Avai lable mirtazapine 30 mg tablet active Not Available Not Available Not Available albuterol sulfate HFA 90 mcg/actuatio n aerosol inhaler active Not Available Not Available Not Available atomoxetine 60 mg capsule 07/04 completed Not Available Not Available Not Available Strattera daily active Not Available Not Neli ilable Not Available Vitals Date Recorded Body height Body mass index (BMI) Body weight Respiratory rate Body temperature Oxygen saturation Heart rate Systolic And Diastolic Provider Name and Address Organization Details Last Updated DateTime 3 182.88 cm 33.9 kg/m2 945826. 09 g 18 /min 97.7 [degF] 97 % 89 /min 138/94 mm[Hg] MIAH DUNCAN PA - [facility] 15:43:44 Social History Question Answer Notes LastModified by Kobo Details LastModified Time Tobacco Smoking Status Former Smoker MIAH taylor PA - [facility] 07/04/2023 15:42:06 Which Illicit Or Recreational Drugs Have You Used? Marijuana Edible [email or web address] Information not available 07/04/2023 Sex: Unknown Functional Status Question Answer Note LastModified by Kobo Details LastModified Time Do you use any illicit or recreational drugs? Yes Information not available 07/04/2023 Do you or have you ever used any other forms of tobacco or nicotine? No [email or web address] Information not available 07/04/2023 What is your level of alcohol consumption? None [email or web address] Information not available 07/04/2023 Mental Status None recorded. Family History Relationship Description Onset Age of this Age Resolved Age Notes LastModified by Organization Details LastModified Time Maternal Grandmother Small cell neuroendocri ne carcinoma [email or web address] Not available 15:41:00 Mother Malignant neoplasm of colon Not available 2022 15:41:13 Medical History No medical history recorded. Past Encounters Encounter ID Performer Location Encounter Start Date Encounter Closed Date Diagnosis/Indication Diagnosis SNOMED-CT Code Diagnosis ICD10 Code Diagnosis IMO Codes Diagnosis Note [id number] [address] [place] [facility] [address] [place] [address] 01/29/2020 09:56:39 01/29/2020 10:50:25 [id number] [address] [place] [address] 04/10/2019 18:08:52 04/10/2019 18:38:46 [id number] [place] [address] [place] [address] 07/04/2023 15:24:30 07/04/2023 15:57:25 Acute bronchitis 01717854 J20.9 Based on your Presentati on, Exam, and Lab Testing you are being diagnosed with Bronchitis I would be seen again if you develop any of the following. 1. Cough develops last longer than 3 weeks.2. Develop shortness of breath or wheezing.3 . Severe Headache with vision changes4. Stiff Neck5. Fever does not reduce a few points with Ibuprofen or Tylenol. I would go immediatel y to the Emergency Room if you develop:1. Chest Pain2. Severe Shortness of breath3. Coughing up Blood. I would be seen again if you develop any of the following symptoms.1 . Fever > 101.02. Stiff neck - where you can't turn your neck3. Trouble swallowing your saliva - drooling4. Swelling of a lymph node in your throat that is painful to touch5. Difficulty breathing6 . Severe Headache Thank you for using [facility] today, please feel free to contact our office if you have any questions or concerns. Health Concerns Section Related Observation LastModified by Organization Detai ls LastModified Time None Recorded Concern Status LastModified by Organization Details LastModified Time None Recorded Advance Directives Directive None Recorded Payers Insurance Date Sequence Insurance Name Policy Number Policy Dong Covered Member ID Dong Member ID Guarantor Name 12/10/2024 1 [facility] (O) [id number] Carrillo Garza [id number] Carrillo Garza 12/10/2024 [facility] Carrillo Garza [id number] Carrillo Garza Notes Date Note Type Note Provider Name and Address Organization Details Recorded Time 07/04/2023 text/html CoughReported by PatientHPIFor quality, patient reportsharsh,barking,pr oductive cough, anddry and wet. For severity, patient reportsworsening. For source of patient information, patient reportsinformation obtained from patientandpatient arrived at urgent care ambulatory. For timing, patient reportsgradual. For context, patient reportsnon-smoker. For associated symptoms, patient reportsno fever,no chills,no chest pain,no heartburn,no nausea, andno vomiting. Patient presents with cough-productive at times, comes & goes, strained muscle on left lower ribs from coughing so hard, pain with coughing--just getting over a head cold/sinus issues--called out of work d/t teeth hurting thursday, post nasal drip--covid test at home negative x2--pt feels he has bronchitis --just saw pcp x6 days ago--took dayquil about 6 hours ago Jennifer Vaughn NP [address] [place], [address], [place] - [facility] 07/04/2023 19:51:56
== END ==
LOC: HO.SL 20:30
PROVIDERS: PCP Nurse Practitioner Family; Visit Provider Nurse Practitioner Family
DX: R53.83 Other fatigue (principal); G47.33 Obstructive sleep apnea (adult) (pediatric); Z99.89 Dependence on other enabling machines and devices
CPT/HCPCS: 95806